=== PATIENT | male | born 1965 | race Caucasian/White ===

== ENCOUNTER 2017-09-07 09:46 | Day surgery (SDC) | payer BC ==
[2017-09-01 09:35] VITALS: BMI 29.8
[~2017-09-07 09:46] MED LIST: LACTATED RINGERS 1,000 ML IV SCH; LIDOCAINE 1% 20 ML VIAL (10MG/ML) FOR IV START INTRADERMA PRN
[2017-09-07 10:25] VITALS: TEMP 97.6
[2017-09-07] MEDS ORDERED: MIDAZOLAM 2 MG/2 ML VIAL IV ONE (10:30)
[2017-09-07] MEDS ORDERED: LIDOCAINE 1% INJ 10MG/ML (20 ML MDV) ONE (11:22)
[2017-09-07] MEDS ORDERED: PROPOFOL 10 MG/ML 20 ML VIAL IV ONE (11:22)
--- NOTE | 2017-09-07 11:59 | P.PCN ---
Date of Procedure: 09/07/17 Procedure(s) Performed: procedure: Colonoscopy and biopsy. Preoperative diagnosis: Hemoccult-positive stools. Postoperative diagnosis: 1. Diminutive polyp in the distal sigmoid biopsied but no large polyps or cancer. 2. Low-grade internal hemorrhoids without bleeding at the time of the exam. 3. Colon, otherwise, within normal limits, biopsies obtained from the right colon and blind biopsies obtained from the terminal ileum.. Preparation: GoLYTELY prep. Sedation: Was provided by anesthesia. Brief clinical history: The patient is a 52-year-old male who is referred for this evaluation because of positive occult blood in his stools. He apparently had chronic issues with diarrhea that is ascribed to irritable bowel syndrome but has no overt bleeding or other new complaints. No family history of colon cancer or inflammatory bowel disease. This would be his first colonoscopy. Procedure: With the patient on his left lateral decubitus position and after informed consent and adequate sedation, the perianal area was inspected and it did not show any fissures or fistulas. There were no masses felt on digital rectal examination. The Olympus CFQ 160L video colonoscope was then inserted in the rectum in the usual fashion and advanced to the cecum. I was not able to intubate the ileocecal valve but I was able to obtain blind biopsy from the terminal ileum. The colon appeared normal with no large polyps or cancer. The mucosa appeared healthy. There was a diminutive polyp in the distal sigmoid which I biopsied, I also obtained biopsies from the right colon. There was no obvious diverticular disease or other pathology. I retroflexed the endoscope in the rectum before the endoscope was withdrawn. Low-grade internal hemorrhoids were noted but there was no evidence of bleeding. The patient tolerated the procedure well. Plan: The patient was reassured. Will await pathology results. In the absence of upper GI complaints or anemia, I did not recommend upper GI workup at this time for further workup of his Hemoccult positive stools and this can be left as a contingency. For colon cancer screening in the future, I am recommending repeat colonoscopy in 5 years.
[2017-09-07 12:12] VITALS: RESP 16
[2017-09-07 12:22] VITALS: BP 137/73; PULSE 86
== END 2017-09-07 13:01 | disposition home or self-care (01) ==
LOC: ORWHC2ENDO 09:46
DX: K63.5 Polyp of colon (principal); K64.8 Other hemorrhoids; R19.5 Other fecal abnormalities; E78.5 Hyperlipidemia, unspecified; K21.9 Gastro-esophageal reflux disease without esophagitis; Z72.0 Tobacco use
CPT/HCPCS: 88305; 45380; J2250; J2001; J2704

== ENCOUNTER 2017-12-18 06:04 | Emergency (ER) | payer BC ==
[2017-12-18] MEDS ORDERED: SODIUM CHLORIDE 0.9% 1,000 ML IV STA ×2 (06:07)
[2017-12-18] MEDS ORDERED: MORPHINE SULFATE 4 MG/ML SYRINGE IV STA (06:07)
[2017-12-18] MEDS ORDERED: ONDANSETRON 4 MG/2 ML VIAL IVP STA (06:07)
[2017-12-18] MEDS ORDERED: RX INFO: IV CONTRAST WAS GIVEN 1 EACH MISC MISCELLANE PRN ×2 (06:29→06:30)
--- NOTE | 2017-12-18 06:30 | ED ---
General Adult HPI - General Source: patient, RN notes reviewed, old records reviewed Mode of arrival: ambulatory Limitations: no limitations <Wicho Lal - Last Filed: 12/18/17 06:29> <Cameron Kelly - Last Filed: 12/18/17 08:43> - General Chief complaint: Abdominal Pain Stated complaint: upper abd pain Time Seen by Provider: 12/18/17 06:07 - History of Present Illness Initial comments: This is a 52-year-old male the ER for evaluation of abdominal pain. Severe epigastric anterior abdominal pain. Periumbilical abdominal pain. Patient states pain started yesterday. Was milder yesterday and worse today. Worse with cough. Denies significant history of similar pain. Patient has a history of GI bleed with colonoscopy which was normal. No recent travel history or sick contacts no chest pain or shortness of breath. Patient does admit to being a smoker. (Wicho Lal) - Related Data Home Medications Medication Instructions Recorded Confirmed Diclofenac Sodium/Misoprostol 1 each PO DAILY PRN 09/01/17 09/07/17 [Arthrotec 75 mg-200 Mcg Tab] HYDROcodone/APAP 5-325MG [[place] 1 each PO BID PRN 09/01/17 09/07/17 5-325] Rosuvastatin Calcium [Crestor] 5 mg PO HS 09/01/17 09/07/17 Allergies Allergy/AdvReac Type Severity Reaction Status Date / Time No Known Allergies Allergy Verified 12/18/17 06:10 Review of Systems ROS Other: All systems not noted in ROS Statement are negative. <Wicho Lal - Last Filed: 12/18/17 06:29> ROS Other: All systems not noted in ROS Statement are negative. <Cameron Kelly - Last Filed: 12/18/17 08:43> ROS Statement: Those systems with pertinent positive or pertinent negative responses have been documented in the HPI. Past Medical History Past Medical History: Hyperlipidemia Additional Past Medical History / Comment(s): POSITIVE HEMOCCULT TEST History of Any Multi-Drug Resistant Organisms: None Reported Past Surgical History: Orthopedic Surgery Additional Past Surgical History / Comment(s): LT WRIST SX. VASECTOMY Past Anesthesia/Blood Transfusion Reactions: No Reported Reaction Past Psychological History: No Psychological Hx Reported Smoking Status: Current every day smoker Past Alcohol Use History: Daily Past Drug Use History: None Reported - Past Family History Mother Family Medical History: No Reported History <Wicho Lal - Last Filed: 12/18/17 06:29> General Exam Limitations: no limitations General appearance: alert, in no apparent distress Head exam: Present: atraumatic, normocephalic, normal inspection Eye exam: Present: normal appearance, PERRL, EOMI. Absent: scleral icterus, conjunctival injection, periorbital swelling ENT exam: Present: normal exam, mucous membranes moist Neck exam: Present: normal inspection. Absent: tenderness, meningismus, lymphadenopathy Respiratory exam: Present: normal lung sounds bilaterally. Absent: respiratory distress, wheezes, rales, rhonchi, stridor Cardiovascular Exam: Present: regular rate, normal rhythm, normal heart sounds. Absent: systolic murmur, diastolic murmur, rubs, gallop, clicks GI/Abdominal exam: Present: soft, distended, tenderness (Epigastric, periumbilical), normal bowel sounds. Absent: guarding, rebound, rigid Extremities exam: Present: normal inspection, full ROM, normal capillary refill. Absent: tenderness, pedal edema, joint swelling, calf tenderness Back exam: Present: normal inspection Neurological exam: Present: alert, oriented X3, CN II-XII intact Psychiatric exam: Present: normal affect, normal mood Skin exam: Present: warm, dry, intact, normal color. Absent: rash <Wicho Lal - Last Filed: 12/18/17 06:29> Course <Wicho Lal - Last Filed: 12/18/17 06:29> <Cameron Kelly - Last Filed: 12/18/17 08:43> Vital Signs 12/18/17 12/18/17 06:07 08:01 Temperature 98.3 F Pulse Rate 93 84 Respiratory 20 16 Rate Blood Pressure 172/90 166/71 O2 Sat by Pulse 97 98 Oximetry - Reevaluation(s) Reevaluation #1: 12/18/17 08:39 On reevaluation, patient is feeling better. (Cameron Kelly) Medical Decision Making - Radiology Data Radiology results: report reviewed (CT abdomen and pelvis), image reviewed <Wicho Lal Last Filed: 12/18/17 06:29> - Lab Data Result diagrams: 12/18/17 06:20 12/18/17 06:20 <Cameron Kelly - Last Filed: 12/18/17 08:43> - Medical Decision Making 52-year-old male with anterior abdominal pain worse with cough, worse while sitting up. On exam patient does have anterior abdominal hernia, this is soft. Pain reproduced when patient sits up. Laboratory studies obtained, normal hemoglobin, white blood cell count mildly elevated 11.9, normal electrolytes. CT shows esophagitis, patient does admit to current symptoms. Gallbladder is prominent with no stones, no signs of cholecystitis. Patient still has some pain on reevaluation, but is improved. He is offered observation for continued pain management and general surgery consultation, he prefers to be discharged home and will follow up as an outpatient. He will return with any worsening or changing symptoms. (Cameron Kelly) - Lab Data Lab Results 12/18/17 12/18/17 12/18/17 Range/Units 06:20 06:20 06:20 WBC 11.9 H (3.8-10.6) k/uL RBC 4.72 (4.30-5.90) m/uL Hgb 15.3 (13.0-17.5) gm/dL Hct 44.6 (39.0-53.0) % MCV 94.5 (80.0-100.0) fL MCH 32.3 (25.0-35.0) pg MCHC 34.2 (31.0-37.0) g/dL RDW 13.4 (11.5-15.5) % Plt Count 444 (150-450) k/uL Neutrophils % 58 % Lymphocytes % 29 % Monocytes % 8 % Eosinophils % 2 % Basophils % 0 % Neutrophils # 6.9 (1.3-7.7) k/uL Lymphocytes # 3.4 (1.0-4.8) k/uL Monocytes # 1.0 (0-1.0) k/uL Eosinophils # 0.3 (0-0.7) k/uL Basophils # 0.1 (0-0.2) k/uL Sodium 140 (137-145) mmol/L Potassium 4.5 (3.5-5.1) mmol/L Chloride 106 (98-107) mmol/L Carbon Dioxide 24 (22-30) mmol/L Anion Gap 10 mmol/L BUN 21 H (9-20) mg/dL Creatinine 0.80 (0.66-1.25) mg/dL Est GFR (CKD-EPI)AfAm >90 (>60 ml/min/1.73 sqM) Est GFR (CKD-EPI)NonAf >90 (>60 ml/min/1.73 sqM) Glucose 103 H (74-99) mg/dL Plasma Lactic Acid Jose De Jesus 0.9 (0.7-2.0) mmol/L Calcium 9.9 (8.4-10.2) mg/dL Total Bilirubin 0.3 (0.2-1.3) mg/dL AST 37 (17-59) U/L ALT 87 H (21-72) U/L Alkaline Phosphatase 73 (38-126) U/L Total Protein 7.4 (6.3-8.2) g/dL Albumin 4.4 (3.5-5.0) g/dL Amylase 63 (30-110) U/L Lipase 138 (23-300) U/L Disposition <Wicho Lal - Last Filed: 12/18/17 06:29> Time of Disposition: 08:42 <Cameron Kelly - Last Filed: 12/18/17 08:43> Clinical Impression: Esophagitis, Ventral hernia Disposition: HOME SELF-CARE Condition: Good Instructions: Esophagitis (ED), Ventral Hernia (ED) Referrals: Ce Wilson MD [Primary Care Provider] - 1-2 days Richard Fisher DO [Doctor of Osteopathic Medicine] - 1-2 days
[2017-12-18 06:41] LABS: Basophils # (A) 0.1 k/uL (0-0.2); Basophils % (A) 0 %; Eosinophils # (A) 0.3 k/uL (0-0.7); Eosinophils % (A) 2 %; HCT 44.6 % (39.0-53.0); HGB 15.3 gm/dL (13.0-17.5); Lymphocytes # (A) 3.4 k/uL (1.0-4.8); Lymphocytes % (A) 29 %; MCH 32.3 pg (25.0-35.0); MCHC 34.2 g/dL (31.0-37.0); MCV 94.5 fL (80.0-100.0); Mean Platelet Volume 6.5; Monocytes % (A) 8 %; Neutrophils # (A) 6.9 k/uL (1.3-7.7); Neutrophils % (A) 58 %; Platelet Count 444 k/uL (150-450); RBC 4.72 m/uL (4.30-5.90); RDW 13.4 % (11.5-15.5); WBC 11.9 k/uL (3.8-10.6)
[2017-12-18 06:53] LABS: ALT 87 U/L (21-72); AST 37 U/L (17-59); Albumin 4.4 g/dL (3.5-5.0); Alkaline Phosphatase 73 U/L (38-126); Amylase 63 U/L (30-110); Anion Gap 10 mmol/L; Blood Urea Nitrogen 21 mg/dL (9-20); Calcium 9.9 mg/dL (8.4-10.2); Carbon Dioxide 24 mmol/L (22-30); Chloride 106 mmol/L (98-107); Glucose 103 mg/dL (74-99); Lipase 138 U/L (23-300); Potassium 4.5 mmol/L (3.5-5.1); Sodium 140 mmol/L (137-145); Total Bilirubin 0.3 mg/dL (0.2-1.3); Total Protein 7.4 g/dL (6.3-8.2)
[2017-12-18 08:02] VITALS: RESP 16
--- NOTE | 2017-12-18 08:11 | CT ---
EXAMINATION TYPE: CT angio chest DATE OF EXAM: 12/18/2017 COMPARISON: NONE HISTORY: Upper abdominal pain CT DLP: 1946.40 mGycm. Automated Exposure Control for Dose Reduction was Utilized. CONTRAST: CTA scan of the thorax is performed with IV Contrast, patient injected with 100 ml mL of Omnipaque 35 0, pulmonary embolism protocol. 3-D MIP Images are created on CT scanner and reviewed. FINDINGS: LUNGS: The lungs are grossly clear, there is no concerning parenchymal mass or nodule identified. Barrett bsegmental dependent atelectasis is seen bilaterally. There is no pleural effusion or pneumothorax se en. The tracheobronchial tree is patent. MEDIASTINUM: There is satisfactory enhancement of the pulmonary artery and its branches, there is no CT evidence for pulmonary embolism. Multiple prominent but nonenlarged mediastinal lymph nodes are s een. There are no greater than 1 cm hilar or mediastinal lymph nodes. No cardiomegaly or pericardia l effusion is seen. Incidental note is made of a bovine configuration of the aortic arch. OTHER: Gallbladder is noted to be elongated measuring at least 9.3 cm. Punctate calcification within the pancreatic parenchyma may be sequela of chronic pancreatitis. Ill-defined right upper pole possib le right renal cyst is noted. Small splenule is seen adjacent to the spleen. Mild distal circumferent ial thickening of the esophagus could relate to esophagitis. Multilevel moderate degenerative changes of the thoracic spine are noted. IMPRESSION: 1. No evidence of pulmonary embolus. 2. Elongation of the gallbladder that should be correlated with serum laboratory values to determine the need for right upper quadrant ultrasound or HIDA scan. 3. Mild circumferential distal esophageal thickening that could relate to esophagitis.
--- NOTE | 2017-12-18 08:29 | CT ---
EXAMINATION TYPE: CT abdomen pelvis w con DATE OF EXAM: 12/18/2017 COMPARISON: NONE HISTORY: Upper abdominal pain CT DLP: 1946.40 mGycm Automated exposure control for dose reduction was used. CONTRAST: CT scan of the abdomen pelvis is performed with IV Contrast, patient injected with 100 ml mL of Omnip aque 350. FINDINGS- LUNG BASES- No significant abnormality is appreciated. LIVER/GB-gallbladder prominent in size with no obvious gallstones.. PANCREAS- No gross abnormality is seen. SPLEEN- No gross abnormality is seen. ADRENALS- No gross abnormality is seen. KIDNEYS/BLADDER-no hydronephrosis. Multiple hypodensities within the kidneys bilaterally some of whic h are too small to characterize and could be correlated with MRI.. BOWEL- no bowel dilatation. There is thickening of the distal wall the esophagus with a small hiatal hernia. Correlate for mucosal abnormality or esophagitis.. LYMPH NODES- No greater than 1cm abdominal or pelvic lymph nodes are appreciated. OSSEOUS STRUCTURES-bilateral spondylolysis of L5 multilevel hypertrophic and degenerative changes.. OTHER- atherosclerotic change of the aorta with no evidence of aneurysm. IMPRESSION- 1. Gallbladder is prominent size with no evidence of gallstones correlate clinically. 2. Correlate for esophagitis with thickening of the distal wall the esophagus. Consider direct visual ization to exclude other etiologies. 3. Indeterminate renal lesions due to small size correlate with MRI.
[2017-12-18] MEDS ORDERED: MORPHINE SULFATE 4 MG/ML SYRINGE IVP STA (08:30)
[2017-12-18] MEDS ORDERED: PANTOPRAZOLE 40 MG/10 ML VIAL IVP STA (08:33)
[2017-12-18 08:40] LABS: Appearance,Urine Clear (Clear); Bilirubin,Urine Negative (Negative); Blood,Urine Negative (Negative); Color,Urine Light Yellow; Glucose,Urine (UA) Negative (Negative); Ketones,Urine Negative (Negative); Leukocyte Esterase,Urine Negative (Negative); Protein,Urine Negative (Negative); Specific Gravity,Urine 1.033 (1.001-1.035); Urobilinogen,Urine <2.0 mg/dL (<2.0)
[2017-12-18 09:44] VITALS: BP 150/72; PULSE 74; TEMP 97.8
[2017-12-19] MEDS ORDERED: PANTOPRAZOLE 40 MG/10 ML VIAL IVP SCH (09:00)
== END 2017-12-18 09:43 | disposition home or self-care (01) ==
LOC: EC 06:04
DX: K43.9 Ventral hernia without obstruction or gangrene (principal); K20.9 Esophagitis, unspecified; E78.5 Hyperlipidemia, unspecified; F17.200 Nicotine dependence, unspecified, uncomplicated; Z79.899 Other long term (current) drug therapy
CPT/HCPCS: 36415; 80053; 82150; 83605; 83690; 85025; 81003; 71275; 74177; 99284; 96374; 96375 ×2; 96376; 96361; J2270; Q9967; J2405; C9113

== ENCOUNTER 2018-12-26 10:55 | Observation (INO) | payer BC ==
[2018-12-26 11:00] VITALS: RESP 18
--- NOTE | 2018-12-26 11:25 | ED ---
General Adult HPI - General Chief complaint: Chest Pain Stated complaint: Chest pain,SOB Time Seen by Provider: 12/26/18 11:09 Source: patient, RN notes reviewed, old records reviewed Mode of arrival: ambulatory Limitations: no limitations - History of Present Illness Initial comments: 53-year-old male presenting for evaluation of left-sided chest pain. Pain began yesterday evening greater than 12 hours prior to arrival. Describes pain as dull pain which is sharp at times. Is associated with some dyspnea. Patient has had nausea with no vomiting. No abdominal pain. No diaphoresis. No known history of CAD. Patient is a current smoker. No history diabetes. No pain in his arms or neck. He does report some pain radiating to his back. - Related Data Home Medications Medication Instructions Recorded Confirmed Diclofenac Sodium/Misoprostol 1 tab PO DAILY PRN 09/01/17 12/26/18 [Arthrotec 75 mg-200 Mcg Tab] HYDROcodone/APAP 5-325MG [[place] 1 tab PO BID PRN 09/01/17 12/26/18 5-325] Rosuvastatin Calcium [Crestor] 5 mg PO HS 09/01/17 12/26/18 Omeprazole [PriLOSEC] 20 mg PO DAILY 12/26/18 12/26/18 Allergies Allergy/AdvReac Type Severity Reaction Status Date / Time No Known Allergies Allergy Verified 12/26/18 11:18 Review of Systems ROS Statement: Those systems with pertinent positive or pertinent negative responses have been documented in the HPI. ROS Other: All systems not noted in ROS Statement are negative. Past Medical History Past Medical History: Hyperlipidemia Additional Past Medical History / Comment(s): POSITIVE HEMOCCULT TEST History of Any Multi-Drug Resistant Organisms: None Reported Past Surgical History: Orthopedic Surgery Additional Past Surgical History / Comment(s): LT WRIST SX. VASECTOMY Past Anesthesia/Blood Transfusion Reactions: No Reported Reaction Past Psychological History: No Psychological Hx Reported Smoking Status: Current every day smoker Past Alcohol Use History: Daily Past Drug Use History: None Reported - Past Family History Mother Family Medical History: No Reported History General Exam Limitations: no limitations General appearance: alert, in no apparent distress Head exam: Present: atraumatic, normocephalic Eye exam: Present: normal appearance, PERRL ENT exam: Present: normal exam Neck exam: Present: normal inspection. Absent: tenderness, meningismus Respiratory exam: Present: normal lung sounds bilaterally. Absent: respiratory distress, wheezes Cardiovascular Exam: Present: regular rate, normal rhythm GI/Abdominal exam: Present: soft. Absent: distended, tenderness Extremities exam: Present: normal inspection, normal capillary refill. Absent: pedal edema, calf tenderness Neurological exam: Present: alert, oriented X3 Psychiatric exam: Present: normal affect, normal mood Skin exam: Present: warm, dry, intact. Absent: cyanosis, diaphoretic Course Vital Signs 12/26/18 12/26/18 10:58 12:38 Temperature 97.5 F L Pulse Rate 85 67 Respiratory 18 18 Rate Blood Pressure 152/86 117/80 O2 Sat by Pulse 98 98 Oximetry EKG Findings - EKG Comments: EKG Findings:: EKG: Normal sinus rhythm, left anterior fascicular block, rate of 83, ID interval 154, QRS duration 86, QTC 437, no ST segment elevation Medical Decision Making - Medical Decision Making 53-year-old male presenting for evaluation of chest pain. EKG negative for definitive signs of ischemia, no ST segment elevation. Chest x-ray negative for acute cardiopulmonary disease. Patient has normal CBC, normal CMP, initial troponin is negative, d-dimer negative. Patient will be placed in observation for echo, telemetry, serial Cardec enzymes, and cardiology consultation. Case discussed with Dr. Mg, who will accept admission - Lab Data Result diagrams: 12/26/18 11:15 12/26/18 11:15 Lab Results 12/26/18 12/26/18 12/26/18 Range/Units 11:15 11:15 11:15 WBC 9.7 (3.8-10.6) k/uL RBC 5.03 (4.30-5.90) m/uL Hgb 15.9 (13.0-17.5) gm/dL Hct 48.4 (39.0-53.0) % MCV 96.1 (80.0-100.0) fL MCH 31.6 (25.0-35.0) pg MCHC 32.9 (31.0-37.0) g/dL RDW 13.3 (11.5-15.5) % Plt Count 370 (150-450) k/uL Neutrophils % 61 % Lymphocytes % 25 % Monocytes % 7 % Eosinophils % 3 % Basophils % 0 % Neutrophils # 5.9 (1.3-7.7) k/uL Lymphocytes # 2.5 (1.0-4.8) k/uL Monocytes # 0.7 (0-1.0) k/uL Eosinophils # 0.3 (0-0.7) k/uL Basophils # 0.0 (0-0.2) k/uL PT (9.0-12.0) sec INR (<1.2) APTT (22.0-30.0) sec D-Dimer (<0.60) mg/L FEU Sodium 138 (137-145) mmol/L Potassium 4.2 (3.5-5.1) mmol/L Chloride 106 (98-107) mmol/L Carbon Dioxide 23 (22-30) mmol/L Anion Gap 9 mmol/L BUN 20 (9-20) mg/dL Creatinine 0.69 (0.66-1.25) mg/dL Est GFR (CKD-EPI)AfAm >90 (>60 ml/min/1.73 sqM) Est GFR (CKD-EPI)NonAf >90 (>60 ml/min/1.73 sqM) Glucose 98 (74-99) mg/dL Calcium 10.0 (8.4-10.2) mg/dL Magnesium 2.1 (1.6-2.3) mg/dL Total Bilirubin 1.0 (0.2-1.3) mg/dL AST 30 (17-59) U/L ALT 63 (21-72) U/L Alkaline Phosphatase 75 (38-126) U/L Troponin I (0.000-0.034) ng/mL NT-Pro-B Natriuret Pep 223 pg/mL Total Protein 7.7 (6.3-8.2) g/dL Albumin 4.7 (3.5-5.0) g/dL Lipase 68 (23-300) U/L 12/26/18 12/26/18 Range/Units 11:15 11:15 WBC (3.8-10.6) k/uL RBC (4.30-5.90) m/uL Hgb (13.0-17.5) gm/dL Hct (39.0-53.0) % MCV (80.0-100.0) fL MCH (25.0-35.0) pg MCHC (31.0-37.0) g/dL RDW (11.5-15.5) % Plt Count (150-450) k/uL Neutrophils % % Lymphocytes % % Monocytes % % Eosinophils % % Basophils % % Neutrophils # (1.3-7.7) k/uL Lymphocytes # (1.0-4.8) k/uL Monocytes # (0-1.0) k/uL Eosinophils # (0-0.7) k/uL Basophils # (0-0.2) k/uL PT 9.9 (9.0-12.0) sec INR 0.9 (<1.2) APTT 24.8 (22.0-30.0) sec D-Dimer 0.27 (<0.60) mg/L FEU Sodium (137-145) mmol/L Potassium (3.5-5.1) mmol/L Chloride (98-107) mmol/L Carbon Dioxide (22-30) mmol/L Anion Gap mmol/L BUN (9-20) mg/dL Creatinine (0.66-1.25) mg/dL Est GFR (CKD-EPI)AfAm (>60 ml/min/1.73 sqM) Est GFR (CKD-EPI)NonAf (>60 ml/min/1.73 sqM) Glucose (74-99) mg/dL Calcium (8.4-10.2) mg/dL Magnesium (1.6-2.3) mg/dL Total Bilirubin (0.2-1.3) mg/dL AST (17-59) U/L ALT (21-72) U/L Alkaline Phosphatase (38-126) U/L Troponin I <0.012 (0.000-0.034) ng/mL NT-Pro-B Natriuret Pep pg/mL Total Protein (6.3-8.2) g/dL Albumin (3.5-5.0) g/dL Lipase (23-300) U/L Disposition Clinical Impression: Chest pain Disposition: ADMITTED IP TO THIS [facility] Condition: Stable Is patient prescribed a controlled substance at d/c from ED?: No Referrals: Ce Wilson MD [Primary Care Provider] - 1-2 days Decision to Admit Reason: Admit from EC Decision Date: 12/26/18 Decision Time: 12:41
[2018-12-26 11:28] LABS: Basophils % (A) 0 %; Eosinophils # (A) 0.3 k/uL (0-0.7); Eosinophils % (A) 3 %; HCT 48.4 % (39.0-53.0); HGB 15.9 gm/dL (13.0-17.5); Lymphocytes # (A) 2.5 k/uL (1.0-4.8); Lymphocytes % (A) 25 %; MCH 31.6 pg (25.0-35.0); MCHC 32.9 g/dL (31.0-37.0); MCV 96.1 fL (80.0-100.0); Mean Platelet Volume 6.5; Monocytes # (A) 0.7 k/uL (0-1.0); Monocytes % (A) 7 %; Neutrophils # (A) 5.9 k/uL (1.3-7.7); Neutrophils % (A) 61 %; Platelet Count 370 k/uL (150-450); RBC 5.03 m/uL (4.30-5.90); RDW 13.3 % (11.5-15.5); WBC 9.7 k/uL (3.8-10.6)
[2018-12-26 11:39] LABS: ALT 63 U/L (21-72); AST 30 U/L (17-59); Albumin 4.7 g/dL (3.5-5.0); Alkaline Phosphatase 75 U/L (38-126); Anion Gap 9 mmol/L; Blood Urea Nitrogen 20 mg/dL (9-20); Carbon Dioxide 23 mmol/L (22-30); Chloride 106 mmol/L (98-107); Glucose 98 mg/dL (74-99); Lipase 68 U/L (23-300); Magnesium 2.1 mg/dL (1.6-2.3); Potassium 4.2 mmol/L (3.5-5.1); Sodium 138 mmol/L (137-145); Total Protein 7.7 g/dL (6.3-8.2)
--- NOTE | 2018-12-26 11:46 | XR ---
EXAMINATION TYPE: XR chest 2V DATE OF EXAM: 12/26/2018 COMPARISON: Chest CT 12/18/2017 HISTORY: Chest pain TECHNIQUE: Frontal and lateral views of the chest are obtained. FINDINGS: There are cardiac leads. There is no focal air space opacity, pleural effusion, or pneumoth orax seen. The cardiac silhouette size is within normal limits. The osseous structures are intact. IMPRESSION: No acute cardiopulmonary process.
[2018-12-26 11:51] LABS: D-Dimer 0.27 mg/L FEU (<0.60); INR 0.9 (<1.2); Partial Thromboplastin Time 24.8 sec (22.0-30.0); Prothrombin Time 9.9 sec (9.0-12.0)
[2018-12-26] MEDS ORDERED: ASPIRIN 325 MG TAB PO STA (12:12)
[2018-12-26] MEDS ORDERED: SODIUM CHLORIDE 0.9% 500 ML 500 ML IV ONE (12:12)
[2018-12-26] MEDS ORDERED: MECLIZINE 12.5 MG TAB PO STA (12:30)
[2018-12-26] MEDS ORDERED: ACETAMINOPHEN TAB 325 MG TAB PO PRN (12:37)
[2018-12-26] MEDS ORDERED: NALOXONE 0.4 MG/ML 1 ML VIAL IV PRN (12:37)
[2018-12-26] MEDS ORDERED: MORPHINE SULFATE 4 MG/ML SYRINGE IV PRN (12:37)
[2018-12-26] MEDS ORDERED: NITROGLYCERIN SL TABS 0.4 MG TAB SUBLINGUAL PRN (12:38)
[2018-12-26] MEDS: NICOTINE 14MG/24HR PATCH TRANSDERM SCH (16:15)
[2018-12-26] MEDS: HEPARIN SODIUM,PORCINE 5,000 UNIT/ML 1 ML VIAL SQ SCH ×2 (16:15→23:20)
[2018-12-26] MEDS: PANTOPRAZOLE 40 MG TABLET PO SCH (16:16)
[2018-12-26] MEDS: HYDROcodone/APAP 5-325MG 1 EACH TAB PO PRN (20:42)
[2018-12-26] MEDS ORDERED: ATORVASTATIN 10 MG TAB PO SCH (21:00)
--- NOTE | 2018-12-26 23:55 | P.HPIM ---
History of Present Illness H&P Date: 12/26/18 Chief Complaint: Chest pain Patient is a 53-year-old male with a known history of hyperlipidemia, nicotine addiction, alcohol use with 4 beers about 3 times per week came to ER with complaints of chest pain associated with shortness of breath. Chest pain mainly left retrosternal. Patient states that he developed chest pain last night after doing strenuous activity at his workplace. Patient again had chest pain this morning associated with shortness of breath, dizziness and nausea. Pain doesn't radiate to the back . no radiation to the arm or jaw's.. Last about half hour. No diaphoresis. Patient is also complaining of headache and back pain as well. Patient does not have any history of coronary disease. Patient does smoke 1 pack per day. Patient does take daily diclofenac/misoprostol-Orthotec for his back pain. EKG showed normal sinus rhythm Chest x-ray showed no acute cardiopulmonary process D-dimer is not elevated Troponin 1 negative BNP 223 Review of Systems Constitutional: Patient denies any fever or chills . No generalized weakness or weight loss. Abdomen: Patient denied nausea vomiting and diarrhea and abdominal pain. Cardiovascular: Chest pain associated with shortness of breath and radiation to the back. No leg swelling no palpitations. Respiratory: patient denied any cough is from production. No shortness of breath Neurologic: Patient denied any numbness or tingling headache. Musculoskeletal: Patient denies any complaints of joint swelling or deformity. Back pain. Skin: Negative Psychiatric: Negative Endocrine: No heat or cold intolerance. No recent weight gain. Genitourinary: No dysuria or hematuria. All other 14 point ROS negative except the above Past Medical History Past Medical History: Hyperlipidemia Additional Past Medical History / Comment(s): POSITIVE HEMOCCULT TEST History of Any Multi-Drug Resistant Organisms: None Reported Past Surgical History: Orthopedic Surgery Additional Past Surgical History / Comment(s): LT WRIST SX. VASECTOMY Past Anesthesia/Blood Transfusion Reactions: No Reported Reaction Past Psychological History: No Psychological Hx Reported Smoking Status: Current every day smoker Past Alcohol Use History: Occasional Additional Past Alcohol Use History / Comment(s): SMOKES 1 PPD SINCE AGE 13, drinks 4 beers about 3 times per week. Past Drug Use History: None Reported - Past Family History Mother Family Medical History: No Reported History Father Family Medical History: Hypertension Additional Family Medical History / Comment(s): irregular heart beat. Brother(s) Family Medical History: Diabetes Mellitus Additional Family Medical History / Comment(s): Type 1 DM. Medications and Allergies Home Medications Medication Instructions Recorded Confirmed Type Diclofenac Sodium/Misoprostol 1 tab PO DAILY PRN 09/01/17 12/26/18 History [Arthrotec 75 mg-200 Mcg Tab] HYDROcodone/APAP 5-325MG [[place] 1 tab PO BID PRN 09/01/17 12/26/18 History 5-325] Rosuvastatin Calcium [Crestor] 5 mg PO HS 09/01/17 12/26/18 History Omeprazole [PriLOSEC] 20 mg PO DAILY 12/26/18 12/26/18 History Allergies Allergy/AdvReac Type Severity Reaction Status Date / Time No Known Allergies Allergy Verified 12/26/18 11:18 Physical Exam Vitals: Vital Signs Temp Pulse Pulse Resp BP BP Pulse Ox 12/26/18 14:43 60 18 12/26/18 14:32 97.9 F 60 18 141/73 98 12/26/18 13:46 78 18 117/78 98 12/26/18 12:38 67 18 117/80 98 12/26/18 10:58 97.5 F L 85 18 152/86 98 Intake and Output 12/26/18 12/26/18 12/26/18 06:59 14:59 22:59 Intake Total 480 Balance 480 Intake: Oral 480 Other: Voiding Method Toilet # Voids 2 Weight 95.254 kg PHYSICAL EXAMINATION: Patient is lying in the bed comfortably, no acute distress, awake alert and oriented.. HEENT: Normocephalic. Neck is supple. Pupils reactive. Nostrils clear. Oral cavity is moist. Ears reveal no drainage. Neck reveals no JVD, carotid bruits, or thyromegaly. CHEST EXAMINATION: Trachea is central. Symmetrical expansion. Lung thorpe clear to auscultation and percussion. CARDIAC: Normal S1, S2 with no gallops. No murmurs ABDOMEN: Soft. Bowel sounds normal. No organomegaly. No abdominal bruits. Extremities: reveal no edema. No clubbing or cyanosis Neurologically awake, alert, oriented x3 with well-coordinated movements. No focal deficits noted Skin: No rash or skin lesions. Psychiatric: Coperative. Nonsuicidal Musculoskeletal: No joint swelling or deformity. Normal range of motion. Results CBC & Chem 7: 12/26/18 11:15 12/26/18 11:15 Thrombosis Risk Factor Assmnt - DVT/VTE Prophylaxis DVT/VTE Prophylaxis: Pharmacologic Prophylaxis ordered - Choose All That Apply Any of the Below Risk Factors Present?: Yes Each Factor Represents 1 point: Age 41-60 years Thrombosis Risk Factor Assessment Total Risk Factor Score: 1 Thrombosis Risk Factor Assessment Level: Low Risk Assessment and Plan Assessment: Atypical chest pain. Rule out ACS. Nicotine addiction Alcohol use 3 times per week Chronic back pain and on pain medications including diclofenac and [place] GERD Hyperlipidemia DVT prophylaxis with heparin subcu Plan: Patient will be continued on telemetry monitoring. Initial EKG and troponins negative. D-dimer is not elevated. Patient's symptoms could also be GI related. We will rule out acute coronary syndrome. Cardiology will be consulted further recommendations based on the clinical course. Smoking cessation and alcohol use has been counseled extensively. Continue PPI. Time with Patient: Greater than 30
[2018-12-27] MEDS ORDERED: MELATONIN 5 MG TABLET PO SCH (00:15)
[2018-12-27] MEDS ORDERED: ASPIRIN 325 MG TAB PO STA (07:28)
[2018-12-27] MEDS ORDERED: ALPRAZolam 0.5 MG TAB PO PRN (07:28)
[2018-12-27] MEDS ORDERED: NITROGLYCERIN SL TABS 0.4 MG TAB SUBLINGUAL PRN (07:28)
[2018-12-27] MEDS ORDERED: ALPRAZolam 0.25 MG TAB PO PRN (07:28)
[2018-12-27] MEDS ORDERED: ATORVASTATIN 80 MG TAB PO STA (07:28)
[2018-12-27] MEDS ORDERED: SODIUM CHLORIDE 0.9% 1,000 ML in EMPTY BAG 1 BAG IV ONE (07:28)
[2018-12-27] MEDS: HEPARIN SODIUM,PORCINE 5,000 UNIT/ML 1 ML VIAL SQ SCH (07:41)
[2018-12-27] MEDS: PANTOPRAZOLE 40 MG TABLET PO SCH (07:41)
[2018-12-27] MEDS: HYDROcodone/APAP 5-325MG 1 EACH TAB PO PRN (07:41)
[2018-12-27] MEDS: NICOTINE 14MG/24HR PATCH TRANSDERM SCH (07:41)
--- NOTE | 2018-12-27 07:58 | CONS ---
CONSULTATION Mr. Pablo is a 53-year-old male with known history of chronic tobacco use, history of hyperlipidemia who presented with chest discomfort. The discomfort started at home after doing some physical work and reoccurred yesterday. It was worse when he exerts himself and better with resting. It is radiating between his upper shoulder blade. He had some dyspnea with it. He denies any dizziness or palpitation. No syncope. No PND, orthopnea, or peripheral edema. He has no prior documented history of coronary artery disease or recent cardiac workup. He is pain free at this time. His coronary risk factors are positive for history of chronic tobacco use and a history of hyperlipidemia. MEDICATIONS: His medications include Crestor 5 mg daily, Prilosec 20 mg daily, [place] on p.r.n. basis and Arthrotec. REVIEW OF SYSTEMS: RESPIRATORY SYSTEM: He has no documented history of asthma, emphysema, but he has chronic tobacco use. GI SYSTEM: No recent GI bleeding. No peptic ulcer disease. SYSTEM: No dysuria or hematuria. NERVOUS SYSTEM: No stroke or seizure. PHYSICAL EXAMINATION: A 53-year-old male, alert, oriented, in no apparent distress. Blood pressure 128/70 with the heart rate in the 60s. HEAD: Normocephalic. EYES: Sclerae anicteric. NECK: Good carotid upstroke. No bruit. No jugular venous distention. LUNGS: Clear to auscultation. HEART: Regular rate and rhythm. S1, S2. No S3. No S4. No murmur or rub. ABDOMEN: Soft, nontender. Positive bowel sounds. No organomegaly. EXTREMITIES: No edema. Intact distal pulses. LAB DATA: Lab data revealed troponin less than 0.012 for 3 samples. BUN and creatinine 20 and 0.69. Hemoglobin 15.9. EKG revealed a sinus mechanism, left axis deviation, normal intervals. Chest x-ray shows no acute infiltrate. IMPRESSION: 1. Chest discomfort of unclear etiology has some exertion in pattern in a patient with history of hyperlipidemia and chronic tobacco use. 2. Chronic tobacco use. The patient smokes a pack and a half a day. 3. Hyperlipidemia. RECOMMENDATION: I have recommended proceeding with coronary angiography to assess his status and guide his treatment. The rationale behind the procedure as well as the risks and complication were discussed with the patient who is in full understanding and agreement. Thank you for this consult. We will follow with you. MMODL / IJN: [id number] /
[2018-12-27] MEDS ORDERED: ASPIRIN 325 MG TAB PO SCH (09:00)
[2018-12-27] MEDS ORDERED: fentaNYL (PF) 50 MCG/ML 2 ML AMP IV ONE (09:02)
[2018-12-27] MEDS ORDERED: IV FLUID CONTINUATION 1,000 ML IV ONE (09:03)
[2018-12-27] MEDS ORDERED: LIDOCAINE 1% INJ 10MG/ML (20 ML MDV) SQ ONE (09:06)
[2018-12-27] MEDS: MIDAZOLAM 2 MG/2 ML VIAL IV ONE ×2 (09:06→09:09)
[2018-12-27] MEDS ORDERED: VERAPAMIL SYRINGE (5 MG/10 ML) INTRAARTER ONE (09:07)
[2018-12-27] MEDS ORDERED: IOPAMIDOL-370 150ML BTL INJ ONE (09:18)
[2018-12-27] MEDS ORDERED: RX INFO: IV CONTRAST WAS GIVEN 1 EACH MISC MISCELLANE PRN (09:27)
[2018-12-27] MEDS ORDERED: SODIUM CHLORIDE 0.9% 1,000 ML IV SCH (09:30)
[2018-12-27 09:46] VITALS: TEMP 97.8
--- NOTE | 2018-12-27 10:04 | CC ---
CARDIAC CATHETERIZATION REPORT Mr. Pablo is a 53-year-old male with known history of chronic tobacco use, history of hyperlipidemia, who presented with exertional chest discomfort radiating to the back, going on for the last 2 days. In view of that, recommendation made regarding cardiac catheterization. The procedures, risks, and complication were discussed with the patient who is in full understanding and agreement. PROCEDURE: Patient was brought to the labour market economist in a fasting semi-sedated state after receiving fentanyl and Benadryl and achieving moderate conscious sedated state. Using Xylocaine anesthesia and Seldinger technique, a 6-Mohawk sheath was introduced in the right radial artery. Selective right and left coronary angiography was performed using 5- Mohawk, 3.5 bend right and left Otf catheter. Multiple views of the coronary artery including hemiaxial views obtained. Following that, a 5-Mohawk tight pigtail catheter was introduced in the left ventricle and a 30 degree SCHNEIDER view of the left ventricle was obtained. Following that, catheter and sheath were removed. Hemostasis was obtained with deployment of TR band. There was no immediate complication. Patient is returned to his room in stable condition. Of note, the patient received 5000 units of intravenous heparin as well as intra-arterial verapamil. FINDINGS: LEFT MAIN: This is a large-sized vessel, bifurcating into left circumflex, left anterior descending artery, left main coronary artery has no evidence of high-grade stenosis. LEFT ANTERIOR DESCENDING ARTERY: This is a large-sized vessel, reaching toward the apex with a wraparound apex segment, giving rise to 2 diagonal branches of moderate caliber at the takeoff of the first septal button cutting machine operator. There is a 20% plaque. The rest of the vessel has no high-grade stenosis. LEFT CIRCUMFLEX: This is a nondominant vessel giving rise to 3 obtuse marginal branches, the first one is very proximal. The left circumflex as well as branches have no evidence of obstructive coronary artery disease. RIGHT CORONARY ARTERY: This is a dominant vessel, moderate in caliber, bifurcating distally into PDA and posterolateral segment and branches. The right coronary artery as well as branches have no evidence of obstructive coronary artery disease. LEFT VENTRICULOGRAM: Left ventriculogram is performed in 30 degree SCHNEIDER view and revealed normal left ventricular size and systolic function. Ejection fraction is 60%. HEMODYNAMICS: There was no gradient across the aortic valve. The left ventricular end- diastolic pressure was 10-12 mmHg. CONCLUSION: 1. Mild intimal disease involving the proximal LAD. 2. Normal left ventricular size and systolic function. RECOMMENDATION: In view of finding anatomy, I recommend continue medical therapy with aggressive risk modifications being initiated. Those findings and recommendation were discussed with the patient and his family who are in full understanding and agreement. Duration of the procedure is 15 minutes. SUSAN / RANI: [id number] /
--- NOTE | 2018-12-27 10:43 | ECHOF ---
Referral Reason:cp MEASUREMENTS -------- HEIGHT: 182.9 cm WEIGHT: 95.3 kg BP: 128/75 RVIDd: 3.2 cm (< 3.3) IVSd: 1.5 cm (0.6 - 1.1) LVIDd: 3.5 cm (3.9 - 5.3) LVPWd: 1.6 cm (0.6 - 1.1) IVSs: 1.7 cm LVIDs: 2.8 cm LVPWs: 2.0 cm LA Diam: 3.6 cm (2.7 - 3.8) LAESV Index (A-L): 18.57 ml/m Ao Diam: 3.3 cm (2.0 - 3.7) AV Cusp: 2.6 cm (1.5 - 2.6) MV EXCURSION: 19.523 mm (> 18.000) MV EF SLOPE: 91 mm/s (70 - 150) EPSS: 0.5 cm MV E Giovani: 0.73 m/s MV DecT: 342 ms MV A Giovani: 0.55 m/s MV E/A Ratio: 1.32 FINDINGS -------- Sinus rhythm. This was a technically good study. The left ventricular size is normal. There is moderate concentric left ventricular hypertrophy. O verall left ventricular systolic function is normal with, an EF between 55 - 60 %. The diastolic fi lling pattern is normal for the age of the patient 9.78. The right ventricle is normal in size. Normal LA size by volume 22+/-6 ml/m2. The right atrial size is normal. The aortic valve is trileaflet, and appears structurally normal. No aortic stenosis or regurgitation. The mitral valve is normal. Mild mitral regurgitation is present. The tricuspid valve appears structurally normal. Mild tricuspid regurgitation present. Trace/mild (physiologic) pulmonic regurgitation. The aortic root size is normal. Normal inferior vena cava with normal inspiratory collapse consistent with estimated right atrial pre ssure of 5 mmHg. The inferior vena cava is mildly dilated. There is no pericardial effusion. CONCLUSIONS -------- 1. Sinus rhythm. 2. This was a technically good study. 3. The left ventricular size is normal. 4. There is moderate concentric left ventricular hypertrophy. 5. Overall left ventricular systolic function is normal with, an EF between 55 - 60 %. 6. Normal LA size by volume 22+/-6 ml/m2. 7. The aortic valve is trileaflet, and appears structurally normal. No aortic stenosis or regurgitati on. 8. Mild mitral regurgitation is present. 9. Mild tricuspid regurgitation present. 10. Trace/mild (physiologic) pulmonic regurgitation. 11. The aortic root size is normal. 12. Normal inferior vena cava with normal inspiratory collapse consistent with estimated right atrial pressure of 5 mmHg. 13. The inferior vena cava is mildly dilated. 14. There is no pericardial effusion. ENROBING MACHINE CORDER: Leyla Dickerson RDCS
[2018-12-27 12:17] VITALS: BP 137/85; PULSE 61
[2018-12-28] MEDS ORDERED: ASPIRIN 81 MG PO SCH (09:00)
== END 2018-12-27 13:11 | disposition home or self-care (01) ==
LOC: EC 10:55 → 1SOBS 12:37
PROVIDERS: ADMIT Internal Medicine; ATTEND Internal Medicine
DX: R07.89 Other chest pain (principal); G89.29 Other chronic pain; M54.9 Dorsalgia, unspecified; R06.02 Shortness of breath; R06.00 Dyspnea, unspecified; R11.0 Nausea; R42 Dizziness and giddiness; R51 Headache; K21.9 Gastro-esophageal reflux disease without esophagitis; E78.5 Hyperlipidemia, unspecified; F17.210 Nicotine dependence, cigarettes, uncomplicated; Z82.49 Family history of ischemic heart disease and other diseases of the circulatory system; Z79.899 Other long term (current) drug therapy; Z83.3 Family history of diabetes mellitus
CPT/HCPCS: 96372 ×2; 96360; 99285; 36415; 93005; 93306; 93458; 85379; 83880; 80053; 83690; 83735; 84484; 85025; 85610; 85730; 71046; G0378 ×2; C1894; C1769; S4990 ×2; J2250; J1644 ×3; J2001; J3010; Q9967

== ENCOUNTER → 2019-07-27 | Outpatient (CLI) | payer BC | END | disposition home or self-care (01) | LOC: NEUROMAIN 08:50 | PROVIDERS: ATTEND Otolaryngology | DX: R42 Dizziness and giddiness (principal) | CPT/HCPCS: 92537; 92540 ==

== ENCOUNTER 2020-07-03 07:59 | Day surgery (SDC) | payer BC ==
[2020-06-28 15:20] VITALS: BMI 19.9
[~2020-07-03 07:59] MED LIST changes: -LIDOCAINE 1% 20 ML VIAL (10MG/ML) FOR IV START INTRADERMA PRN
[2020-07-03 08:25] VITALS: RESP 16; TEMP 97.1
[2020-07-03] MEDS ORDERED: LIDOCAINE 1% (10MG/ML) FOR IV START INTRADERMA ONE (08:36)
[2020-07-03] MEDS ORDERED: GLUCAGON 1 MG/ML VIAL ONE (08:40)
[2020-07-03] MEDS ORDERED: PROPOFOL 10 MG/ML 20 ML VIAL IV ONE (08:40)
--- NOTE | 2020-07-03 09:15 | P.PCN ---
Date of Procedure: 07/03/20 Description of Procedure: BRIEF HISTORY: Patient is a 54-year-old female presenting for outpatient colonoscopy for history of colon polyps. Patient reports history of polyps in the past. Last colonoscopy 3 years ago. No change in bowel habits or family history of colon cancer. PROCEDURE PERFORMED: Colonoscopy with polypectomy. PREOPERATIVE DIAGNOSIS: History of colon polyps, last colonoscopy 3 years ago. ESTIMATED BLOOD LOSS: Minimal. IV sedation per Anesthesia. PROCEDURE: After informed consent was obtained, the patient, was brought into the endoscopy unit. IV sedation was administered by Anesthesia under continuous monitoring. Digital rectal examination was normal. Initially the Olympus CF-190 flexible video colonoscope was then inserted in the rectum, gradually advanced into the cecum without any difficulty. Careful examination was performed as the scope was gradually being withdrawn. Ileocecal valve and the appendiceal orifice were visualized and appeared normal. Prep was excellent. Mucosa of the cecum, ascending colon, transverse colon, descending colon, sigmoid colon, and rectum appeared normal. 2 flat polyps measuring 5 and 6 mm in size removed from the transverse colon with cold snare polypectomy. 4 mm ascending colon polyp removed with cold snare polypectomy. Pedunculated 5 mm sigmoid polyp removed with cold snare polypectomy. Retroflexion was performed in the rectum and no lesions were seen, low-grade internal hemorrhoids. The patient tolerated the procedure well. IMPRESSION: 4 polyps removed with cold snare polypectomy to from the transverse colon, one from the ascending colon and one from the sigmoid colon. Internal hemorrhoids. RECOMMENDATIONS: Findings of this examination were discussed with the patient and his family. Okay to resume diet. Okay to resume medications. Await pathology from polypectomies. Would recommend repeat colonoscopy in 3 years for high risk colon polyps.
[2020-07-03 09:36] VITALS: BP 112/70; PULSE 79
== END 2020-07-03 10:10 | disposition home or self-care (01) ==
LOC: ORWHC2ENDO 07:59
PROVIDERS: ATTEND Internal Medicine
DX: Z12.11 Encounter for screening for malignant neoplasm of colon (principal); D12.3 Benign neoplasm of transverse colon; D12.2 Benign neoplasm of ascending colon; K63.5 Polyp of colon; K64.8 Other hemorrhoids; K21.9 Gastro-esophageal reflux disease without esophagitis; Z86.010 Personal history of colon polyps; F17.210 Nicotine dependence, cigarettes, uncomplicated; Z79.82 Long term (current) use of aspirin; Z79.899 Other long term (current) drug therapy; Z98.890 Other specified postprocedural states; E78.5 Hyperlipidemia, unspecified
CPT/HCPCS: 88305; 45385; J1610; J2704

== ENCOUNTER 2022-09-29 09:51 | Observation (INO) | payer BC ==
[2022-09-29] MEDS ORDERED: ASPIRIN 81 MG PO STA (10:32)
[2022-09-29] MEDS ORDERED: NITROGLYCERIN OINT 1 INCH/GM PACKET TOPICAL STA (10:32)
[2022-09-29 11:08] LABS: Basophils % (A) 0 %; Eosinophils # (A) 0.1 k/uL (0-0.7); Eosinophils % (A) 1 %; HCT 44.2 % (39.0-53.0); HGB 15.8 gm/dL (13.0-17.5); Lymphocytes # (A) 2.5 k/uL (1.0-4.8); Lymphocytes % (A) 25 %; MCH 32.7 pg (25.0-35.0); MCHC 35.8 g/dL (31.0-37.0); MCV 91.5 fL (80.0-100.0); Mean Platelet Volume 9.6; Monocytes # (A) 0.7 k/uL (0-1.0); Monocytes % (A) 7 %; Neutrophils # (A) 6.6 k/uL (1.3-7.7); Neutrophils % (A) 66 %; Platelet Count 169 k/uL (150-450); RBC 4.83 m/uL (4.30-5.90)
--- NOTE | 2022-09-29 11:29 | ED ---
General Adult HPI - General Chief complaint: Chest Pain Stated complaint: chest pain Time Seen by Provider: 09/29/22 10:11 Source: patient, RN notes reviewed, old records reviewed Mode of arrival: ambulatory Limitations: no limitations - History of Present Illness Initial comments: This is a 57-year-old male who presents emergency department complaining of chest pain. Patient states it started about 5 AM. Patient states she's also had shortness of breath and a little lightheaded and had some nausea. Patient states the pain radiates to his back and jaw. Patient states the pain is still there now but it's a little bit better than was earlier. Patient states he has had a catheterization years ago and he told me at 75% blockage. Patient contin ues to smoke does not follow up with a regular basis and does not know if he has high cholesterol high blood pressure. Patient does deny having any family history of heart disease. Patient denies any shortness of breath while lying here but this morning when he had the pain more significantly he was mildly short of breath. Patient denies headache. Patient denies numbness weakness per patient denies abdominal pain patient denies any vomiting or diarrhea. Patient denies any recent fever chills or cough per patient denies any swelling to the legs worsened normal. Patient denies any calf tenderness. - Related Data Home Medications Medication Instructions Recorded Confirmed Balance Of Nature 1 dose PO DAILY 09/29/22 09/29/22 Cholecalciferol [Vitamin D3 (125 125 mcg PO DAILY 09/29/22 09/29/22 Mcg = 5000 Iu)] Cyanocobalamin (Vitamin B-12) 1,000 mcg PO DAILY 09/29/22 09/29/22 [Vitamin B-12] Ibuprofen [Motrin Ib] 400 mg PO Q6H PRN 09/29/22 09/29/22 Multivitamins, Thera [Multivitamin 1 tab PO DAILY 09/29/22 09/29/22 (formulary)] Omeprazole [PriLOSEC] 20 mg PO DAILY 09/29/22 09/29/22 Zinc Gluconate [Zinc] 50 mg PO DAILY 09/29/22 09/29/22 Allergies Allergy/AdvReac Type Severity Reaction Status Date / Time No Known Allergies Allergy Verified 09/29/22 12:42 Review of Systems ROS Statement: Those systems with pertinent positive or pertinent negative responses have been documented in the HPI. ROS Other: All systems not noted in ROS Statement are negative. Past Medical History Past Medical History: GERD/Reflux, Hyperlipidemia Additional Past Medical History / Comment(s): hx of blood in stool, hx of colon polyps History of Any Multi-Drug Resistant Organisms: None Reported Past Surgical History: Orthopedic Surgery Additional Past Surgical History / Comment(s): colonoscopy, LT WRIST SX, VASECTOMY, rt shoulder rotator cuff Past Anesthesia/Blood Transfusion Reactions: No Reported Reaction Past Psychological History: No Psychological Hx Reported Smoking Status: Current every day smoker - Past Family History Mother Family Medical History: No Reported History Father Family Medical History: Hypertension Additional Family Medical History / Comment(s): irregular heart beat. Brother(s) Family Medical History: Diabetes Mellitus Additional Family Medical History / Comment(s): Type 1 DM. General Exam - General Exam Comments Initial Comments: GENERAL: Patient is well-developed and well-nourished. Patient is nontoxic and well- hydrated and is in mild distress. ENT: Neck is soft and supple. No significant lymphadenopathy is noted. Oropharynx is clear. Moist mucous membranes. Neck has full range of motion without eliciting any pain. EYES: The sclera were anicteric and conjunctiva were pink and moist. Extraocular movements were intact and pupils were equal round and reactive to light. Eyelids were unremarkable. PULMONARY: Unlabored respirations. Good breath sounds bilaterally. No audible rales rhonchi or wheezing was noted. CARDIOVASCULAR: There is a regular rate and rhythm without any murmurs gallops or rubs. ABDOMEN: Soft and nontender with normal bowel sounds. SKIN: Skin is clear with no lesions or rashes and otherwise unremarkable. NEUROLOGIC: Patient is alert and oriented x3. Cranial nerves II through XII are grossly intact. Motor and sensory are also intact. Normal speech, volume and content. Symmetrical smile. MUSCULOSKELETAL: Normal extremities with adequate strength and full range of motion. LYMPHATICS: No significant lymphadenopathy is noted PSYCHIATRIC: Normal psychiatric evaluation. Limitations: no limitations Course Vital Signs 09/29/22 09/29/22 09/29/22 10:08 11:02 12:06 Temperature 98.2 F Pulse Rate 97 78 Pulse Rate [ 83 Sql Manager ] Respiratory 16 18 Rate Blood Pressure 137/87 131/82 O2 Sat by Pulse 98 97 Oximetry 09/29/22 13:53 Temperature Pulse Rate 68 Pulse Rate [ Sql Manager ] Respiratory 18 Rate Blood Pressure 119/86 O2 Sat by Pulse 97 Oximetry Medical Decision Making - Medical Decision Making EKG was interpreted by me. EKG shows a sinus rhythm with occasional PAC at a rate of 86 bpm NC interval is on a 66 dresses under 2 QT interval 360 QTC is 404. Patient's EKG shows no ST segment elevation or depression. CT of the brain was interpreted by me shows no acute abnormality. Chest x-ray was interviewed by me shows no acute abnormalities. I spoke with sounds physician's they agreed with the patient admitted the patient wrote admitting orders and I consult cardiology. - Lab Data Result diagrams: 09/29/22 10:46 09/29/22 11:13 Lab Results 09/29/22 09/29/22 09/29/22 Range/Units 10:46 10:46 11:13 WBC 10.0 (3.8-10.6) k/uL RBC 4.83 (4.30-5.90) m/uL Hgb 15.8 (13.0-17.5) gm/dL Hct 44.2 (39.0-53.0) % MCV 91.5 (80.0-100.0) fL MCH 32.7 (25.0-35.0) pg MCHC 35.8 (31.0-37.0) g/dL RDW 13.0 (11.5-15.5) % Plt Count 169 (150-450) k/uL MPV 9.6 Neutrophils % 66 % Lymphocytes % 25 % Monocytes % 7 % Eosinophils % 1 % Basophils % 0 % Neutrophils # 6.6 (1.3-7.7) k/uL Lymphocytes # 2.5 (1.0-4.8) k/uL Monocytes # 0.7 (0-1.0) k/uL Eosinophils # 0.1 (0-0.7) k/uL Basophils # 0.0 (0-0.2) k/uL PT 10.3 (9.0-12.0) sec INR 1.0 (<1.2) APTT 25.6 (22.0-30.0) sec D-Dimer 0.28 (<0.60) mg/L FEU Sodium (137-145) mmol/L Potassium (3.5-5.1) mmol/L Chloride (98-107) mmol/L Carbon Dioxide (22-30) mmol/L Anion Gap mmol/L BUN (9-20) mg/dL Creatinine (0.66-1.25) mg/dL Est GFR (CKD-EPI)AfAm (>60 ml/min/1.73 sqM) Est GFR (CKD-EPI)NonAf (>60 ml/min/1.73 sqM) Glucose (74-99) mg/dL POC Glucose (mg/dL) (70-110) mg/dL POC Glu Photographic Hand Developer ID Calcium (8.4-10.2) mg/dL Magnesium (1.6-2.3) mg/dL Total Bilirubin (0.2-1.3) mg/dL AST (17-59) U/L ALT (4-49) U/L Alkaline Phosphatase (38-126) U/L Troponin I (0.000-0.034) ng/mL NT-Pro-B Natriuret Pep 170 pg/mL Total Protein (6.3-8.2) g/dL Albumin (3.5-5.0) g/dL 09/29/22 09/29/22 09/29/22 Range/Units 11:13 11:13 11:59 WBC (3.8-10.6) k/uL RBC (4.30-5.90) m/uL Hgb (13.0-17.5) gm/dL Hct (39.0-53.0) % MCV (80.0-100.0) fL MCH (25.0-35.0) pg MCHC (31.0-37.0) g/dL RDW (11.5-15.5) % Plt Count (150-450) k/uL MPV Neutrophils % % Lymphocytes % % Monocytes % % Eosinophils % % Basophils % % Neutrophils # (1.3-7.7) k/uL Lymphocytes # (1.0-4.8) k/uL Monocytes # (0-1.0) k/uL Eosinophils # (0-0.7) k/uL Basophils # (0-0.2) k/uL PT (9.0-12.0) sec INR (<1.2) APTT (22.0-30.0) sec D-Dimer (<0.60) mg/L FEU Sodium 137 (137-145) mmol/L Potassium 4.4 (3.5-5.1) mmol/L Chloride 106 (98-107) mmol/L Carbon Dioxide 23 (22-30) mmol/L Anion Gap 8 mmol/L BUN 15 (9-20) mg/dL Creatinine 0.69 (0.66-1.25) mg/dL Est GFR (CKD-EPI)AfAm >90 (>60 ml/min/1.73 sqM) Est GFR (CKD-EPI)NonAf >90 (>60 ml/min/1.73 sqM) Glucose 99 (74-99) mg/dL POC Glucose (mg/dL) 107 (70-110) mg/dL POC Glu Photographic Hand Developer ID Amirah Hebert Calcium 9.9 (8.4-10.2) mg/dL Magnesium 1.8 (1.6-2.3) mg/dL Total Bilirubin 0.8 (0.2-1.3) mg/dL AST 35 (17-59) U/L ALT 46 (4-49) U/L Alkaline Phosphatase 79 (38-126) U/L Troponin I <0.012 (0.000-0.034) ng/mL NT-Pro-B Natriuret Pep pg/mL Total Protein 7.7 (6.3-8.2) g/dL Albumin 4.6 (3.5-5.0) g/dL Disposition Clinical Impression: Chest pain Disposition: ADMITTED IP TO THIS HOSP Referrals: Ce Wilson MD [Primary Care Provider] - 1-2 days Time of Disposition: 14:06
[2022-09-29 11:35] LABS: ALT 46 U/L (4-49); AST 35 U/L (17-59); African American GFR (CKD) >90 (>60 ml/min/1.73 sqM); Albumin 4.6 g/dL (3.5-5.0); Alkaline Phosphatase 79 U/L (38-126); Anion Gap 8 mmol/L; Blood Urea Nitrogen 15 mg/dL (9-20); Calcium 9.9 mg/dL (8.4-10.2); Carbon Dioxide 23 mmol/L (22-30); Chloride 106 mmol/L (98-107); Glucose 99 mg/dL (74-99); Magnesium 1.8 mg/dL (1.6-2.3); Non-African American GFR(CKD) >90 (>60 ml/min/1.73 sqM); Potassium 4.4 mmol/L (3.5-5.1); Sodium 137 mmol/L (137-145); Total Bilirubin 0.8 mg/dL (0.2-1.3); Total Protein 7.7 g/dL (6.3-8.2)
[2022-09-29 12:02] LABS: Glucose,Whole Blood 107 mg/dL (70-110)
[2022-09-29] MEDS ORDERED: ACETAMINOPHEN TAB 325 MG TAB PO STA (12:04)
--- NOTE | 2022-09-29 12:05 | XR ---
EXAMINATION TYPE: XR chest 2V DATE OF EXAM: 09/29/2022 COMPARISON: Prior chest x-ray December 26, 2018 HISTORY: Chest pain. TECHNIQUE: Frontal and lateral views of the chest are obtained. FINDINGS: Linear scarring and/or atelectasis lateral left lung base redemonstrated. There is no susp icious new focal air space opacity, pleural effusion, or pneumothorax seen. The cardiac silhouette s ize is stable and enlarged. The osseous structures remain intact. IMPRESSION: Linear scarring and/or atelectasis lateral left lung base redemonstrated. No new acute p rocess.
[2022-09-29 12:16] LABS: Partial Thromboplastin Time 25.6 sec (22.0-30.0); Prothrombin Time 10.3 sec (9.0-12.0)
--- NOTE | 2022-09-29 13:44 | CT ---
EXAMINATION TYPE: CT brain wo con DATE OF EXAM: 09/29/2022 COMPARISON: None INDICATION: Acute headache and dizziness. DLP: 1233.4 mGycm, Automated exposure control for dose reduction was used. CONTRAST: None CT of the brain is performed utilizing 3 mm thick sections through the posterior fossa and 3 mm thick sections through the remaining calvarium. Study is performed within 24 hours of arrival to the hosp [facility]. No abnormal hyperdensity is present to suggest an acute intracranial hemorrhage. No mass lesion is evident. Arachnoid cyst in the posterior fossa is likely present. No acute infarcts are evident. Minimal periventricular white matter hypodensities present, likely on the basis of chronic white matter ischemic changes. Ventricles and sulci are appropriate for the patient age. Paranasal sinuses and mastoid air cells within the [id number] are clear. IMPRESSIONS: 1. There may be some minimal chronic periventricular white matter ischemic type changes. 2. Arachnoid cyst posterior fossa. 3. No acute intracranial process radiographically apparent. Follow-up MRI can be performed as clinica lly indicated.
[2022-09-29] MEDS ORDERED: NITROGLYCERIN SL TABS 0.4 MG TAB SUBLINGUAL PRN (14:07)
[2022-09-29] MEDS ORDERED: NALOXONE 0.4 MG/ML 1 ML VIAL IV PRN (16:23)
[2022-09-29] MEDS ORDERED: KETOROLAC 15 MG/ML 1 ML VIAL IVP PRN (16:23)
--- NOTE | 2022-09-29 16:43 | P.HPIM ---
History of Present Illness H&P Date: 09/29/22 Patient is a 53-year-old male with past medical history of chronic tobacco abuse, dyslipidemia, CAD, GERD presents the ED for chest pain. Patient reports chest tightness that started at 5 AM this morning as he was getting ready for work. At the same time, he noticed thoracic scapular pain. Pain was associated with nausea, shortness of breath, lightheadedness and headache. Headache is described as throbbing. These symptoms were concerning which prompted the patient to come to the ED. Patient reports history of smoking 1-2 packs of cigarettes daily for many years. He reports lifting 30-50 pounds on a regular basis at work. He had a recent cardiac cath done in December 2018 which showed EF of 60% and 20% plaque of the LAD. He was previously on aspirin and Crestor which he stopped after it was not refilled. He denies any lower extremity edema, fever or chills, cough, palpitations, changes in urination or bowel habits. No changes in appetite or weight. He denies any numbness/weakness/tingling of the extremities. In the ED, his vital signs are stable. CBC was unremarkable. D-dimer was negative. INR was 1. CMP was negative. Troponin was less than 0.0122 with EKG showing sinus rhythm, T-wave inversions. CT head showed chronic periventricular white matter ischemic changes. Patient is admitted for chest pain, rule out acute coronary syndrome with cardiology consultation. Review of systems is performed and is negative except above. General: non toxic, no distress, appears at stated age Derm: warm, dry Head: atraumatic, normocephalic, symmetric Eyes: EOMI, no lid lag, anicteric sclera Mouth: no lip lesion, mucus membranes moist Cardiovascular: S1S2 reg, no murmur, tenderness to palpation over the left costochondral region Lungs: CTA bilateral, no rhonchi, no rales , no accessory muscle use Abdominal: soft, nontender to palpation, no guarding, no appreciable or ganomegaly Ext: no gross muscle atrophy, no edema, no contractures, nontender to palpation of the thoracic spine Neuro: no focal neuro deficits Psych: Alert, oriented, appropriate affect #Chest pain #Lightheadness, nausea, headache, scapular pain Patient is tenderness to palpation over the left costochondral region. However, he states his chest pain is different from the one he experienced this morning. Cardiac cath done in December 2018 which showed EF of 60% and 20% plaque of the LAD. D-Dimer negative, low concerns for PE or dissection. Trend Troponin/EKG to rule out ACS. Telemetry monitoring. Obtain Echocardiogram. Start aspirin 81 mg PO QD. Obtain lipid panel. Cardiology consultation. #Tobacco abuse Patient offered a nicotine patch. He is encoruaged to quit. #Dyslipidemia Obtain Lipid panel to assess for ASCVD risk. #GERD Restart Prilosec. DVT prophylaxis: Heparin Discussed with: Patient, ED physician Anticipated discharge: 1-[address]: Home A total of 30 minutes was spent on the care of this complex patient more than 50% of the time was spent in counseling and care coordination. Patient names his decision-maker if he can't make decisions for himself. Patient would like to be full code. Past Medical History Past Medical History: GERD/Reflux, Hyperlipidemia Additional Past Medical History / Comment(s): hx of blood in stool, hx of colon polyps History of Any Multi-Drug Resistant Organisms: None Reported Past Surgical History: Orthopedic Surgery Additional Past Surgical History / Comment(s): colonoscopy, LT WRIST SX, VASECTOMY, rt shoulder rotator cuff Past Anesthesia/Blood Transfusion Reactions: No Reported Reaction Past Psychological History: No Psychological Hx Reported Smoking Status: Current every day smoker Past Alcohol Use History: Occasional Additional Past Alcohol Use History / Comment(s): SMOKES 1 PPD SINCE AGE 13, Past Drug Use History: None Reported - Past Family History Mother Family Medical History: No Reported History Father Family Medical History: Hypertension Additional Family Medical History / Comment(s): irregular heart beat. Brother(s) Family Medical History: Diabetes Mellitus Additional Family Medical History / Comment(s): Type 1 DM. Medications and Allergies Home Medications Medication Instructions Recorded Confirmed Type Balance Of Nature 1 dose PO DAILY 09/29/22 09/29/22 History Cholecalciferol [Vitamin D3 (125 125 mcg PO DAILY 09/29/22 09/29/22 History Mcg = 5000 Iu)] Cyanocobalamin (Vitamin B-12) 1,000 mcg PO DAILY 09/29/22 09/29/22 History [Vitamin B-12] Ibuprofen [Motrin Ib] 400 mg PO Q6H PRN 09/29/22 09/29/22 History Multivitamins, Thera [Multivitamin 1 tab PO DAILY 09/29/22 09/29/22 History (formulary)] Omeprazole [PriLOSEC] 20 mg PO DAILY 09/29/22 09/29/22 History Zinc Gluconate [Zinc] 50 mg PO DAILY 09/29/22 09/29/22 History Allergies Allergy/AdvReac Type Severity Reaction Status Date / Time No Known Allergies Allergy Verified 09/29/22 12:42 Physical Exam Vitals: Vital Signs Temp Pulse Pulse Pulse Resp BP BP 09/29/22 15:30 98.0 F 82 16 118/72 09/29/22 14:00 97.9 F 82 16 124/74 09/29/22 13:53 68 18 119/86 09/29/22 12:06 78 18 131/82 09/29/22 11:02 83 09/29/22 10:08 98.2 F 97 16 137/87 Pulse Ox 09/29/22 15:30 98 09/29/22 14:00 96 09/29/22 13:53 97 09/29/22 12:06 97 09/29/22 11:02 09/29/22 10:08 98 Intake and Output 09/29/22 09/29/22 09/29/22 06:59 14:59 22:59 Other: Weight 113.852 kg 113.852 kg Results CBC & Chem 7: 09/29/22 10:46 09/29/22 11:13
[2022-09-29] MEDS: NITROGLYCERIN OINT 1 INCH/GM PACKET TOPICAL SCH ×2 (17:48→21:08)
[2022-09-29] MEDS: HYDROcodone/APAP 5-325MG 1 EACH TAB PO PRN (18:19)
[2022-09-29] MEDS: HEPARIN SODIUM,PORCINE/PF 5,000 UNIT/0.5 ML SYRINGE SQ SCH (21:07)
[2022-09-30 04:14] VITALS: RESP 18
[2022-09-30] MEDS: HYDROcodone/APAP 5-325MG 1 EACH TAB PO PRN ×2 (06:21→12:21)
[2022-09-30] MEDS ORDERED: PANTOPRAZOLE 40 MG TABLET PO SCH (07:30)
[2022-09-30 08:18] VITALS: BP 117/74; PULSE 75; TEMP 97.5
[2022-09-30] MEDS ORDERED: ASPIRIN 325 MG TAB PO SCH (09:00)
[2022-09-30] MEDS ORDERED: ASPIRIN 81 MG PO SCH (09:00)
[2022-09-30 09:10] LABS: Chol/HDL Ratio 8.42 Ratio; LDL Cholesterol,Calculated 105.6 mg/dL (0.0-131.0)
[2022-09-30] MEDS ORDERED: REGADENOSON 0.4 MG/5 ML SYRINGE IV PRN (10:00)
[2022-09-30] MEDS ORDERED: CAFFEINE CITRATE 60 MG/3 ML VIAL IV PRN (10:00)
[2022-09-30] MEDS ORDERED: AMINOPHYLLINE 500 MG/20 ML VIAL IV PRN (10:00)
--- NOTE | 2022-09-30 10:28 | P.CRDCN ---
History of Present Illness Consult date: 09/30/22 Consult reason: chest pain History of present illness: HISTORY OF PRESENT ILLNESS This is a 57-year-old male with past medical history of hyperlipidemia, he does not follow with [employer]. Patient developed chest tightness while he was getting dressed for work. He ended up driving himself to work and then back home and subsequently drove to the hospital. The pain was in the mid chest radiating to the back. He also experienced shortness of breath and nausea. He denies having sweats. He is complaining of a headache at this time. No chest pain. He is normally quite active at work but not at home. He does have history of smoking. He denies family medical history of coronary artery disease. Patient is not on any home cardiac medications. EKG sinus rhythm with Q waves in the inferior leads CBC, CMP within normal limits. D-dimer 0.28. Troponin negative 3. Pro BNP 170. Triglycerides 318, cholesterol 192, LDL 105, HDL 22 Chest x-ray reveals linear scarring and/or atelectasis. No acute process. CAT scan of the brain revealed chronic changes. Echocardiogram 12/2018 revealed EF of 55-60% with moderate concentric left ve ntricular hypertrophy, mild mitral regurgitation, mild tricuspid regurgitation Cardiac catheterization 12/[address] Holt revealed mild disease of the proximal LAD. Normal left ventricle size and systolic function REVIEW OF SYSTEMS At the time of my evaluation: Constitutional: No fever, no chills. No weakness, fatigue or lethargy. EENT: Reports headache. No dizziness. Lungs: No shortness of breath, cough, no sputum production. No wheezing. Cardiovascular: No chest pain, no lower extremity edema. No palpitations. No paroxysmal nocturnal dyspnea. No orthopnea. No lightheadedness or dizziness. No syncopal episodes. Abdominal: No abdominal pain. No nausea, vomiting. No diarrhea. No constipation. No bloody or tarry stools.. No loss of appetite. Genitourinary: No dysuria.. No urinary retention. Musculoskeletal: No myalgias. No muscle weakness, no gait dysfunction, no f requent falls. No back pain. No neck pain. Integumentary: No wounds, no lesions. No rash or pruritus. No unusual bruising. Neurologic: No aphasia. No facial droop. No change in mentation. No head injury. No headache. No paralysis. No paresthesia. Psychiatric: No depression. No anxiety. Endocrine: No abnormal blood sugars. PHYSICAL EXAMINATION Gen: This is a 57-year-old male. He is resting bed and appears to be comfortable. VS: Reviewed HEENT: Head is atraumatic, normocephalic. Pupils equal, round. Sclerae is anicteric. NECK: Supple. No JVD. No lymphadenopathy. No thyromegaly. LUNGS: Clear to auscultation. No wheezes or rhonchi. No intercostal retractions. HEART: Regular rate and rhythm. No murmur. ABDOMEN: Soft. Bowel sounds are present. No masses. No tenderness. EXTREMITIES: No pedal edema. No calf tenderness. NEUROLOGICAL: Patient is awake, alert and oriented x3. Cranial nerves 2 through 12 are grossly intact. ASSESSMENT Chest pain with normal troponins, acute coronary syndrome ruled out Hyperlipidemia Tobacco use and dependence PLAN Obtain Lexiscan stress test If stress test is within normal limits, patient is cleared from cardiology for discharge home and may follow-up in the office in one to 2 weeks. Thank you kindly for this consultation. Nurse practitioner note has been reviewed, I agree with documented findings and plan of care. Patient was seen and examined. Past Medical History Past Medical History: GERD/Reflux, Hyperlipidemia Additional Past Medical History / Comment(s): hx of blood in stool, hx of colon polyps History of Any Multi-Drug Resistant Organisms: None Reported Past Surgical History: Orthopedic Surgery Additional Past Surgical History / Comment(s): colonoscopy, LT WRIST SX, VASECTOMY, rt shoulder rotator cuff Past Anesthesia/Blood Transfusion Reactions: No Reported Reaction Past Psychological History: No Psychological Hx Reported Smoking Status: Current every day smoker Past Alcohol Use History: Occasional Additional Past Alcohol Use History / Comment(s): SMOKES 1 PPD SINCE AGE 13, Past Drug Use History: None Reported - Past Family History Mother Family Medical History: No Reported History Father Family Medical History: Hypertension Additional Family Medical History / Comment(s): irregular heart beat. Brother(s) Family Medical History: Diabetes Mellitus Additional Family Medical History / Comment(s): Type 1 DM. Medications and Allergies Home Medications Medication Instructions Recorded Confirmed Type Balance Of Nature 1 dose PO DAILY 09/29/22 09/29/22 History Cholecalciferol [Vitamin D3 (125 125 mcg PO DAILY 09/29/22 09/29/22 History Mcg = 5000 Iu)] Cyanocobalamin (Vitamin B-12) 1,000 mcg PO DAILY 09/29/22 09/29/22 History [Vitamin B-12] Ibuprofen [Motrin Ib] 400 mg PO Q6H PRN 09/29/22 09/29/22 History Multivitamins, Thera [Multivitamin 1 tab PO DAILY 09/29/22 09/29/22 History (formulary)] Omeprazole [PriLOSEC] 20 mg PO DAILY 09/29/22 09/29/22 History Zinc Gluconate [Zinc] 50 mg PO DAILY 09/29/22 09/29/22 History Allergies Allergy/AdvReac Type Severity Reaction Status Date / Time No Known Allergies Allergy Verified 09/29/22 12:42 Physical Exam Vitals: Vital Signs Temp Pulse Pulse Pulse Resp BP BP 09/30/22 07:30 97.5 F L 75 18 117/74 09/30/22 02:59 98.2 F 88 18 112/64 09/29/22 19:55 98.0 F 87 17 98/65 09/29/22 19:45 09/29/22 15:30 98.0 F 82 16 118/72 09/29/22 14:00 97.9 F 82 16 124/74 09/29/22 13:53 68 18 119/86 09/29/22 12:06 78 18 131/82 09/29/22 11:02 83 Pulse Ox 09/30/22 07:30 99 09/30/22 02:59 96 09/29/22 19:55 95 09/29/22 19:45 94 L 09/29/22 15:30 98 09/29/22 14:00 96 09/29/22 13:53 97 09/29/22 12:06 97 09/29/22 11:02 Intake and Output 09/29/22 09/30/22 09/30/22 22:59 06:59 14:59 Intake Total 118 Balance 118 Intake: Oral 118 Other: # Voids 2 1 Weight 113.852 kg Results 09/29/22 10:46 09/29/22 11:13 Cardiac Enzymes 09/29/22 09/29/22 09/29/22 Range/Units 11:13 11:13 15:19 AST 35 (17-59) U/L Troponin I <0.012 <0.012 (0.000-0.034) ng/mL 09/29/22 Range/Units 18:19 AST (17-59) U/L Troponin I <0.012 (0.000-0.034) ng/mL Coagulation 09/29/22 Range/Units 11:13 PT 10.3 (9.0-12.0) sec APTT 25.6 (22.0-30.0) sec Lipids 09/30/22 Range/Units 06:14 Triglycerides 318.00 H (0.00-149.00) mg/dL Cholesterol 192.00 (0.00-200.00) mg/dL HDL Cholesterol 22.80 L (40.00-60.00) mg/dL Cholesterol/HDL Ratio 8.42 Ratio CBC 09/29/22 Range/Units 10:46 WBC 10.0 (3.8-10.6) k/uL RBC 4.83 (4.30-5.90) m/uL Hgb 15.8 (13.0-17.5) gm/dL Hct 44.2 (39.0-53.0) % Plt Count 169 (150-450) k/uL Comprehensive Metabolic Panel 09/29/22 Range/Units 11:13 Sodium 137 (137-145) mmol/L Potassium 4.4 (3.5-5.1) mmol/L Chloride 106 (98-107) mmol/L Carbon Dioxide 23 (22-30) mmol/L BUN 15 (9-20) mg/dL Creatinine 0.69 (0.66-1.25) mg/dL Glucose 99 (74-99) mg/dL Calcium 9.9 (8.4-10.2) mg/dL AST 35 (17-59) U/L ALT 46 (4-49) U/L Alkaline Phosphatase 79 (38-126) U/L Total Protein 7.7 (6.3-8.2) g/dL Albumin 4.6 (3.5-5.0) g/dL Current Medications Generic Name Dose Route Start Last Admin Trade Name Freq PRN Reason Stop Dose Admin Hydrocodone Bitart/Acetaminophen 1 each 09/29/22 16:23 09/30/22 06:21 Hydrocodone/Apap 5-325mg 1 Each Tab PO 1 each Q4HR PRN Administration Moderate Pain (Scale 4 to 6) Aminophylline 100 mg 09/30/22 10:00 Aminophylline 500 Mg/20 Ml Vial IV 09/30/22 14:00 ONCE PRN Patient Response Aspirin 81 mg 09/30/22 09:00 Aspirin 81 Mg PO DAILY [facility] Caffeine Citrate 60 mg 09/30/22 10:00 Caffeine Citrate 60 Mg/3 Ml Vial IV 09/30/22 14:00 ONCE PRN Patient Response Heparin Sodium (Porcine) 5,000 unit 09/29/22 21:00 09/29/22 21:07 Heparin Sodium,Porcine/Pf 5,000 Unit/0.5 Ml Syringe SQ 5,000 unit Q12HR CHAD Administration Ketorolac Tromethamine 15 mg 09/29/22 16:23 Ketorolac 15 Mg/Ml 1 Ml Vial IVP 10/02/22 16:24 Q6HR PRN Moderate Pain (Scale 4 to 6) Naloxone HCl 0.2 mg 09/29/22 16:23 Naloxone 0.4 Mg/Ml 1 Ml Vial IV Q2M PRN Opioid Reversal Nitroglycerin 0.4 mg 09/29/22 14:07 Nitroglycerin Sl Tabs 0.4 Mg Tab SUBLINGUAL Q5M PRN Chest Pain Nitroglycerin 1 inch 09/29/22 18:00 09/29/22 21:08 Nitroglycerin Oint 1 Inch/Gm Packet TOPICAL Not Given Q6HR [facility] Pantoprazole Sodium 40 mg 09/30/22 07:30 09/30/22 06:18 Pantoprazole 40 Mg Tablet PO 40 mg [id number] [facility] Administration Regadenoson 0.4 mg 09/30/22 10:00 Regadenoson 0.4 Mg/5 Ml Syringe IV 09/30/22 14:00 ONCE PRN Per Protocol Intake and Output 09/29/22 09/30/22 09/30/22 22:59 06:59 14:59 Intake Total 118 Balance 118 Intake: Oral 118 Other: # Voids 2 1 Weight 113.852 kg 09/29/22 10:46 09/29/22 11:13
[2022-09-30] MEDS ORDERED: ATORVASTATIN 40 MG TAB PO SCH (10:45)
[2022-09-30] MEDS: NITROGLYCERIN OINT 1 INCH/GM PACKET TOPICAL SCH (12:22)
[2022-09-30] MEDS: HEPARIN SODIUM,PORCINE/PF 5,000 UNIT/0.5 ML SYRINGE SQ SCH (12:22)
--- NOTE | 2022-09-30 12:29 | CA ---
Lexiscan Nuclear Stress Test Report Name: Navdeep Pablo Exam Date: 09/30/2022 11:25 Exam Location: [facility] Ht (in): Wt (lb): BSA: Ordering Phys: Puja Parsons Referring Phys: Andi, Technologist: Lang Bullock Age: 57 Gender: M : 1965 Procedure CPT: Indications: Reflex order-Stress test ICD-10 Codes: Patient History: chest pain Medications: Meds past 24 hrs: Pretest Chest Pain: STRESS TEST Lexiscan Protocol Exercise Duration (min:sec): 02:[address] Depressions (mm): Angina Score: Polanco Score: Resting HR (bpm): 71 Peak HR (bpm): 100 Resting BP (mmHg): 141 / 81 Peak BP (mmHg): 122 / 74 MPHR: 162 Target HR: 138 % MPHR: 62 METS: 1.0 Total Dose: Peak Dose: Atropine: Double Product: 04515 BP Response: Stress Termination: Infusion complete Stress Symptoms: pressure in head Stress Summary: ECG ANALYSIS Resting ECG: Stress ECG: CONCLUSIONS None diagnostic electrocardiogram stress testing Please follow-up on the Cardiolite portion Dr. Nabil Medina MD (Electronically Signed) Final Date: 30 September 2022 12:28
--- NOTE | 2022-09-30 12:41 | NM ---
EXAMINATION TYPE: NM stress lexiscan cardiolite DATE OF EXAM: 09/30/2022 COMPARISON: NONE HISTORY: Chest pain TECHNIQUE: After the intravenous administration of 9.9 mCi Tc 99m Sestamibi - Cardiolite resting SPE CT images acquired 50 minutes post injection. The patient received 0.4mg Lexiscan, 24.4 mCi Tc 99m Sestamibi - Stress images obtained [address] injection FINDINGS: Review of stress and rest SPECT images demonstrates no distinct perfusion abnormality. Gated analysi s shows normal wall motion with an estimated left ventricular ejection fraction of 61 %. TID is calcu lated at 1.11 which is at the upper limits of normal. IMPRESSION: No scintigraphic evidence for reversible ischemia.
--- NOTE | 2022-09-30 13:31 | P.DS ---
Providers Date of admission: 09/29/22 14:07 Expected date of discharge: 09/30/22 Attending physician: Yudelka Escamilla MD Consults: 09/29/22 14:07 Consult Physician Urgent Consulting Provider: [facility] Consult Reason/Comments: Chest pain Do you want consulting provider notified?: Yes Primary care physician: [facility] Course: Patient is a 53-year-old male with past medical history of chronic tobacco abuse, dyslipidemia, CAD, GERD presents the ED for chest pain. Patient reports chest tightness that started at 5 AM this morning as he was getting ready for work. At the same time, he noticed thoracic scapular pain. Pain was associated with nausea, shortness of breath, lightheadedness and headache. Headache is described as throbbing. These symptoms were concerning which prompted the patient to come to the ED. Patient reports history of smoking 1-2 packs of cigarettes daily for many years. He reports lifting 30-50 pounds on a regular basis at work. He had a recent cardiac cath done in December 2018 which showed EF of 60% and 20% plaque of the LAD. He was previously on aspirin and Crestor which he stopped after it was not refilled. He denies any lower extremity edema, fever or chills, cough, palpitations, changes in urination or bowel habits. No changes in appetite or weight. He denies any numbness/weakness/tingling of the extremities. In the ED, his vital signs are stable. CBC was unremarkable. D- dimer was negative. INR was 1. CMP was negative. Troponin was less than 0.0122 with EKG showing sinus rhythm, T-wave inversions. CT head showed chronic periventricular white matter ischemic changes. Patient is admitted for chest pain, rule out acute coronary syndrome with cardiology consultation. Troponins were trended and ACS was ruled out. Cardiology was consulted and recommended a stress test. Stress test was negative. Lipid panel showed triglyceride of 318, total cholesterol 192, LDL 105 and HDL of 22.8. Patient was cleared for discharge from cardiology standpoint. Patient was seen and examined after his stress test. He reports complete resolution of his chest pain. He reports a headache associated with caffeine withdrawal. Pertinent studies include chest x-ray, stress test General: non toxic, no distress, appears at stated age Derm: warm, dry Head: atraumatic, normocephalic, symmetric Eyes: EOMI, no lid lag, anicteric sclera Mouth: no lip lesion, mucus membranes moist Cardiovascular: S1S2 reg, no murmur, tenderness to palpation over the left costochondral region Lungs: CTA bilateral, no rhonchi, no rales , no accessory muscle use Ext: no gross muscle atrophy, no edema, no contractures Neuro: no focal neuro deficits Psych: Alert, oriented, appropriate affect Discharge diagnosis: #Chest pain #Lightheadness, nausea, headache, scapular pain #Tobacco abuse #Dyslipidemia #GERD Patient will be discharged home with the following instructions: Diet: Cardiac Follow up with PCP within 1-2 days of discharge. Take all medications as advised. Come back to the ED for worsening chest pain, shortness of breath, palpitations or lightheadedness. Patient Condition at Discharge: Stable Plan - Discharge Summary New Discharge Prescriptions: New Atorvastatin [Lipitor] 40 mg PO DAILY #30 tab Aspirin 81 mg PO DAILY #30 tab traMADol HCl [Ultram] 50 mg PO Q4HR PRN 3 Days #18 tab PRN Reason: Pain Continue Zinc Gluconate [Zinc] 50 mg PO DAILY Omeprazole [PriLOSEC] 20 mg PO DAILY Multivitamins, Thera [Multivitamin (formulary)] 1 tab PO DAILY Cholecalciferol [Vitamin D3 (125 Mcg = 5000 Iu)] 125 mcg PO DAILY Balance Of Nature 1 dose PO DAILY Ibuprofen [Motrin Ib] 400 mg PO Q6H PRN PRN Reason: Pain Or Fever > 100.5 Cyanocobalamin (Vitamin B-12) [Vitamin B-12] 1,000 mcg PO DAILY Discharge Medication List Balance Of Nature 1 dose PO DAILY 09/29/22 [History] Cholecalciferol [Vitamin D3 (125 Mcg = 5000 Iu)] 125 mcg PO DAILY 09/29/22 [History] Cyanocobalamin (Vitamin B-12) [Vitamin B-12] 1,000 mcg PO DAILY 09/29/22 [History] Ibuprofen [Motrin Ib] 400 mg PO Q6H PRN 09/29/22 [History] Multivitamins, Thera [Multivitamin (formulary)] 1 tab PO DAILY 09/29/22 [History] Omeprazole [PriLOSEC] 20 mg PO DAILY 09/29/22 [History] Zinc Gluconate [Zinc] 50 mg PO DAILY 09/29/22 [History] Aspirin 81 mg PO DAILY #30 tab 09/30/22 [Rx] Atorvastatin [Lipitor] 40 mg PO DAILY #30 tab 09/30/22 [Rx] traMADol HCl [Ultram] 50 mg PO Q4HR PRN 3 Days #18 tab 09/30/22 [Rx] Follow up Appointment(s)/Referral(s): Ce Wilson MD [Primary Care Provider] - 1-2 days Activity/Diet/Wound Care/Special Instructions: Diet: Cardiac Follow up with PCP within 1-2 days of discharge. Take all medications as advised. Come back to the ED for worsening chest pain, shortness of breath, palpitations or lightheadedness. Discharge Disposition: HOME SELF-CARE
== END 2022-09-30 13:06 | disposition home or self-care (01) ==
LOC: EC 09:51 → 6NMEDSUR 14:07
PROVIDERS: ADMIT Family Medicine; ATTEND Family Medicine
DX: R07.89 Other chest pain (principal); R42 Dizziness and giddiness; R11.0 Nausea; R06.02 Shortness of breath; F15.93 Other stimulant use, unspecified with withdrawal; R51.9 Headache, unspecified; M25.519 Pain in unspecified shoulder; I08.1 Rheumatic disorders of both mitral and tricuspid valves; Z91.14 Patient's other noncompliance with medication regimen; I25.10 Atherosclerotic heart disease of native coronary artery without angina pectoris; K21.9 Gastro-esophageal reflux disease without esophagitis; E78.5 Hyperlipidemia, unspecified; F17.210 Nicotine dependence, cigarettes, uncomplicated; Z79.899 Other long term (current) drug therapy; Z86.010 Personal history of colon polyps; Z87.19 Personal history of other diseases of the digestive system; Z98.52 Vasectomy status; Z98.890 Other specified postprocedural states; Z83.3 Family history of diabetes mellitus; Z82.49 Family history of ischemic heart disease and other diseases of the circulatory system; Z71.6 Tobacco abuse counseling
CPT/HCPCS: 96372 ×2; 99285; 36415; 94760; 93005; 93017; 85379; 83880; 80061; 80053; 83735; 84484; 85025; 85610; 85730; 71046; 70450; 78452; G0378 ×2; A9500; J2785; J1644 ×2

== ENCOUNTER → 2023-01-30 | Outpatient (CLI) | payer BC ==
--- NOTE | 2023-01-30 18:48 | CT ---
EXAMINATION TYPE: CT chest wo con DATE OF EXAM: 01/30/2023 COMPARISON: CT angiogram chest 12/18/2017 HISTORY: Widened mediastinum CT DLP: 487.[address] of the chest was performed with lung and mediastinal window settings submitted. The la ck of contrast limits evaluation of the vascular, mediastinal and parenchymal structures including th e upper abdomen. LUNGS: The lungs are clear and free of infiltrate. No atelectasis. No pulmonary nodule or mass is de tected. No pleural effusion. No CT evidence of interstitial lung disease. MEDIASTINUM/RUTH: Thoracic aorta is of normal caliber with limited evaluation given lack of contrast . The heart is not enlarged. No evidence for mediastinal mass. No lymph nodes greater than 1cm. UPPER ABDOMEN: No significant abnormality is seen. OTHER: No significant other abnormality. IMPRESSION: 1. No discrete abnormality of the mediastinum or lungs.
== END | disposition home or self-care (01) ==
LOC: RADCTMAIN 18:10
PROVIDERS: ATTEND Family Medicine
DX: J98.59 Other diseases of mediastinum, not elsewhere classified (principal)
CPT/HCPCS: 71250

== ENCOUNTER → 2023-10-08 | Outpatient (CLI) | payer OTHER ==
--- NOTE | 2023-10-08 14:55 | XR ---
EXAMINATION TYPE: XR wrist complete LT, XR hand complete LT DATE OF EXAM: 10/08/2023 2:46 PM CLINICAL INDICATION:Male, 58 years old with history of S43.401A; COMPARISON: None TECHNIQUE: XR wrist complete LT, XR hand complete LT; examined in the Frontal, navicular, lateral, a nd oblique. FINDINGS/IMPRESSION: Abnormal appearance of the first row of the carpals of the wrist. Findings likely chronic given the m etacarpals appearance with displaced posteriorly. Correlate for history of prior injury. Correlate fo r pain. No obvious displaced acute fracture visualized.
--- NOTE | 2023-10-08 14:55 | XR ---
EXAMINATION TYPE: XR knee complete 3 views RT, XR tibia fibula 2 views RT DATE OF EXAM: 10/08/2023 COMPARISON: NONE HISTORY: 58-year-old male S43.401A, trip and fall, pain FINDINGS: Right knee: Degenerative spurring at the medial compartment. Some joint space narrowing is also present here. Mor e moderate degenerative change patellofemoral compartment with trace knee joint effusion but with pro minent anterior soft tissue swelling. Tibia/fibula: Mild generalized soft tissue swelling especially along the distal half. No acute fracture, subluxatio n, dislocation. IMPRESSION: 1. Right knee: Prominent anterior soft tissue swelling likely reflects contusion. Trace joint effusio n likely reactive to the patient's injury. Degenerative change patellofemoral compartment and medial compartments. No acute osseous abnormality seen. If pain persists or concern for internal derangement , MRI can be performed. 2. Tibia/fibula: Some generalized subcutaneous soft tissue swelling of the distal half of the leg.
--- NOTE | 2023-10-08 14:56 | XR ---
EXAMINATION TYPE: XR shoulder complete RT DATE OF EXAM: 10/08/2023 2:46 PM CLINICAL INDICATION:Male, 58 years old with history of S43.401A; COMPARISON: None TECHNIQUE: XR shoulder complete RT; shoulder was examined in AP, internally rotated and scapular Y p rojections. FINDINGS: No evidence of acute osseous pathology, joint dislocation, or soft tissue swelling. The remaining po rtions of the visualized chest are unremarkable. IMPRESSION: No acute osseous pathology.
== END | disposition home or self-care (01) ==
LOC: RADXRMAIN 14:07
PROVIDERS: ATTEND Emergency Medicine
DX: S43.401A Unspecified sprain of right shoulder joint, initial encounter (principal); S63.502A Unspecified sprain of left wrist, initial encounter; S60.221A Contusion of right hand, initial encounter; S80.01XA Contusion of right knee, initial encounter; S80.11XA Contusion of right lower leg, initial encounter

== ENCOUNTER → 2023-10-17 | Outpatient (CLI) | payer OTHER ==
--- NOTE | 2023-10-17 13:42 | XR ---
EXAMINATION TYPE: XR shoulder complete 3 views RT DATE OF EXAM: 10/17/2023 Comparison: 10/08/2023 Clinical History: 58-year-old male rotator cuff surgery 3-4 years ago, slip and fall, pain, [id number] Findings: Mild/moderate degenerative change AC joint. Some bony irregularity of the greater tuberosity is noted . No acute fracture, subluxation, or dislocation. Impression: Bony changes at the greater tuberosity suggesting chronic rotator cuff tendinopathy. Mild to moderate AC joint OA. No acute osseous abnormality seen. If symptoms persist or concern for rotator cuff re-t ear, MRI can be performed.
== END | disposition home or self-care (01) ==
LOC: RADXRMAIN 12:58
PROVIDERS: ATTEND Emergency Medicine
DX: S43.401D Unspecified sprain of right shoulder joint, subsequent encounter (principal); M19.011 Primary osteoarthritis, right shoulder

== ENCOUNTER → 2023-11-02 | Outpatient (CLI) | payer BC ==
[2023-11-03 02:37] LABS: ALT 36 U/L (10-49); AST 26 U/L (14-35); Albumin 4.9 g/dL (3.8-4.9); Albumin/Globulin Ratio 1.75 Ratio (1.60-3.17); Alkaline Phosphatase 93 U/L (41-126); Blood Urea Nitrogen 17.7 mg/dL (9.0-27.0); Calcium 10.7 mg/dL (8.7-10.3); Carbon Dioxide 23.6 mmol/L (21.6-31.8); Chloride 100 mmol/L (96-109); Chol/HDL Ratio 4.85 Ratio; Globulin 2.8 g/dL (1.6-3.3); Glucose 88 mg/dL (70-110); LDL Cholesterol,Calculated 78.6 mg/dL (0.0-131.0); Potassium 4.1 mmol/L (3.5-5.5); Sodium 137 mmol/L (135-145); Total Bilirubin 0.6 mg/dL (0.3-1.2); Total Protein 7.7 g/dL (6.2-8.2)
[2023-11-03 02:48] LABS: Basophils # (A) 0.06 X 10*3/uL (0.00-0.10); Basophils % (A) 0.4 %; Eosinophils % (A) 1.5 %; HGB 15.9 g/dL (13.0-17.0); Lymphocytes % (A) 25.4 %; MCH 31.5 pg (27.0-32.0); MCHC 33.8 g/dL (32.0-37.0); MCV 93.1 FL (80.0-97.0); Mean Platelet Volume 9.1 FL (9.5-12.2); Monocytes # (A) 1.31 X 10*3/uL (0.20-1.00); Monocytes % (A) 9.8 %; NRBC Per 100 WBC 0 X 10*3/uL (0.00-0.01); Neutrophils # (A) 8.37 X 10*3/uL (1.80-7.70); Neutrophils % (A) 62.6 %; Platelet Count 493 X 10*3/uL (140-440); RBC 5.05 X 10*6/uL (4.40-5.60); RDW 13.8 % (11.5-14.5); WBC 13.38 X 10*3/uL (4.50-10.00)
== END | disposition home or self-care (01) ==
LOC: LABWHC1 15:52
PROVIDERS: ATTEND Family Medicine
DX: K21.9 Gastro-esophageal reflux disease without esophagitis (principal); E78.5 Hyperlipidemia, unspecified
CPT/HCPCS: 36415; 80053; 80061; 85025

== ENCOUNTER → 2023-11-09 | Outpatient (CLI) | payer BC ==
[2023-11-10 03:29] LABS: Basophils # (A) 0.05 X 10*3/uL (0.00-0.10); Basophils % (A) 0.4 %; Eosinophils # (A) 0.25 X 10*3/uL (0.04-0.35); Eosinophils % (A) 1.8 %; HCT 41.4 % (39.6-50.0); HGB 13.9 g/dL (13.0-17.0); Lymphocytes # (A) 3.37 X 10*3/uL (0.90-5.00); Lymphocytes % (A) 23.7 %; MCH 31.8 pg (27.0-32.0); MCHC 33.6 g/dL (32.0-37.0); MCV 94.7 FL (80.0-97.0); Mean Platelet Volume 9.7 FL (9.5-12.2); Monocytes # (A) 1.34 X 10*3/uL (0.20-1.00); Monocytes % (A) 9.4 %; NRBC Per 100 WBC 0 X 10*3/uL (0.00-0.01); Neutrophils # (A) 9.13 X 10*3/uL (1.80-7.70); Neutrophils % (A) 64.3 %; Platelet Count 439 X 10*3/uL (140-440); RBC 4.37 X 10*6/uL (4.40-5.60); RDW 14.1 % (11.5-14.5)
== END | disposition home or self-care (01) ==
LOC: LABWHC1 15:17
PROVIDERS: ATTEND Family Medicine
DX: E83.52 Hypercalcemia (principal); R79.89 Other specified abnormal findings of blood chemistry
CPT/HCPCS: 36415; 82310; 85025

== ENCOUNTER → 2023-11-16 | Outpatient (CLI) | payer BC ==
[2023-11-17 02:34] LABS: Basophils # (A) 0.06 X 10*3/uL (0.00-0.10); Basophils % (A) 0.4 %; Eosinophils # (A) 0.22 X 10*3/uL (0.04-0.35); Eosinophils % (A) 1.6 %; HCT 41.3 % (39.6-50.0); HGB 13.8 g/dL (13.0-17.0); Lymphocytes # (A) 3.24 X 10*3/uL (0.90-5.00); Lymphocytes % (A) 23.2 %; MCH 31.4 pg (27.0-32.0); MCHC 33.4 g/dL (32.0-37.0); MCV 93.9 FL (80.0-97.0); Mean Platelet Volume 9.6 FL (9.5-12.2); Monocytes % (A) 8.6 %; NRBC Per 100 WBC 0 X 10*3/uL (0.00-0.01); Neutrophils # (A) 9.21 X 10*3/uL (1.80-7.70); Neutrophils % (A) 65.8 %; Platelet Count 431 X 10*3/uL (140-440); RDW 14.1 % (11.5-14.5); WBC 13.99 X 10*3/uL (4.50-10.00)
== END | disposition home or self-care (01) ==
LOC: LABWHC1 15:20
PROVIDERS: ATTEND Family Medicine
DX: D72.829 Elevated white blood cell count, unspecified (principal)
CPT/HCPCS: 36415; 85025

== ENCOUNTER → 2024-02-26 | Outpatient (CLI) | payer BC ==
[2024-02-26 10:21] LABS: Basophils # (A) 0.04 X 10*3/uL (0.00-0.10); Basophils % (A) 0.4 %; Eosinophils # (A) 0.21 X 10*3/uL (0.04-0.35); Eosinophils % (A) 2.2 %; HCT 45.4 % (39.6-50.0); HGB 15.3 g/dL (13.0-17.0); Lymphocytes # (A) 2.36 X 10*3/uL (0.90-5.00); Lymphocytes % (A) 24.3 %; MCH 31.9 pg (27.0-32.0); MCHC 33.7 g/dL (32.0-37.0); MCV 94.8 FL (80.0-97.0); Mean Platelet Volume 8.5 FL (9.5-12.2); Monocytes # (A) 1.24 X 10*3/uL (0.20-1.00); Monocytes % (A) 12.8 %; NRBC Per 100 WBC 0 X 10*3/uL (0.00-0.01); Neutrophils # (A) 5.81 X 10*3/uL (1.80-7.70); Neutrophils % (A) 59.9 %; Platelet Count 483 X 10*3/uL (140-440); RBC 4.79 X 10*6/uL (4.40-5.60); RDW 13.9 % (11.5-14.5)
[2024-02-26 10:58] LABS: ALT 29 U/L (10-49); AST 20 U/L (14-35); Albumin 4.8 g/dL (3.8-4.9); Albumin/Globulin Ratio 1.85 Ratio (1.60-3.17); Alkaline Phosphatase 88 U/L (41-126); Amylase 52 U/L (23-121); BUN/Creat Ratio 19.22 Ratio (12.00-20.00); Blood Urea Nitrogen 17.3 mg/dL (9.0-27.0); Calcium 10.1 mg/dL (8.7-10.3); Chloride 104 mmol/L (96-109); Chol/HDL Ratio 5.32 Ratio; Globulin 2.6 g/dL (1.6-3.3); Glucose 127 mg/dL (70-110); LDL Cholesterol,Calculated 79.2 mg/dL (0.0-131.0); Lipase 22 U/L (14-60); Potassium 4.9 mmol/L (3.5-5.5); Prostate Specific Antigen 0.86 ng/mL (0.000-3.500); Sodium 141 mmol/L (135-145); Total Bilirubin 0.3 mg/dL (0.3-1.2); Total Protein 7.4 g/dL (6.2-8.2)
== END | disposition home or self-care (01) ==
LOC: LABWHC1 07:29
PROVIDERS: ATTEND Family Medicine
DX: Z00.00 Encounter for general adult medical examination without abnormal findings (principal); R10.11 Right upper quadrant pain
CPT/HCPCS: 36415; 80053; 80061; 82150; 82306; 83690; 84153; 85025

== ENCOUNTER → 2024-02-26 | Outpatient (CLI) | payer BC ==
--- NOTE | 2024-02-27 03:35 | US ---
EXAMINATION TYPE: US abdomen complete DATE OF EXAM: 02/26/2024 COMPARISON: NONE CLINICAL INDICATION: Male, 58 years old with history of R10.11 RIGHT UPPER QUADRANT PAIN; no pain per patient but order states RUQ pain TECHNIQUE: Multiple sonographic images of the abdomen are obtained. FINDINGS: EXAM MEASUREMENTS: Liver Length: 19.1 cm Gallbladder Wall: 0.2 cm CBD: 0.6 cm Spleen: 10.0 cm Right Kidney: 11.7 x 5.5 x 5.4 cm Left Kidney: 11.0 x 4.3 x 5.2 cm DIRECTOR OF PROGRAMMING NOTES: large habitus limits exam Pancreas: portions seen appear wnl Liver: enlarged Gallbladder: wnl Evidence for sonographic Herndon's sign: no CBD: wnl Spleen: wnl Right Kidney: wnl Left Kidney: wnl Upper IVC: wnl Abd Aorta: wnl The liver is homogenous and enlarged without focal lesion identified. The intrahepatic portion of th e IVC and proximal abdominal aorta are within normal limits. There is no evidence of cholelithiasis. Common bile duct is unremarkable. The visualized portions of the pancreas are homogenous. The spl een is unremarkable. Kidneys are symmetric and free of hydronephrosis. No renal lesions are seen. IMPRESSION: 1. No ultrasound evidence for an acute process. 2. Hepatomegaly.
== END | disposition home or self-care (01) ==
LOC: RADUSWWP 06:59
PROVIDERS: ATTEND Family Medicine
DX: R16.0 Hepatomegaly, not elsewhere classified (principal)
CPT/HCPCS: 76700

== ENCOUNTER 2024-05-18 12:32 | Emergency (ER) | payer BC ==
[2024-05-18] MEDS ORDERED: ACETAMINOPHEN TAB 325 MG TAB ONE (16:32)
[2024-05-18] MEDS ORDERED: MORPHINE SULFATE 2 MG/ML SYRINGE ONE ×2 (17:22→19:24)
--- NOTE | 2024-06-16 17:43 | XR ---
Site ID synapse default Patient Navdeep Pablo R ID [id number] Age/Gender: 58Y, M Order # N/A Procedure CXR 2V Date 05/18/2024 3:22:57 PM EXAMINATION TYPE: Chest X-ray 2 Views DATE OF EXAM: 06/04/2024 6:57 PM COMPARISON: Chest radiographs from 09/29/2022, CT chest 01/30/2023 TECHNIQUE: Chest X-ray 2 Views Frontal and lateral views of the chest. Delayed interpretation due to institution cyber attack. CLINICAL INDICATION: Male, 58 year old with history of chest pain and headache; FINDINGS: Lungs/Pleura: There is no evidence of pleural effusion, focal consolidation, or pneumothorax. Pulmonary vascularity: Unremarkable. Heart/mediastinum: Cardiomediastinal silhouette is unremarkable. Musculoskeletal: No acute osseous pathology. Moderate multilevel degenerative disc disease. IMPRESSION: No acute cardiopulmonary disease/process.
--- NOTE | 2024-06-17 13:40 | CT ---
EXAM: CT head without contrast. CT cervical spine without contrast. DATE OF EXAM: 05/18/24 INDICATION: Patient age:CARLA ZAVALA : 1965 Reason for study: Dizziness and headache COMPARISON: None, please note PACS downtime occurred during the radiologist interpretation of these i mages with limited priors/reports. TECHNIQUE: Multiple axial CT images of the brain were obtained without IV contrast. Axial CT images from the skull base to the inferior aspect of T2 we obtained without intravenous cont rast. Coronal and sagittal reformatted images were also reviewed. One or more CT dose reduction strategies were utilized during this examination. Total DLP administered was 1251 mGycm . FINDINGS: CT BRAIN: Extra-axial spaces: No abnormal extra-axial fluid collections. Megacisterna magna Ventricular system: Within normal limits Cerebral parenchyma: No acute intraparenchymal hemorrhage or mass effect. The sanches-white junction is well differentiated. Cerebellum: Unremarkable. Mass effect: No evidence of midline shift. Intracranial vasculature: Atherosclerotic calcifications of the intracranial vessels. Soft tissues: Normal. Calvarium/osseous structures: No depressed skull fracture. Paranasal sinuses and mastoid air cells: Clear. Visualized orbits: Orbital contents are intact. CT CERVICAL SPINE: Fracture: None. Osseous structures: Multilevel degenerative disc disease changes with endplate spurring and disc oste ophyte complex's. Vertebral alignment: Within normal limits. Spinal canal/Neural Foramina: No evidence of significant spinal canal narrowing. No evidence of signi ficant neural foramina narrowing. Neck soft tissues: Prevertebral soft tissues are within normal limits. Other: The airway is patent. The lung apices are clear. IMPRESSION: 1. No acute intracranial process. 2. No evidence of cervical spine fracture. 3. Mild multilevel degenerative disc disease.
--- NOTE | 2024-06-17 13:40 | CT ---
CT angiogram head and neck. DATE OF EXAM: 05/18/24 INDICATION: Patient age:CARLA ZAVALA : 1965 Reason for study: Dizziness and headache COMPARISON: None, please note PACS downtime occurred during the radiologist interpretation of these i mages with limited priors/reports. TECHNIQUE: Axially acquired helical CT angiogram of the head was obtained with contrast utilizing 65 cc of Isovu e-370 administered intravenously. Axial images are supplemented with 3D reconstructions which were po st-processed at an independent workstation. Axially acquired helical CT Angiogram of the Neck was obtained with and without contrast utilizing 65 mL of Isovue-370 administered intravenously. Axial images are supplemented with coronal and sagittal MIP reconstructions. 3D reconstructions were also performed and were post-processed at an [employer] workstation. Estimated carotid stenosis was calculated using the NASCET criteria. One or more CT dose reduction strategies were utilized during this examination. DLP 617 mGycm. FINDINGS: No evidence of acute intracranial hemorrhage, mass effect, or midline shift. The ventricles, sulci, a nd cisterns are unremarkable. Vertebral arteries: The vertebral arteries are patent. The left vertebral artery is dominant. The rachel earance of the right vertebral artery. Basilar artery: The basilar artery is intact. The basilar artery bifurcation is normal. Internal Carotid arteries: The cervical, petrous, cavernous and supraclinoid segments are normal. LACIE: Patent with no evidence of aneurysm. ACOM: Present without evidence of aneurysm. MCA: Patent with no evidence of aneurysm. AUTO DISMANTLER: Patent with no evidence of aneurysm. PCOM: Hypoplastic bilaterally. RIGHT CAROTID SYSTEM: The common carotid artery is patent. Carotid bifurcation demonstrates no hemody namically significant stenosis. Internal carotid artery is patent. LEFT CAROTID SYSTEM: The common carotid artery is patent. Carotid bifurcation demonstrates no hemody namically significant stenosis. Internal carotid artery is patent. The origins of the great vessels and vertebral arteries appear unremarkable. The left vertebral arter y, and there is diminutive appearance of the right vertebral artery extending from its origin into th e skull. IMPRESSIONS: 1. No evidence for dissection or aneurysm of the vertebral or carotid arteries. 2. No significant stenosis involving the carotid bifurcations. 3. No evidence of high-grade stenosis or intracranial aneurysm. 4. Diminutive right vertebral artery extends from its origin into the confluence with the left verte bral artery.
== END 2024-05-18 21:20 | disposition home or self-care (01) ==
LOC: EC 12:32
DX: R51.9 Headache, unspecified (principal); R42 Dizziness and giddiness; R07.9 Chest pain, unspecified; Z53.29 Procedure and treatment not carried out because of patient's decision for other reasons
CPT/HCPCS: 93005; 80053; 83735; 84484; 85025; 85610; 85730; 71046; 72125; 70496; 70450; 70498; 99284; 96374; J2270; Q9967

== ENCOUNTER 2024-08-23 15:03 | Observation (INO) | payer BC ==
[2024-08-23 15:46] LABS: Basophils # (A) 0.1 k/uL (0-0.2); Basophils % (A) 1 %; Eosinophils # (A) 0.3 k/uL (0-0.7); Eosinophils % (A) 2 %; HGB 15.5 gm/dL (13.0-17.5); Lymphocytes # (A) 3.2 k/uL (1.0-4.8); Lymphocytes % (A) 27 %; MCH 32.3 pg (25.0-35.0); MCHC 33.7 g/dL (31.0-37.0); Mean Platelet Volume 6.6; Monocytes # (A) 0.9 k/uL (0-1.0); Monocytes % (A) 8 %; Neutrophils # (A) 6.9 k/uL (1.3-7.7); Neutrophils % (A) 60 %; Platelet Count 432 k/uL (150-450); RBC 4.79 m/uL (4.30-5.90); RDW 13.1 % (11.5-15.5); WBC 11.5 k/uL (3.8-10.6)
--- NOTE | 2024-08-23 15:54 | ED ---
Abdominal Pain HPI - General Chief Complaint: Abdominal Pain Stated Complaint: abd pain Time Seen by Provider: 08/23/24 15:49 Source: patient, RN notes reviewed, old records reviewed Mode of arrival: ambulatory Limitations: no limitations - History of Present Illness Initial Comments: This is a 59-year-old male to the ER for evaluation for significant abdominal pain history of abdominal hernia undiagnosed, patient states that he has no abdominal surgeries but has pain for a few days to the point of now being intractable he cannot sleep he cannot eat he cannot drink and has not been able to eat or drink for a few days now. MD Complaint: abdominal pain -: days(s) Location: diffuse, periumbilical, epigastric, suprapubic Radiation: epigastric, L flank Migration to: periumbilical Severity: severe Severity scale (1-10): 10 Quality: cramping, aching, fullness Consistency: constant Improves With: nothing Worsens With: nothing Associated Symptoms: nausea Treatments Prior to Arrival: other (0) - Related Data Home Medications Medication Instructions Recorded Confirmed Cyanocobalamin (Vitamin B-12) 1,000 mcg PO DAILY 09/29/22 08/23/24 [Vitamin B-12] Multivitamins, Thera [Multivitamin 1 tab PO DAILY 09/29/22 08/23/24 (formulary)] Nicotine 21Mg/24Hr Patch [Habitrol] 1 patch TRANSDERM DAILY 08/23/24 08/23/24 Omeprazole Magnesium [PriLOSEC OTC] 20 mg PO DAILY 08/23/24 08/23/24 Ondansetron Odt [Zofran Odt] 4 mg PO Q8HR PRN 08/23/24 08/23/24 Sertraline [Zoloft] 100 mg PO DAILY 08/23/24 08/23/24 metFORMIN HCL ER [Glucophage XR] 500 mg PO DAILY 08/23/24 08/23/24 Allergies Allergy/AdvReac Type Severity Reaction Status Date / Time No Known Allergies Allergy Verified 08/23/24 18:33 Review of Systems ROS Statement: Those systems with pertinent positive or pertinent negative responses have been documented in the HPI. ROS Other: All systems not noted in ROS Statement are negative. Past Medical History Past Medical History: GERD/Reflux, Hyperlipidemia Additional Past Medical History / Comment(s): hx of blood in stool, hx of colon polyps History of Any Multi-Drug Resistant Organisms: None Reported Past Surgical History: Orthopedic Surgery Additional Past Surgical History / Comment(s): colonoscopy, LT WRIST SX, VASECT DEBBIE, rt shoulder rotator cuff Past Anesthesia/Blood Transfusion Reactions: No Reported Reaction Past Psychological History: No Psychological Hx Reported Smoking Status: Current every day smoker Past Alcohol Use History: Occasional Past Drug Use History: None Reported - Past Family History Mother Family Medical History: No Reported History Father Family Medical History: Hypertension Additional Family Medical History / Comment(s): irregular heart beat. Brother(s) Family Medical History: Diabetes Mellitus Additional Family Medical History / Comment(s): Type 1 DM. General Exam Limitations: no limitations General appearance: alert, in no apparent distress Head exam: Present: atraumatic, normocephalic, normal inspection Eye exam: Present: normal appearance, PERRL, EOMI. Absent: scleral icterus, conjunctival injection, periorbital swelling ENT exam: Present: normal exam, mucous membranes moist Neck exam: Present: normal inspection. Absent: tenderness, meningismus, lymphadenopathy Respiratory exam: Present: normal lung sounds bilaterally. Absent: respiratory distress, wheezes, rales, rhonchi, stridor Cardiovascular Exam: Present: regular rate, normal rhythm, normal heart sounds. Absent: systolic murmur, diastolic murmur, rubs, gallop, clicks GI/Abdominal exam: Present: soft, normal bowel sounds. Absent: distended, tenderness, guarding, rebound, rigid Extremities exam: Present: normal inspection, full ROM, normal capillary refill. Absent: tenderness, pedal edema, joint swelling, calf tenderness Back exam: Present: normal inspection Neurological exam: Present: alert, oriented X3, CN II-XII intact Psychiatric exam: Present: normal affect, normal mood Skin exam: Present: warm, dry, intact, normal color. Absent: rash Course Vital Signs 08/23/24 15:04 Temperature 97.7 F Pulse Rate 79 Respiratory 16 Rate Blood Pressure 155/83 O2 Sat by Pulse 98 Oximetry - Reevaluation(s) Reevaluation #1: 08/23/24 19:06 Medical records reviewed Reevaluation #2: 08/23/24 19:06 Patient having difficult to control pain symptoms here in the ER Reevaluation #3: 08/23/24 19:06 Patient informed of results, questions answered, patient unhappy with undiagnosed abdominal pain Patient's states patient cannot go on with his significant pain there is been having for the last few days Patient informed we will observe for symptom management Reevaluation #4: Was pt. sent in by a medical professional or institution ([facility], [employer], urgent care, hospital, or fpc...) When possible be specific @ -no Did you speak to anyone other than the patient for history (EMS, parent, family, police, friend...)? What history was obtained from this source @ -no Did you review nursing and triage notes (agree or disagree)? Why? @ -agree Are old charts reviewed (outside hosp., previous admission, EMS record, old EKG, old radiological studies, urgent care reports/EKG's, fpc records)? Report findings @ -yes Differential Diagnosis (chest pain, altered mental status, abdominal pain women, abdominal pain men, vaginal bleeding, weakness, fever, dyspnea, syncope, headache, dizziness, GI bleed, back pain, seizure, CVA, palpatations, mental health, musculoskeletal)? @ -prior EKG interpreted by me (3pts min.). @ -no X-rays interpreted by me (1pt min.). @ -yes negative for acute disease CT interpreted by me (1pt min.). @ -yes negative for acute disease U/S interpreted by me (1pt. min.). @ -yes negative for acute disease What testing was considered but not performed or refused? (CT, X-rays, U/S, labs)? Why? @ -none What meds were considered but not given or refused? Why? @ -none Did you discuss the management of the patient with other professionals (professionals i.e. [facility], [employer], lab, RT, psych nurse, social service worker, orthopedics teacher, teacher, airfield engineer officer, case filler)? Give summary @ -no Was smoking cessation discussed for >3mins.? @ -no Was critical care preformed (if so, how long)? @ -no Were there social determinants of health that impacted care today? How? (Homelessness, low income, unemployed, alcoholism, drug addiction, transportation, low edu. Level, literacy, decrease access to med. care, penitentiary, rehab)? @ -none Was there de-escalation of care discussed even if they declined (Discuss DNR or withdrawal of care, Hospice)? DNR status @ -no What co-morbidities impacted this encounter? (DM, HTN, Smoking, COPD, CAD, Cancer, CVA, ARF, Chemo, Hep., AIDS, mental health diagnosis, sleep apnea, morbid obesity)? @ -none Was patient admitted / discharged? Hospital course, mention meds given and route, prescriptions, significant lab abnormalities, going to OR and other pertinent info. @ - 59 male will admit for intractable abdominal pain here in the ER Admitted intractable abdominal pain Undiagnosed new problem with uncertain prognosis? @ -no Drug Therapy requiring intensive monitoring for toxicity (Heparin, Nitro, Insulin, Cardizem)? @ -no Were any procedures done? @ -no Diagnosis/symptom? @ - Acute, or Chronic, or Acute on Chronic? @ -Acute Uncomplicated (without systemic symptoms) or Complicated (systemic symptoms)? @ -Complicated Side effects of treatment? @ -no Exacerbation, Progression, or Severe Exacerbation? @ -exacerbation Poses a threat to life or bodily function? How? (Chest pain, [place], [place], pneumonia, PE, COPD, DKA, ARF, appy, cholecystitis, CVA, Diverticulitis, Homicidal, Suicidal, threat to staff... and all critical care pts) @ -yes Reevaluation #5: Differential Abdominal Pain Men: Appendicitis, cholecystitis, diverticulosis, ischemic bowel, pancreatitis, hepatitis, UTI, gastroenteritis, AAA, incarcerated hernia, bowel obstruction, constipation, inflammatory bowel, hepatitis, peptic ulcer disease, splenic infarction, perforated viscus, testicular torsion, this is not meant to be an all-inclusive list - Consultations Consultation #1: Spoke with [facility] who agrees to admit this patient Medical Decision Making - Medical Decision Making 59 male will admit for intractable abdominal pain here in the ER - Lab Data Result diagrams: 08/28/24 04:38 08/28/24 04:38 Lab Results 08/23/24 08/23/24 08/23/24 Range/Units 15:10 15:14 15:14 WBC 11.5 H (3.8-10.6) k/uL RBC 4.79 (4.30-5.90) m/uL Hgb 15.5 (13.0-17.5) gm/dL Hct 46.0 (39.0-53.0) % MCV 96.0 (80.0-100.0) fL MCH 32.3 (25.0-35.0) pg MCHC 33.7 (31.0-37.0) g/dL RDW 13.1 (11.5-15.5) % Plt Count 432 (150-450) k/uL MPV 6.6 Neutrophils % 60 % Lymphocytes % 27 % Monocytes % 8 % Eosinophils % 2 % Basophils % 1 % Neutrophils # 6.9 (1.3-7.7) k/uL Lymphocytes # 3.2 (1.0-4.8) k/uL Monocytes # 0.9 (0-1.0) k/uL Eosinophils # 0.3 (0-0.7) k/uL Basophils # 0.1 (0-0.2) k/uL PT 10.3 (10.0-12.5) sec INR 0.9 (<1.2) APTT 24.9 (22.0-30.0) sec Sodium (137-145) mmol/L Potassium (3.5-5.1) mmol/L Chloride (98-107) mmol/L Carbon Dioxide (22-30) mmol/L Anion Gap mmol/L BUN (9-20) mg/dL Creatinine (0.66-1.25) mg/dL Est GFR (CKD-EPI)AfAm (>60 ml/min/1.73 sqM) Est GFR (CKD-EPI)NonAf (>60 ml/min/1.73 sqM) Glucose (74-99) mg/dL Plasma Lactic Acid Jose De Jesus (0.7-2.0) mmol/L Calcium (8.4-10.2) mg/dL Total Bilirubin (0.2-1.3) mg/dL AST (17-59) U/L ALT (4-49) U/L Alkaline Phosphatase (38-126) U/L Total Protein (6.3-8.2) g/dL Albumin (3.5-5.0) g/dL Amylase (30-110) U/L Lipase (23-300) U/L Blood Type Blood Type Confirm A Positive Blood Type Recheck Bld Type Recheck Status Antibody Screen Spec Expiration Date 08/23/24 08/23/24 08/23/24 Range/Units 15:14 15:14 15:14 WBC (3.8-10.6) k/uL RBC (4.30-5.90) m/uL Hgb (13.0-17.5) gm/dL Hct (39.0-53.0) % MCV (80.0-100.0) fL MCH (25.0-35.0) pg MCHC (31.0-37.0) g/dL RDW (11.5-15.5) % Plt Count (150-450) k/uL MPV Neutrophils % % Lymphocytes % % Monocytes % % Eosinophils % % Basophils % % Neutrophils # (1.3-7.7) k/uL Lymphocytes # (1.0-4.8) k/uL Monocytes # (0-1.0) k/uL Eosinophils # (0-0.7) k/uL Basophils # (0-0.2) k/uL PT (10.0-12.5) sec INR (<1.2) APTT (22.0-30.0) sec Sodium 141 (137-145) mmol/L Potassium 4.2 (3.5-5.1) mmol/L Chloride 111 H (98-107) mmol/L Carbon Dioxide 22 (22-30) mmol/L Anion Gap 8 mmol/L BUN 22 H (9-20) mg/dL Creatinine 0.72 (0.66-1.25) mg/dL Est GFR (CKD-EPI)AfAm >90 (>60 ml/min/1.73 sqM) Est GFR (CKD-EPI)NonAf >90 (>60 ml/min/1.73 sqM) Glucose 69 L (74-99) mg/dL Plasma Lactic Acid Jose De Jesus 1.4 (0.7-2.0) mmol/L Calcium 10.2 (8.4-10.2) mg/dL Total Bilirubin 0.4 (0.2-1.3) mg/dL AST 23 (17-59) U/L ALT 29 (4-49) U/L Alkaline Phosphatase 61 (38-126) U/L Total Protein 7.6 (6.3-8.2) g/dL Albumin 4.7 (3.5-5.0) g/dL Amylase 59 (30-110) U/L Lipase 174 (23-300) U/L Blood Type A Positive Blood Type Confirm Blood Type Recheck No Previous Record Bld Type Recheck Status CABO Indicated Antibody Screen NEGATIVE Spec Expiration Date 08/26/20242309 - Radiology Data Radiology results: report reviewed (CT abdomen pelvis negative for acute disease x-ray KUB negative for acute disease ultrasound gallbladder negative for acute disease), image reviewed Disposition Clinical Impression: Abdominal pain, Intractable abdominal pain Disposition: ADMITTED IP TO THIS [facility] Condition: Good Is patient prescribed a controlled substance at d/c from ED?: No Time of Disposition: 17:30
[2024-08-23 15:56] LABS: INR 0.9 (<1.2); Partial Thromboplastin Time 24.9 sec (22.0-30.0); Prothrombin Time 10.3 sec (10.0-12.5)
[2024-08-23 16:01] LABS: ALT 29 U/L (4-49); AST 23 U/L (17-59); African American GFR (CKD) >90 (>60 ml/min/1.73 sqM); Albumin 4.7 g/dL (3.5-5.0); Alkaline Phosphatase 61 U/L (38-126); Amylase 59 U/L (30-110); Anion Gap 8 mmol/L; Blood Urea Nitrogen 22 mg/dL (9-20); Calcium 10.2 mg/dL (8.4-10.2); Carbon Dioxide 22 mmol/L (22-30); Chloride 111 mmol/L (98-107); Glucose 69 mg/dL (74-99); Lipase 174 U/L (23-300); Non-African American GFR(CKD) >90 (>60 ml/min/1.73 sqM); Potassium 4.2 mmol/L (3.5-5.1); Sodium 141 mmol/L (137-145); Total Bilirubin 0.4 mg/dL (0.2-1.3); Total Protein 7.6 g/dL (6.3-8.2)
--- NOTE | 2024-08-23 16:20 | XR ---
EXAMINATION TYPE: XR KUB DATE OF EXAM: 08/23/2024 4:12 PM COMPARISON: None available. CLINICAL INDICATION: Male, 59 years old with history of abdominal pain; [facility] TECHNIQUE: One radiographic view of the abdomen was obtained. FINDINGS: Nonobstructive bowel gas pattern. No definite evidence of free air. Mild diffuse colonic stool burden . Partially visualized lower lungs without evidence of acute pathology. No acute osseous abnormality. IMPRESSION: Nonobstructive bowel gas pattern without radiographic evidence for acute process. [facility], Workstation: [facility], 08/23/2024 4:18 PM
[2024-08-23] MEDS: ONDANSETRON 4 MG/2 ML VIAL IVP STA (16:59)
[2024-08-23] MEDS: MORPHINE SULFATE 4 MG/ML SYRINGE IVP STA (17:01)
[2024-08-23] MEDS: SODIUM CHLORIDE 0.9% 1,000 ML IV STA (17:03)
--- NOTE | 2024-08-23 17:26 | CT ---
EXAMINATION TYPE: CT abdomen pelvis w con DATE OF EXAM: 08/23/2024 4:57 PM COMPARISON: None CLINICAL INDICATION: Male, 59 years old with history of pian; abdominal pain TECHNIQUE: Axial CT abdomen pelvis w con;Sagittal and coronal reformats were created on a separate w orkstation. Contrast used:100 mL of Isovue 300 with IV Contrast, (none if empty) Oral contrast used: without Oral Contrast (none if empty) CT DLP: 1377.2 mGycm, Automated exposure control for dose reduction was used. FINDINGS: LOWER CHEST: Unremarkable ABDOMEN LIVER: Unremarkable GALLBLADDER AND BILE DUCTS: Unremarkable. PANCREAS: Unremarkable. SPLEEN: Unremarkable. ADRENAL GLANDS: Unremarkable. KIDNEYS AND URETERS: No evidence of hydronephrosis or renal calculus. The ureters are unremarkable. Multiple renal cysts bilaterally. PELVIS BLADDER: No evidence for wall thickening or mass given limitations of exam. REPRODUCTIVE: Unremarkable. ABDOMEN & PELVIS STOMACH AND BOWEL: No evidence of bowel obstruction. The appendix is normal. PERITONEUM/RETROPERITONEUM: No evidence of pneumoperitoneum or free fluid. VASCULATURE: Mild atherosclerotic calcifications are present throughout the abdominal aorta and its b ranches. No evidence of aortic aneurysm. MUSCULOSKELETAL: No acute osseous abnormalities. Moderate disc degeneration changes are present throu ghout the thoracolumbar spine. There may be LYMPH NODES: No gross evidence for lymphadenopathy. SOFT TISSUE/ABDOMINAL WALL: Fat-containing umbilical hernia. IMPRESSION: No evidence for acute abdominal process. No evidence for obstructive uropathy or renal calculus. Norm al-appearing appendix. [facility], , 08/23/2024 5:24 PM
[2024-08-23] MEDS ORDERED: NALOXONE 0.4 MG/ML 1 ML VIAL IV PRN (17:54)
[2024-08-23] MEDS: ONDANSETRON 4 MG ODT STARTER PACK 2 TAB BTL PO STA (17:55)
[2024-08-23] MEDS: traMADol 50 MG STARTER PACK 3 TAB BTL PO STA (17:56)
[2024-08-23] MEDS: IBUPROFEN 600 MG STARTER PACK 4 TAB BTL PO STA (17:56)
[2024-08-23] MEDS: PANTOPRAZOLE 40 MG/10 ML VIAL IVP SCH (19:01)
[2024-08-23] MEDS: HYDROmorphone 1 MG/ML 1 ML SYRINGE IVP STA (19:02)
[2024-08-23] MEDS: SODIUM CHLORIDE 0.9% 1,000 ML IV SCH (19:02)
--- NOTE | 2024-08-23 19:14 | US ---
EXAMINATION TYPE: US gallbladder DATE OF EXAM: 08/23/2024 COMPARISON: CT today CLINICAL INDICATION: Male, 59 years old with history of pain; Abd pain TECHNIQUE: Grayscale and color Doppler imaging of the right upper quadrant was performed. FINDINGS: EXAM MEASUREMENTS: Liver Length: 18.4 cm Gallbladder Wall: 0.2 cm CBD: 0.2 cm Right Kidney: 12.3 x 4.7 x 5.6 cm CLINICAL PHYSICIAN ASSISTANT NOTES:Limited visualization due to overlying gas Pancreas: Obscured by bowel gas Liver: Enlarged Gallbladder: wnl Evidence for sonographic Herndon's sign: No CBD: wnl Right Kidney: Multiple anechoic areas seen, largest measuring 1.3 x 1.2 x 1.2cm in the inferior pole . There is also a possible echogenic foci in the inferior pole measuring 0.6 x 0.5 x 0.6cm. IMPRESSION: 1. No evidence for acute process. 2. Nonobstructing right renal calculi. 3. Right simple appearing cyst renal cyst. [facility], Workstation: [id number], 08/23/2024 7:12 PM
[2024-08-23 22:23] LABS: Appearance,Urine Clear (Clear); Bilirubin,Urine Negative (Negative); Blood,Urine Negative (Negative); Color,Urine Colorless; Glucose,Urine (UA) Negative (Negative); Ketones,Urine Negative (Negative); Leukocyte Esterase,Urine Negative (Negative); Nitrite,Urine Negative (Negative); PH, Urine 5.5 (5.0-8.0); Protein,Urine Negative (Negative); Urobilinogen,Urine <2.0 mg/dL (<2.0)
[2024-08-24] MEDS: HYDROmorphone 1 MG/ML 1 ML SYRINGE IVP PRN ×2 (04:08→14:24)
[2024-08-24 08:35] LABS: Basophils # (A) 0.07 X 10*3/uL (0.00-0.10); Basophils % (A) 0.6 %; Eosinophils % (A) 1.8 %; HCT 43.5 % (39.6-50.0); HGB 14.7 g/dL (13.0-17.0); Lymphocytes # (A) 2.42 X 10*3/uL (0.90-5.00); Lymphocytes % (A) 21.4 %; MCH 32.4 pg (27.0-32.0); MCHC 33.8 g/dL (32.0-37.0); MCV 95.8 FL (80.0-97.0); Mean Platelet Volume 9.6 FL (9.5-12.2); Monocytes # (A) 1.07 X 10*3/uL (0.20-1.00); Monocytes % (A) 9.4 %; NRBC Per 100 WBC 0 X 10*3/uL (0.00-0.01); Neutrophils # (A) 7.53 X 10*3/uL (1.80-7.70); Neutrophils % (A) 66.4 %; Platelet Count 364 X 10*3/uL (140-440); RBC 4.54 X 10*6/uL (4.40-5.60); RDW 13.5 % (11.5-14.5); WBC 11.33 X 10*3/uL (4.50-10.00)
[2024-08-24 08:42] LABS: ALT 25 U/L (10-49); AST 20 U/L (14-35); Albumin 4.2 g/dL (3.8-4.9); Alkaline Phosphatase 69 U/L (41-126); BUN/Creat Ratio 21.71 Ratio (12.00-20.00); Blood Urea Nitrogen 15.2 mg/dL (9.0-27.0); Calcium 9.2 mg/dL (8.7-10.3); Carbon Dioxide 23.3 mmol/L (21.6-31.8); Chloride 108 mmol/L (96-109); Globulin 2.1 g/dL (1.6-3.3); Glucose 108 mg/dL (70-110); Magnesium 1.9 mg/dL (1.5-2.4); Phosphorus 2.6 mg/dL (2.4-5.1); Potassium 4.6 mmol/L (3.5-5.5); Sodium 141 mmol/L (135-145); Total Bilirubin 0.5 mg/dL (0.3-1.2); Total Protein 6.3 g/dL (6.2-8.2)
[2024-08-24] MEDS: SUCRALFATE 1 GM TAB PO SCH (09:15)
[2024-08-24] MEDS: AMPICILLIN-SULBACTAM 1.5 GM in SODIUM CHLORIDE 0.9% 50 ML IVPB SCH (09:15)
[2024-08-24] MEDS: NICOTINE 21MG/24HR PATCH TRANSDERM SCH (13:32)
[2024-08-24] MEDS ORDERED: DEXTROSE 50% SYRINGE 50 ML IVP PRN ×2 (13:45)
[2024-08-24] MEDS ORDERED: HYDROmorphone 0.5 MG/0.5 ML SYRINGE IVP PRN ×2 (13:46→13:47)
[2024-08-24] MEDS: MULTIVITAMINS, THERA 1 EACH TAB PO SCH (13:52)
[2024-08-24] MEDS: CYANOCOBALAMIN 500 MCG TAB PO SCH (13:52)
[2024-08-24] MEDS ORDERED: LEVOFLOXACIN 500 MG TAB PO SCH (14:00)
--- NOTE | 2024-08-24 14:09 | HP ---
HISTORY AND PHYSICAL CHIEF COMPLAINT: Abdominal pain and diarrhea. HISTORY OF PRESENT ILLNESS: This is a 59-year-old gentleman with a past medical history of COPD, diabetes mellitus, and GERD, was complaining of significant diarrhea for the last several days. The patient also had diffuse abdominal pain. The patient was unable to keep anything down and the patient came to [facility] and admitted for further evaluation and treatment. The initial labs showed elevated white count. Otherwise, the CT scan of the abdomen and pelvis, which I reviewed personally showed no evidence of any acute process. There is no history of any fever, rigors, or chills at this time. PAST MEDICAL HISTORY: History of COPD, diabetes mellitus. Rest of the history and rest of the chart is also reviewed. HOME MEDICATIONS: Metformin, doses and rest of medications noted. ALLERGIES: None. FAMILY HISTORY: Irregular heartbeat. SOCIAL HISTORY: Previous history of smoking. REVIEW OF SYSTEMS: Fourteen-point review is negative except as mentioned earlier. PHYSICAL EXAMINATION: VITAL SIGNS: Pulse 65, blood pressure 147/73, respirations 16. HEENT: Conjunctivae normal. NECK: No JVD. CARDIOVASCULAR: S1, S2. RESPIRATIONS: Breath sounds diminished at the bases. No rhonchi. No crackles. ABDOMEN: Soft, mild diffuse tenderness and distended. LEGS: No edema. NERVOUS SYSTEM: Nonfocal. LABORATORY DATA: WBC 7.33. ASSESSMENT: 1. Intractable diarrhea as well as abdominal pain, possibly acute infectious gastroenteritis. 2. Elevated WBC. 3. Chronic obstructive pulmonary disease. 4. Diabetes mellitus, type 2. 5. Hyperlipidemia. 6. Multiple complex medical issues. RECOMMENDATIONS AND DISCUSSION: This is a 59-year-old gentleman, who presented with multiple complex medical issues, we will monitor the patient closely. I would recommend empiric antibiotics and Infectious Disease, and Surgery evaluation. Guarded prognosis because of multiple complex medical issues. Further recommendations to follow. See orders for further details. We will check stool for C difficile versus parasites and stool culture also. MMODL / IJN: [id number] /
[2024-08-24] MEDS: SERTRALINE 100 MG TAB PO SCH (14:16)
[2024-08-24] MEDS: metroNIDAZOLE 500 MG TAB PO SCH (14:16)
[2024-08-24] MEDS: TAMSULOSIN 0.4 MG CAP.ER.24H PO STA (14:16)
--- NOTE | 2024-08-24 15:56 | P.GSCN ---
History of Present Illness Consult date: 08/24/24 History of present illness: CHIEF COMPLAINT: Abdominal pain HISTORY OF PRESENT ILLNESS: This is a 59-year-old male who presented to the hospital with complaints of abdominal pain x 7 days. He reports having episodes of nausea and vomiting and loose dark green stools. He denies any sick contacts. Denies any recent traveling. He had a CAT scan abdomen pelvis and ga llbladder ultrasound that were unremarkable. White count mildly elevated. Patient was started on antibiotics. Patient's oral intake has been decreased. PAST MEDICAL HISTORY: See below PAST SURGICAL HISTORY: See below MEDICATIONS: See below ALLERGIES: See below SOCIAL HISTORY: No illicit drug use. REVIEW OF SYSTEMS: CONSTITUTIONAL: Denies fever or chills. HEENT: Denies blurred vision, vision changes, or eye pain. Denies hemoptysis CARDIOVASCULAR: Denies chest pain or pressure. RESPIRATORY: No shortness of breath. GASTROINTESTINAL: See HPI for pertinent findings HEMATOLOGIC: Denies bleeding disorders. GENITOURINARY: Denies any blood in urine or increased urinary frequency. SKIN: Denies pruitis. Denies rash. PHYSICAL EXAM: VITAL SIGNS: Reviewed GENERAL: Well-developed in no acute distress. HEENT: No sclera icterus. Extraocular movements grossly intact. Moist buccal mucosa. Head is atraumatic, normocephalic. No nasal drainage. ABDOMEN: Soft. Mildly distended. Tenderness down the mid abdomen. No guarding or rebound noted NEUROLOGIC: Alert and oriented. Cranial nerves II through XII grossly intact. LABORATORY DATA: WBC 11.3 Hgb 14.7 platelets 364 IMAGING: Gallbladder ultrasound no evidence of acute process. Nonobstructing right renal calculi. Right simple appearing cyst CT scan abdomen pelvis reports no evidence for acute abdominal process ASSESSMENT: 1. Abdominal pain with nausea vomiting and diarrhea likely due to a gastroenteritis PLAN: -Patient placed empirically on antibiotics due to elevated white count -Protonix and Carafate added for symptomatic management -Patient complaining of urinary retention check postvoid residual -Continue clear liquid diet Physician Mental Health Assistant note has been reviewed by physician. Signing provider agrees with the documented findings, assessment, and plan of care. Attestation Patient seen and examined at bedside. Presented with chief complaint of abdominal pain for 7 days. He also has had some nausea vomiting and loose stools. CT of the abdomen and pelvis was performed with no acute abnormalities. Ultrasound of gallbladder was performed with no significant abnormalities noted. White count is mildly elevated. No obvious surgical process going on at this time. Possibility of gastroenteritis. Patient was started on IV antibiotics, PPI and Carafate. Continue clear liquid diet at this time. America Johnson DO Past Medical History Past Medical History: COPD, Diabetes Mellitus, GERD/Reflux, Hyperlipidemia, Sleep Apnea/CPAP/BIPAP Additional Past Medical History / Comment(s): hx of blood in stool, hx of colon polyps History of Any Multi-Drug Resistant Organisms: None Reported Past Surgical History: Heart Catheterization, Orthopedic Surgery Additional Past Surgical History / Comment(s): colonoscopy, LT WRIST SX, VASECTOMY, rt shoulder rotator cuff, bilateral carp tunnel sx. ganglion cysts removed bilateral Past Anesthesia/Blood Transfusion Reactions: No Reported Reaction Past Psychological History: Anxiety, Depression Smoking Status: Former smoker Past Alcohol Use History: Occasional Additional Past Alcohol Use History / Comment(s): SMOKES 1.5 PPD SINCE AGE 13, quit smoking 07/25/2024. Past Drug Use History: None Reported Additional Drug Use History / Comment(s): occasional thc gummies - Past Family History Mother Family Medical History: No Reported History Father Family Medical History: Hypertension Additional Family Medical History / Comment(s): irregular heart beat. Brother(s) Family Medical History: Diabetes Mellitus Additional Family Medical History / Comment(s): Type 1 DM. Medications and Allergies Home Medications Medication Instructions Recorded Confirmed Type Cyanocobalamin (Vitamin B-12) 1,000 mcg PO DAILY 09/29/22 08/23/24 History [Vitamin B-12] Multivitamins, Thera [Multivitamin 1 tab PO DAILY 09/29/22 08/23/24 History (formulary)] Nicotine 21Mg/24Hr Patch [Habitrol] 1 patch TRANSDERM DAILY 08/23/24 08/23/24 History Omeprazole Magnesium [PriLOSEC OTC] 20 mg PO DAILY 08/23/24 08/23/24 History Ondansetron Odt [Zofran Odt] 4 mg PO Q8HR PRN 08/23/24 08/23/24 History Sertraline [Zoloft] 100 mg PO DAILY 08/23/24 08/23/24 History metFORMIN HCL ER [Glucophage XR] 500 mg PO DAILY 08/23/24 08/23/24 History Allergies Allergy/AdvReac Type Severity Reaction Status Date / Time No Known Allergies Allergy Verified 08/23/24 18:33 Surgical - Exam Osteopathic Statement: *. No significant issues noted on an osteopathic stru ctural exam other than those noted in the History and Physical/Consult. Vital Signs Temp Pulse Resp BP Pulse Ox 97.7 F 79 16 155/83 98 08/23/24 15:04 08/23/24 15:04 08/23/24 15:04 08/23/24 15:04 08/23/24 15:04 Results - Labs 08/24/24 04:04 08/24/24 04:04 Abnormal Lab Results - Last 24 Hours (Table) 08/23/24 08/23/24 08/24/24 Range/Units 15:14 21:30 04:04 WBC 11.33 H (4.50-10.00) X 10*3/uL MCH 32.4 H (27.0-32.0) pg Monocytes # 1.07 H (0.20-1.00) X 10*3/uL Chloride 111 H (98-107) mmol/L BUN 22 H (9-20) mg/dL BUN/Creatinine Ratio (12.00-20.00) Ratio Glucose 69 L (74-99) mg/dL Ur Specific [place] 1.050 H (1.001-1.035) 08/24/24 Range/Units 04:04 WBC (4.50-10.00) X 10*3/uL MCH (27.0-32.0) pg Monocytes # (0.20-1.00) X 10*3/uL Chloride (98-107) mmol/L BUN (9-20) mg/dL BUN/Creatinine Ratio 21.71 H (12.00-20.00) Ratio Glucose (74-99) mg/dL Ur Specific [place] (1.001-1.035) Diabetes panel 08/23/24 08/24/24 Range/Units 15:14 04:04 Sodium 141 141 (137-145) mmol/L Potassium 4.2 4.6 (3.5-5.1) mmol/L Chloride 111 H 108 (98-107) mmol/L Carbon Dioxide 22 23.3 (22-30) mmol/L BUN 22 H 15.2 (9-20) mg/dL Creatinine 0.72 0.7 (0.66-1.25) mg/dL Glucose 69 L 108 (74-99) mg/dL Calcium 10.2 9.2 (8.4-10.2) mg/dL AST 23 20 (17-59) U/L ALT 29 25 (4-49) U/L Alkaline Phosphatase 61 69 (38-126) U/L Total Protein 7.6 6.3 (6.3-8.2) g/dL Albumin 4.7 4.2 (3.5-5.0) g/dL Calcium panel 08/23/24 08/24/24 Range/Units 15:14 04:04 Calcium 10.2 9.2 (8.4-10.2) mg/dL Phosphorus 2.6 (2.4-5.1) mg/dL Albumin 4.7 4.2 (3.5-5.0) g/dL Pituitary panel 08/23/24 08/24/24 Range/Units 15:14 04:04 Sodium 141 141 (137-145) mmol/L Potassium 4.2 4.6 (3.5-5.1) mmol/L Chloride 111 H 108 (98-107) mmol/L Carbon Dioxide 22 23.3 (22-30) mmol/L BUN 22 H 15.2 (9-20) mg/dL Creatinine 0.72 0.7 (0.66-1.25) mg/dL Glucose 69 L 108 (74-99) mg/dL Calcium 10.2 9.2 (8.4-10.2) mg/dL Adrenal panel 08/23/24 08/24/24 Range/Units 15:14 04:04 Sodium 141 141 (137-145) mmol/L Potassium 4.2 4.6 (3.5-5.1) mmol/L Chloride 111 H 108 (98-107) mmol/L Carbon Dioxide 22 23.3 (22-30) mmol/L BUN 22 H 15.2 (9-20) mg/dL Creatinine 0.72 0.7 (0.66-1.25) mg/dL Glucose 69 L 108 (74-99) mg/dL Calcium 10.2 9.2 (8.4-10.2) mg/dL Total Bilirubin 0.4 0.5 (0.2-1.3) mg/dL AST 23 20 (17-59) U/L ALT 29 25 (4-49) U/L Alkaline Phosphatase 61 69 (38-126) U/L Total Protein 7.6 6.3 (6.3-8.2) g/dL Albumin 4.7 4.2 (3.5-5.0) g/dL
[2024-08-24] MEDS: LEVOFLOXACIN 500MG-D5W PMX 500 MG in DEXTROSE/WATER 1 100ML.BAG IVPB SCH (17:03)
[2024-08-24 17:25] LABS: Glucose,Whole Blood 95 mg/dL (70-110)
[2024-08-24] MEDS: INSULIN ASPART (NovoLOG) 100 UNIT/ML VIAL SQ SCH (17:27)
[2024-08-24 20:10] LABS: Glucose,Whole Blood 108 mg/dL (70-110)
[2024-08-24] MEDS: HEPARIN SODIUM,PORCINE 5,000 UNIT/ML 1 ML VIAL SQ SCH (22:07)
[2024-08-24] MEDS: HYDROcodone/APAP 5-325MG 1 EACH TAB PO PRN (23:07)
[2024-08-25 05:49] LABS: Glucose,Whole Blood 106 mg/dL (70-110)
--- NOTE | 2024-08-25 08:38 | P.CONS ---
History of Present Illness - Reason for Consult Consult date: 08/24/24 Abdominal pain? Infection Requesting physician: Malathi Randall - Chief Complaint Abdominal pain vomiting and diarrhea x 7 days - History of Present Illness Patient is a 59-year-old male with a past medical history significant for diabetes mellitus reflux hyperlipidemia sleep apnea COPD presenting to the hospital for evaluation of abdominal pain nausea vomiting and diarrhea this patient symptom has been going on for about a week patient symptoms started with abdominal pain which is mostly in the center of the abdominal epigastric area describing it to be sharp moderate intensity no significant radiation with associated nausea vomiting and did have multiple episode of loose stools. Denies any blood or mucus in the stools and denies high-grade fever did not recall taking any antibiotics prior to his symptoms started and other family member having similar symptoms patient on presentation to the hospital was afebrile and no fever have been called subsequently patient was not tachycardic hypotensive or hypoxic and no need for supplemental oxygen patient did have a white count of 11.5 with a left shift creatinine 0.72 electrolytes are normal liver enzymes are normal urine has been negative patient did have a outpatient stool for Cryptosporidium and Giardia antigen which came back negative on 08/23/2024 patient did have a abdominal pelvis CT no evidence for acute abdominal process no evidence for obstructive uropathy or renal calculus normal-appearing appendix this CAT scan was done only with IV contrast gallbladder ultrasound reported negative as well patient has been on empiric Levaquin and Flagyl infectious disease was consulted today concerning for infection Review of Systems Positive point and negatives has been mentioned in the HPI, complete review of systems was performed and all other systems are negative Past Medical History Past Medical History: COPD, Diabetes Mellitus, GERD/Reflux, Hyperlipidemia, Sleep Apnea/CPAP/BIPAP Additional Past Medical History / Comment(s): hx of blood in stool, hx of colon polyps History of Any Multi-Drug Resistant Organisms: None Reported Past Surgical History: Heart Catheterization, Orthopedic Surgery Additional Past Surgical History / Comment(s): colonoscopy, LT WRIST SX, VASECTOMY, rt shoulder rotator cuff, bilateral carp tunnel sx. ganglion cysts removed bilateral Past Anesthesia/Blood Transfusion Reactions: No Reported Reaction Past Psychological History: Anxiety, Depression Smoking Status: Former smoker Past Alcohol Use History: Occasional Additional Past Alcohol Use History / Comment(s): SMOKES 1.5 PPD SINCE AGE 13, quit smoking 07/25/2024. Past Drug Use History: None Reported Additional Drug Use History / Comment(s): occasional thc gummies - Past Family History Mother Family Medical History: No Reported History Father Family Medical History: Hypertension Additional Family Medical History / Comment(s): irregular heart beat. Brother(s) Family Medical History: Diabetes Mellitus Additional Family Medical History / Comment(s): Type 1 DM. Medications and Allergies Home Medications Medication Instructions Recorded Confirmed Type Cyanocobalamin (Vitamin B-12) 1,000 mcg PO DAILY 09/29/22 08/23/24 History [Vitamin B-12] Multivitamins, Thera [Multivitamin 1 tab PO DAILY 09/29/22 08/23/24 History (formulary)] Nicotine 21Mg/24Hr Patch [Habitrol] 1 patch TRANSDERM DAILY 08/23/24 08/23/24 History Omeprazole Magnesium [PriLOSEC OTC] 20 mg PO DAILY 08/23/24 08/23/24 History Ondansetron Odt [Zofran Odt] 4 mg PO Q8HR PRN 08/23/24 08/23/24 History Sertraline [Zoloft] 100 mg PO DAILY 08/23/24 08/23/24 History metFORMIN HCL ER [Glucophage XR] 500 mg PO DAILY 08/23/24 08/23/24 History Allergies Allergy/AdvReac Type Severity Reaction Status Date / Time No Known Allergies Allergy Verified 08/23/24 18:33 Physical Exam Vitals: Vital Signs Temp Pulse Pulse Resp BP BP BP 08/24/24 07:10 98.0 F 65 16 147/73 08/24/24 01:55 97.8 F 73 17 115/77 08/23/24 20:26 97.3 F L 75 18 147/83 08/23/24 15:04 97.7 F 79 16 155/83 Pulse Ox 08/24/24 07:10 98 08/24/24 01:55 96 08/23/24 20:26 97 08/23/24 15:04 98 Intake and Output 08/23/24 08/24/24 08/24/24 22:59 06:59 14:59 Other: Voiding Method Toilet Urinal # Voids 1 1 Weight 100.698 kg GENERAL DESCRIPTION: Middle-aged male lying in bed, no distress. No tachypnea or accessory muscle of respiration use. HEENT: Shows Pallor , no scleral icterus. Oral mucous membrane is dry. No pharyngeal erythema or thrush NECK: Trachea central, no thyromegaly. LUNGS: Unlabored breathing. Clear to auscultation anteriorly. No wheeze or crackle. HEART: S1, S2, regular rate and rhythm. No loud murmur ABDOMEN: Soft, no tenderness , EXTREMITIES: No edema of feet. SKIN: No rash, no masses palpable. NEUROLOGICAL: The patient is awake, alert, oriented x3, mood and affect normal. Results CBC & Chem 7: 08/24/24 04:04 08/24/24 04:04 Labs: Abnormal Lab Results - Last 24 Hours (Table) 08/23/24 08/23/24 08/23/24 Range/Units 15:14 15:14 21:30 WBC 11.5 H (3.8-10.6) k/uL MCH (27.0-32.0) pg Monocytes # (0.20-1.00) X 10*3/uL Chloride 111 H (98-107) mmol/L BUN 22 H (9-20) mg/dL BUN/Creatinine Ratio (12.00-20.00) Ratio Glucose 69 L (74-99) mg/dL Ur Specific [place] 1.050 H (1.001-1.035) 08/24/24 08/24/24 Range/Units 04:04 04:04 WBC 11.33 H (3.8-10.6) k/uL MCH 32.4 H (27.0-32.0) pg Monocytes # 1.07 H (0.20-1.00) X 10*3/uL Chloride (98-107) mmol/L BUN (9-20) mg/dL BUN/Creatinine Ratio 21.71 H (12.00-20.00) Ratio Glucose (74-99) mg/dL Ur Specific [place] (1.001-1.035) Assessment and Plan (1) Acute infective gastroenteritis Current Visit: Yes Status: Acute Code(s): A09 - INFECTIOUS GASTROENTERITIS AND COLITIS, UNSPECIFIED SNOMED Code(s): 71836803 (2) Leukocytosis Current Visit: Yes Status: Acute Code(s): D72.829 - ELEVATED WHITE BLOOD CELL COUNT, UNSPECIFIED SNOMED Code(s): 348128480 Plan: 1patient presented to hospital with abdominal pain nausea vomiting and having diarrhea did have mild elevated white count CT did not show any evidence of colitis or obstruction concerning for possible gastroenteritis questionably viral versus bacterial etiology with a recent outpatient stool for Giardia and Cryptosporidium were negative. 2we will check a stool for C. difficile and stool culture to complete the workup. 3continue with empiric Levaquin and Flagyl while waiting for the workup to be completed. 4if the symptoms do not improve by tomorrow recommend obtaining a CT of abdominal pelvis with oral and IV contrast. Multiple question concern answered. We will follow on clinical condition and cultures to further adjust medication if needed Thank you for this consultation we will follow the patient along with you Dictation was produced using [employer] dictation software. please excuse any grammatical, word or spelling errors. Time with Patient: Greater than 30
[2024-08-25 08:43] LABS: Basophils # (A) 0.04 X 10*3/uL (0.00-0.10); Basophils % (A) 0.5 %; Eosinophils # (A) 0.22 X 10*3/uL (0.04-0.35); Eosinophils % (A) 2.6 %; HCT 37.5 % (39.6-50.0); HGB 12.8 g/dL (13.0-17.0); Lymphocytes # (A) 2.55 X 10*3/uL (0.90-5.00); Lymphocytes % (A) 30.1 %; MCH 31.9 pg (27.0-32.0); MCHC 34.1 g/dL (32.0-37.0); MCV 93.5 FL (80.0-97.0); Mean Platelet Volume 8.7 FL (9.5-12.2); Monocytes # (A) 0.93 X 10*3/uL (0.20-1.00); NRBC Per 100 WBC 0 X 10*3/uL (0.00-0.01); Neutrophils % (A) 55.6 %; Platelet Count 365 X 10*3/uL (140-440); RBC 4.01 X 10*6/uL (4.40-5.60); RDW 13.3 % (11.5-14.5); WBC 8.46 X 10*3/uL (4.50-10.00)
[2024-08-25 08:51] LABS: Blood Urea Nitrogen 9.6 mg/dL (9.0-27.0); Carbon Dioxide 25.8 mmol/L (21.6-31.8); Chloride 107 mmol/L (96-109); Glucose 101 mg/dL (70-110); Potassium 4.4 mmol/L (3.5-5.5); Sodium 143 mmol/L (135-145)
[2024-08-25 08:52] LABS: ALT 22 U/L (10-49); AST 16 U/L (14-35); Albumin 4.1 g/dL (3.8-4.9); Albumin/Globulin Ratio 1.95 Ratio (1.60-3.17); Alkaline Phosphatase 69 U/L (41-126); Calcium 9.2 mg/dL (8.7-10.3); Globulin 2.1 g/dL (1.6-3.3); Total Bilirubin 0.5 mg/dL (0.3-1.2); Total Protein 6.2 g/dL (6.2-8.2)
[2024-08-25] MEDS ORDERED: NON FORMULARY DRUG (Omeprazole Magnesium [Prilosec Otc] 20 MG Tablet) PO SCH (09:00)
[2024-08-25] MEDS: TAMSULOSIN 0.4 MG CAP.ER.24H PO SCH (09:21)
[2024-08-25] MEDS: IOPAMIDOL CONTRAST (ORAL USE) VIAL PO PRN (11:35)
[2024-08-25 11:56] LABS: Glucose,Whole Blood 95 mg/dL (70-110)
--- NOTE | 2024-08-25 13:24 | CT ---
EXAMINATION TYPE: CT abdomen pelvis w con CT DLP: 1539.9 mGycm, Automated exposure control for dose reduction was used. DATE OF EXAM: 08/25/2024 1:14 PM COMPARISON: CT abdomen pelvis 08/23/2024, 12/18/2017, gallbladder ultrasound 08/23/2024 CLINICAL INDICATION:Male, 59 years old with history of abdominal pain; pain in umbilical area/ diffic ulty urinating TECHNIQUE: Standard CT of the abdomen and pelvis following the administration of 100 cc of Isovue 3 00 IV contrast material and oral contrast. Coronal and sagittal reformats were performed. FINDINGS: LOWER CHEST: Unremarkable ABDOMEN LIVER: Unremarkable GALLBLADDER AND BILE DUCTS: Unremarkable. PANCREAS: Unremarkable. SPLEEN: Unremarkable. ADRENAL GLANDS: Unremarkable. KIDNEYS AND URETERS: No evidence of hydronephrosis or renal calculus. The kidneys enhance symmetrical ly. Multiple cortical subcentimeter hypodense foci favored to represent cysts. Contrast is demonstrat ed within both collecting systems on delayed phase. PELVIS BLADDER: Mildly distended. No wall thickening or surrounding inflammatory changes. REPRODUCTIVE: Unremarkable. ABDOMEN & PELVIS STOMACH AND BOWEL: Stomach and duodenum are unremarkable. Enteric contrast reaches the transverse col on. No focal bowel wall thickening or surrounding inflammatory changes. The appendix is within normal limits. No evidence of bowel obstruction. PERITONEUM: No evidence of pneumoperitoneum or free fluid. VASCULATURE: Mild atherosclerotic calcifications are present throughout the abdominal aorta and its b ranches. No evidence of aortic aneurysm. MUSCULOSKELETAL: No acute osseous abnormalities. Mild disc degeneration changes are present throughou t the thoracolumbar spine. LYMPH NODES: No evidence for lymphadenopathy. SOFT TISSUE/ABDOMINAL WALL: Unremarkable IMPRESSION: No acute abdominal/pelvic process. No evidence for obstructive uropathy. [facility], , 08/25/2024 1:22 PM
--- NOTE | 2024-08-25 15:23 | P.PN ---
Subjective Progress Note Date: 08/25/24 SURGICAL PROGRESS NOTE CHIEF COMPLAINT: Abdominal pain HISTORY OF PRESENT ILLNESS: Patient continues to report abdominal pain mid abdomen. He reports having decrease in the amount of diarrhea. Denies any nausea or vomiting. Afebrile. WBC is down from 11.3-8.4. Bladder scan completed showing 292 mL. Medicine service started Flomax. PHYSICAL EXAM: VITAL SIGNS: Reviewed. GENERAL: Well-developed in no acute distress. HEENT: No sclera icterus. Extraocular movements grossly intact. Moist buccal mucosa. Head is atraumatic, normocephalic. ABDOMEN: Soft. Nondistended. Tender with palpation once to the mid abdomen NEUROLOGIC: Alert and oriented. Cranial nerves II through XII grossly intact. ASSESSMENT: 1. Abdominal pain with nausea, vomiting and diarrhea likely due to a gastroenteritis PLAN: -Due to patient continuing to have abdominal pain CAT scan with oral and IV contrast ordered. Results report no acute abdominal pelvic process. No obstructive uropathy. -Continue antibiotics per ID service -Continue PPI and Carafate -Continue clear liquid diet for now Physician Certified Anesthesiologist Assistant note has been reviewed by physician. Signing provider agrees with the documented findings, assessment, and plan of care. Objective - Vital Signs Vital signs: Vital Signs Temp 97.6 F 08/25/24 14:01 Pulse 70 08/25/24 14:01 Resp 18 08/25/24 14:01 BP 144/87 08/25/24 14:01 Pulse Ox 97 08/25/24 14:01 FiO2 Intake & Output 08/24/24 08/25/24 08/25/24 18:59 06:59 18:59 Intake Total 236 Output Total 292 2700 725 Balance -292 -2700 -489 Intake: Oral 236 Output: Urine 2700 725 Straight 1000 Post Void Residual 292 Other: Voiding Method Toilet Toilet Urinal Urinal # Voids 2 1 1 - Labs CBC & Chem 7: 08/25/24 04:17 08/25/24 04:17 Labs: Abnormal Lab Results - Last 24 Hours (Table) 08/25/24 08/25/24 Range/Units 04:17 04:17 RBC 4.01 L (4.40-5.60) X 10*6/uL Hgb 12.8 L (13.0-17.0) g/dL Hct 37.5 L (39.6-50.0) % MPV 8.7 L (9.5-12.2) FL Hemoglobin A1c 6.2 H (<=6.0) % Assessment and Plan Assessment: 59 yo male w/ gastroenteritis -continue clear liquid diet and advance diet as tolerated -no surgical intervention Time with Patient: Less than 30
[2024-08-25 17:16] LABS: Glucose,Whole Blood 92 mg/dL (70-110)
[2024-08-25 20:11] LABS: Glucose,Whole Blood 106 mg/dL (70-110)
--- NOTE | 2024-08-26 05:23 | P.PN ---
Subjective Progress Note Date: 08/25/24 This is a 59-year-old male who was recently admitted with diffuse abdominal pain had been having ongoing diarrhea with abdominal pain since . General surgery and infectious disease following. Patient continues to report severe pain requiring IV Dilaudid with no significant relief and patient also reporting having some urinary retention. Patient scheduled to undergo CT abdomen with contrast per surgery today. Patient has not had a bowel movement since admission and infectious disease also following. C. difficile testing is ordered although doubt is positive as patient has not had a bowel movement in 2 days. Patient is afebrile continues to report difficulty with urination and has been started on Flomax. Patient reports he required straight catheterization overnight. Will increase Flomax to twice daily. Await CT abdomen. Encouraged increase activity as tolerated Review of systems: Constitutional: No reports of fatigue, fever, or chills Cardiovascular: No reports of chest pain or palpitations Respiratory: No reports of shortness of breath or cough GI: reports of nausea, no reports of vomiting, reports continued severe abdominal pain and no further diarrhea : No reports of dysuria reports having difficulty passing urine Neurovascular: reports of generalized weakness All medications have been reviewed PHYSICAL EXAMINATION: GENERAL: The patient is alert and oriented x4, Well developed, well nourished. Obese, elderly HEENT: Pupils are round and equally reacting to light. EOMI. no scleral icterus. No conjunctival pallor. Normocephalic, atraumatic. No pharyngeal erythema. No thyromegaly. CARDIOVASCULAR: S1 and S2 muffled PULMONARY: diminished breath sounds bilaterally with no wheezing or rhonchi noted. ABDOMEN: soft. tender on exam. obese. non-distended, normoactive bowel sounds. No palpable organomegaly. MUSCULOSKELETAL: No joint swelling or deformity. EXTREMITIES: No cyanosis, clubbing, or pedal edema. NEUROLOGICAL: Gross neurological examination did not reveal any focal deficits. Diffuse weakness SKIN: No rashes. Assessment: Intractable diarrhea as well as abdominal pain, possibly acute infectious gastroenteritis Leukocytosis possibly secondary to above Chronic obstructive pulmonary disease, not in exacerbation Diabetes mellitus, type II Hyperlipidemia Obesity with a BMI 30.1 GI prophylaxis DVT prophylaxis Full code Plan: Recommend to continue with current medications and management with general surgery and infectious disease following. Patient was started on empiric antibiotics and will continue for now Patient continues to report severe abdominal pain that persists and general surgery following ordering CT abdomen with contrast which is pending Patient reports required straight catheterization overnight and having difficulty passing urine. Flomax was started and will make twice daily Encouraged to increase activity as tolerated Continue clear liquids for now and advance as tolerated per surgery. No surgic al interventions planned at this time Possible discharge planning in the next 24 to 48 hours The impression and plan of care has been dictated by Malathi Randall, nurse practitioner as directed. Dr. Demetrius MD I have performed a history and examination and MDM of this patient, discussed the same with the dictator, and agree with the dictator's assessment and plan as written ,documented as a scribe. Based on total visit time, I have performed more than 50% of the visit. Any additional findings or plans will be noted. Objective - Vital Signs Vital signs: Vital Signs Temp 97.8 F 08/26/24 02:00 Pulse 64 08/26/24 02:00 Resp 17 08/26/24 02:00 BP 157/78 08/26/24 02:00 Pulse Ox 96 08/26/24 02:00 FiO2 Intake & Output 08/25/24 08/25/24 08/26/24 06:59 18:59 06:59 Intake Total 476 Output Total 2700 725 850 Balance -2700 -249 -850 Intake: Oral 476 Output: Urine 2700 725 850 Straight 1000 Other: Voiding Method Toilet Toilet Urinal Urinal Urinal # Voids 1 2 - Labs CBC & Chem 7: 08/25/24 04:17 08/25/24 04:17 Labs: Abnormal Lab Results - Last 24 Hours (Table) 08/25/24 08/25/24 Range/Units 04:17 04:17 RBC 4.01 L (4.40-5.60) X 10*6/uL Hgb 12.8 L (13.0-17.0) g/dL Hct 37.5 L (39.6-50.0) % MPV 8.7 L (9.5-12.2) FL Hemoglobin A1c 6.2 H (<=6.0) %
[2024-08-26 05:35] LABS: Glucose,Whole Blood 104 mg/dL (70-110)
[2024-08-26] MEDS: ONDANSETRON 4 MG/2 ML VIAL IVP PRN (06:40)
[2024-08-26] MEDS: TAMSULOSIN 0.4 MG CAP.ER.24H PO SCH (07:49)
[2024-08-26 10:42] LABS: Basophils # (A) 0.04 X 10*3/uL (0.00-0.10); Basophils % (A) 0.5 %; Eosinophils # (A) 0.19 X 10*3/uL (0.04-0.35); Eosinophils % (A) 2.6 %; HCT 40.7 % (39.6-50.0); HGB 13.8 g/dL (13.0-17.0); Lymphocytes # (A) 1.74 X 10*3/uL (0.90-5.00); Lymphocytes % (A) 23.8 %; MCH 31.4 pg (27.0-32.0); MCHC 33.9 g/dL (32.0-37.0); MCV 92.7 FL (80.0-97.0); Mean Platelet Volume 8.9 FL (9.5-12.2); Monocytes # (A) 0.78 X 10*3/uL (0.20-1.00); Monocytes % (A) 10.7 %; NRBC Per 100 WBC 0 X 10*3/uL (0.00-0.01); Neutrophils # (A) 4.54 X 10*3/uL (1.80-7.70); Neutrophils % (A) 62.3 %; Platelet Count 389 X 10*3/uL (140-440); RBC 4.39 X 10*6/uL (4.40-5.60); RDW 13.1 % (11.5-14.5)
[2024-08-26 10:58] LABS: BUN/Creat Ratio 10.12 Ratio (12.00-20.00); Blood Urea Nitrogen 8.1 mg/dL (9.0-27.0); Calcium 9.8 mg/dL (8.7-10.3); Carbon Dioxide 24.4 mmol/L (21.6-31.8); Chloride 105 mmol/L (96-109); Glucose 100 mg/dL (70-110); Potassium 4.5 mmol/L (3.5-5.5); Sodium 140 mmol/L (135-145)
[2024-08-26 12:19] LABS: Glucose,Whole Blood 126 mg/dL (70-110)
--- NOTE | 2024-08-26 12:34 | P.PN ---
Subjective Progress Note Date: 08/25/24 Principal diagnosis: Reason for follow-up is leukocytosis and abdominal pain Patient is a 59-year-old male with a past medical history significant for diabetes mellitus reflux hyperlipidemia sleep apnea COPD presenting to the hospital for evaluation of abdominal pain nausea vomiting and diarrhea, initially CT was done without oral contrast did not show any acute abnormality. On today's evaluation that is 08/25/2024, Patient is afebrile patient is currently on room air and denies having any shortness of breath, the patient denies any chest pain or cough, the patient denies any nausea vomiting still complaining of abdominal pain mostly epigastric area and diarrhea has improved. Patient white count normalized to 8.46 creatinine 0.8 Objective - Vital Signs Vital signs: Vital Signs Temp 97.7 F 08/25/24 07:38 Pulse 60 08/25/24 07:38 Resp 16 08/25/24 07:38 BP 144/76 08/25/24 07:38 Pulse Ox 98 08/25/24 07:38 FiO2 Intake & Output 08/24/24 08/25/24 08/25/24 18:59 06:59 18:59 Intake Total 118 Output Total 292 2700 Balance -292 -2700 118 Intake: Oral 118 Output: Urine 2700 Straight 1000 Post Void Residual 292 Other: Voiding Method Toilet Toilet Urinal Urinal # Voids 2 1 - Exam GENERAL DESCRIPTION: Middle-age male up in bed in no distress RESPIRATORY SYSTEM: Unlabored breathing , decreased breath sounds at bases HEART: S1 S2 regular rate and rhythm , ABDOMEN: Soft , mild epigastric tenderness EXTREMITIES: No edema feet - Labs CBC & Chem 7: 08/26/24 06:26 08/26/24 06:26 Labs: Abnormal Lab Results - Last 24 Hours (Table) 08/25/24 08/25/24 Range/Units 04:17 04:17 RBC 4.01 L (4.40-5.60) X 10*6/uL Hgb 12.8 L (13.0-17.0) g/dL Hct 37.5 L (39.6-50.0) % MPV 8.7 L (9.5-12.2) FL Hemoglobin A1c 6.2 H (<=6.0) % Assessment and Plan (1) Acute infective gastroenteritis Current Visit: Yes Status: Acute Code(s): A09 - INFECTIOUS GASTROENTERITIS AND COLITIS, UNSPECIFIED SNOMED Code(s): 09514294 (2) Leukocytosis Current Visit: Yes Status: Acute Code(s): D72.829 - ELEVATED WHITE BLOOD CELL COUNT, UNSPECIFIED SNOMED Code(s): 915553618 Plan: 1patient presented to hospital with abdominal pain nausea vomiting and having diarrhea did have mild elevated white count CT did not show any evidence of colitis or obstruction concerning for possible gastroenteritis questionably viral versus bacterial etiology with a recent outpatient stool for Giardia and Cryptosporidium were negative. 2 stool for C. difficile and stool culture requested not yet completed 3 CT of abdominal pelvis with oral and IV contrast has been ordered by surgery will follow-up on the results continue with the Lev at this point. Dictation was produced using [employer] dictation software. please excuse any grammatical, word or spelling errors. Time with Patient: Less than 30
--- NOTE | 2024-08-26 12:37 | P.PN ---
Subjective Progress Note Date: 08/26/24 Principal diagnosis: Reason for follow-up is leukocytosis and abdominal pain Patient is a 59-year-old male with a past medical history significant for diabetes mellitus reflux hyperlipidemia sleep apnea COPD presenting to the hospital for evaluation of abdominal pain nausea vomiting and diarrhea, initially CT was done without oral contrast did not show any acute abnormality. On today's evaluation that is 08/26/2024, patient has been afebrile, patient is breathing comfortably and is currently on room air, patient denies having any significant cough no chest pain, patient denies nausea vomiting did have resolution of the diarrhea still complaining of abdominal pain mostly in the epigastric area. Patient white count 7.30, creatinine 0.[address] a [address] abdominal pelvis completed yesterday with contrast did not show any acute abdominal process Objective - Vital Signs Vital signs: Vital Signs Temp 97.5 F L 08/26/24 07:40 Pulse 80 08/26/24 10:08 Resp 18 08/26/24 10:08 BP 159/81 08/26/24 07:40 Pulse Ox 93 L 08/26/24 07:40 FiO2 Intake & Output 08/25/24 08/26/24 08/26/24 18:59 06:59 18:59 Intake Total 476 Output Total 725 850 Balance -249 -850 Intake: Oral 476 Output: Urine 725 850 Other: Voiding Method Toilet Urinal Urinal Urinal # Voids 2 2 - Exam GENERAL DESCRIPTION: Middle-age male up in bed in no distress RESPIRATORY SYSTEM: Unlabored breathing , decreased breath sounds at bases HEART: S1 S2 regular rate and rhythm , ABDOMEN: Soft , mild epigastric tenderness EXTREMITIES: No edema feet - Labs CBC & Chem 7: 08/26/24 06:26 08/26/24 06:26 Labs: Abnormal Lab Results - Last 24 Hours (Table) 08/26/24 08/26/24 08/26/24 Range/Units 06:26 06:26 12:17 RBC 4.39 L (4.40-5.60) X 10*6/uL MPV 8.9 L (9.5-12.2) FL BUN 8.1 L (9.0-27.0) mg/dL BUN/Creatinine Ratio 10.12 L (12.00-20.00) Ratio POC Glucose (mg/dL) 126 H (70-110) mg/dL Assessment and Plan (1) Acute infective gastroenteritis Current Visit: Yes Status: Acute Code(s): A09 - INFECTIOUS GASTROENTERITIS AND COLITIS, UNSPECIFIED SNOMED Code(s): 20975709 (2) Leukocytosis Current Visit: Yes Status: Acute Code(s): D72.829 - ELEVATED WHITE BLOOD CELL COUNT, UNSPECIFIED SNOMED Code(s): 646229811 Plan: 1patient presented to hospital with abdominal pain nausea vomiting and having diarrhea did have mild elevated white count CT did not show any evidence of colitis or obstruction concerning for possible gastroenteritis questionably viral versus bacterial etiology with a recent outpatient stool for Giardia and Cryptosporidium were negative. 2 stool for C. difficile and stool culture requested not yet completed 3 CT of abdominal pelvis with oral and IV contrast did not show any acute abnormality with the pain most epigastric area questionably peptic ulcer disease may benefit from EGD surgery is following the patient 4continue with the Levaquin Flagyl in view of normalization of his white count with current antibiotic regime Dictation was produced using [employer] dictation software. please excuse any grammatical, word or spelling errors. Time with Patient: Less than 30
--- NOTE | 2024-08-26 15:02 | P.PN ---
Subjective Progress Note Date: 08/26/24 SURGICAL PROGRESS NOTE CHIEF COMPLAINT: Abdominal pain HISTORY OF PRESENT ILLNESS: Patient continues to complain of mid abdominal pain. He still reports bloating. His stool was more formed today. He reports increase in pain with eating the liquids. He also describes some episodes of dysphagia prior to admission. Last colonoscopy was a year ago in which she reports having polyps removed. Afebrile. WBC 7.[address] scan from yesterday reported no acute process. PHYSICAL EXAM: VITAL SIGNS: Reviewed. GENERAL: Well-developed in no acute distress. HEENT: No sclera icterus. Extraocular movements grossly intact. Moist buccal mucosa. Head is atraumatic, normocephalic. ABDOMEN: Soft. mildly distended. Tender with palpation once to the mid abdomen and epigastric area NEUROLOGIC: Alert and oriented. Cranial nerves II through XII grossly intact. ASSESSMENT: 1. Abdominal pain with nausea, vomiting and diarrhea likely due to a gastroenteritis PLAN: -Check acute hepatitis panel. Rule out acute hepatitis contribute to patient's nausea vomiting diarrhea -Further recommendations forthcoming per surgeon regarding possible EGD and colonoscopy -Continue a full liquid diet at this time -Continue antibiotics per ID service -Continue PPI and Carafate Physician Pneumatic Tool Operator note has been reviewed by physician. Signing provider agrees with the documented findings, assessment, and plan of care. Objective - Vital Signs Vital signs: Vital Signs Temp 97.5 F L 08/26/24 07:40 Pulse 80 08/26/24 10:08 Resp 18 08/26/24 10:08 BP 159/81 08/26/24 07:40 Pulse Ox 93 L 08/26/24 07:40 FiO2 Intake & Output 08/25/24 08/26/24 08/26/24 18:59 06:59 18:59 Intake Total 476 Output Total 725 850 Balance -249 -850 Intake: Oral 476 Output: Urine 725 850 Other: Voiding Method Toilet Urinal Urinal Urinal # Voids 2 2 - Labs CBC & Chem 7: 08/26/24 06:26 08/26/24 06:26
[2024-08-26 15:28] LABS: Hepatitis A Antibody IgM Nonreactive (Nonreactive); Hepatitis B Core IgM Nonreactive (Nonreactive); Hepatitis B Surface Antigen Nonreactive (Nonreactive); Hepatitis C IgG Antibody Nonreactive (Nonreactive)
[2024-08-26 17:16] LABS: Glucose,Whole Blood 88 mg/dL (70-110)
[2024-08-26] MEDS: PANTOPRAZOLE 40 MG/10 ML VIAL IVP SCH (20:11)
[2024-08-26 22:02] LABS: Glucose,Whole Blood 125 mg/dL (70-110)
--- NOTE | 2024-08-27 03:43 | P.PN ---
Progress Note - Text Progress Note Date: 08/27/24 CHIEF COMPLAINT: Abdominal pain HISTORY OF PRESENT ILLNESS: Patient continues to have some abdominal pain. No acute events overnight PHYSICAL EXAM: VITAL SIGNS: Reviewed. GENERAL: Well-developed in no acute distress. HEENT: No sclera icterus. Extraocular movements grossly intact. Moist buccal mucosa. Head is atraumatic, normocephalic. ABDOMEN: Soft. mildly distended. Tender with palpation once to the mid abdomen and epigastric area NEUROLOGIC: Alert and oriented. Cranial nerves II through XII grossly intact. ASSESSMENT: 1. Abdominal pain with nausea, vomiting and diarrhea likely due to a gastroenteritis PLAN: -Full Liquid Diet: Ok to Advance As Tolerated -Outpatient EGD and Colonoscopy -Continue antibiotics per ID service -Continue PPI and Carafate Cheng [place] DO [facility] [phone]
--- NOTE | 2024-08-27 04:54 | P.PN ---
Subjective Progress Note Date: 08/26/24 This is a 59-year-old male who was recently admitted with diffuse abdominal pain had been having ongoing diarrhea with abdominal pain since . General surgery and infectious disease following. Patient continues to report severe pain requiring IV Dilaudid with no significant relief and patient also reporting having some urinary retention. Patient scheduled to undergo CT abdomen with contrast per surgery today. Patient has not had a bowel movement since admission and infectious disease also following. C. difficile testing is ordered although doubt is positive as patient has not had a bowel movement in 2 days. Patient is afebrile continues to report difficulty with urination and has been started on Flomax. Patient reports he required straight catheterization overnight. Will increase Flomax to twice daily. Await CT abdomen. Encouraged increase activity as tolerated 08/27/2024 Patient is seen in follow-up today continues to report mid epigastric abdominal pain that persists in having continued abdominal pain with clears and full liquids. Patient is maintained on full liquids and general surgery following discussing possible EGD/colonoscopy. Patient remains on Dilaudid and encouraged the patient to avoid if possible continue with oral pain medications. Encouraged increase activity as tolerated with frequent walking multiple times daily. CT abdomen showing no acute process to explain patient's continued pain. Patient is afebrile denies chest pain or shortness of breath. Reports to feeling nauseated at times with no vomiting noted. Review of systems: Constitutional: No reports of fatigue, fever, or chills Cardiovascular: No reports of chest pain or palpitations Respiratory: No reports of shortness of breath or cough GI: reports of nausea, no reports of vomiting, reports continued severe abdominal pain and no further diarrhea : No reports of dysuria reports having difficulty passing urine Neurovascular: reports of generalized weakness All medications have been reviewed PHYSICAL EXAMINATION: GENERAL: The patient is alert and oriented x4, Well developed, well nourished. Obese, elderly HEENT: Pupils are round and equally reacting to light. EOMI. no scleral icterus. No conjunctival pallor. Normocephalic, atraumatic. No pharyngeal erythema. No thyromegaly. CARDIOVASCULAR: S1 and S2 muffled PULMONARY: diminished breath sounds bilaterally with no wheezing or rhonchi noted. ABDOMEN: soft. tender on exam in the mid epigastric above umbilical region. obese. non-distended, normoactive bowel sounds. No palpable organomegaly. MUSCULOSKELETAL: No joint swelling or deformity. EXTREMITIES: No cyanosis, clubbing, or pedal edema. NEUROLOGICAL: Gross neurological examination did not reveal any focal deficits. Diffuse weakness SKIN: No rashes. Assessment: Intractable diarrhea as well as abdominal pain, possibly acute infectious ga stroenteritis Leukocytosis possibly secondary to above Chronic obstructive pulmonary disease, not in exacerbation Diabetes mellitus, type II Hyperlipidemia Obesity with a BMI 30.1 GI prophylaxis DVT prophylaxis Full code Plan: Recommend to continue with current medications and management with general surgery and infectious disease following. Patient was started on empiric antibiotics and will continue for now Patient continues to report severe abdominal pain that persists and general surgery following and underwent CT abdomen yesterday which was unremarkable Patient reports required straight catheterization overnight and having difficulty passing urine. Flomax to continue. Patient denies further issues at this time Encouraged to increase activity as tolerated Continue full liquids for now and advance as tolerated per surgery. No surgical interventions planned at this time. Per patient surgery discussing possible endoscopy this admission given patient's continued pain. Overall prognosis is guarded The impression and plan of care has been dictated by Malathi Randall, nurse practitioner as directed. Dr. Demetrius MD I have performed a history and examination and MDM of this patient, discussed the same with the dictator, and agree with the dictator's assessment and plan as written ,documented as a scribe. Based on total visit time, I have performed more than 50% of the visit. Any additional findings or plans will be noted. Objective - Vital Signs Vital signs: Vital Signs Temp 98.0 F 08/26/24 14:00 Pulse 58 L 08/26/24 14:00 Resp 20 08/26/24 14:00 BP 140/78 08/26/24 14:00 Pulse Ox 97 08/26/24 14:00 FiO2 Intake & Output 08/25/24 08/26/24 08/26/24 18:59 06:59 18:59 Intake Total 476 720 Output Total 725 850 Balance -249 -850 720 Intake: Oral 476 720 Output: Urine 725 850 Other: Voiding Method Toilet Urinal Urinal Urinal # Voids 2 2 - Labs CBC & Chem 7: 08/26/24 06:26 08/26/24 06:26 Labs: Abnormal Lab Results - Last 24 Hours (Table) 08/26/24 08/26/24 08/26/24 Range/Units 06:26 06:26 12:17 RBC 4.39 L (4.40-5.60) X 10*6/uL MPV 8.9 L (9.5-12.2) FL BUN 8.1 L (9.0-27.0) mg/dL BUN/Creatinine Ratio 10.12 L (12.00-20.00) Ratio POC Glucose (mg/dL) 126 H (70-110) mg/dL
[2024-08-27 05:55] LABS: Glucose,Whole Blood 123 mg/dL (70-110)
[2024-08-27] MEDS: HYDROmorphone 0.5 MG/0.5 ML SYRINGE IVP PRN (08:49)
[2024-08-27 12:22] LABS: Glucose,Whole Blood 83 mg/dL (70-110)
[2024-08-27 17:24] LABS: Glucose,Whole Blood 81 mg/dL (70-110)
[2024-08-27 20:15] LABS: Glucose,Whole Blood 119 mg/dL (70-110)
--- NOTE | 2024-08-27 22:40 | P.PN ---
Subjective Progress Note Date: 08/27/24 Principal diagnosis: Reason for follow-up is leukocytosis and abdominal pain Patient is a 59-year-old male with a past medical history significant for diabetes mellitus reflux hyperlipidemia sleep apnea COPD presenting to the hospital for evaluation of abdominal pain nausea vomiting and diarrhea, initially CT was done without oral contrast did not show any acute abnormality. On today's evaluation that is 08/27/2024, Patient is afebrile this morning patient denies having any chest pain shortness of breath or cough, the patient is currently on room air, patient still complaining of epigastric abdominal pain but no nausea vomiting and diarrhea has slowed down. No new lab has been obtained today Objective - Vital Signs Vital signs: Vital Signs Temp 97.7 F 08/27/24 08:00 Pulse 58 L 08/27/24 08:00 Resp 18 08/27/24 08:00 BP 143/70 08/27/24 08:00 Pulse Ox 96 08/27/24 08:00 FiO2 Intake & Output 08/26/24 08/27/24 08/27/24 18:59 06:59 18:59 Intake Total 960 360 236 Balance 960 360 236 Intake: Oral 960 360 236 Other: Voiding Method Urinal Toilet Urinal # Voids 2 2 # Bowel Movements 1 - Exam GENERAL DESCRIPTION: Middle-age male up in bed in no distress RESPIRATORY SYSTEM: Unlabored breathing , decreased breath sounds at bases HEART: S1 S2 regular rate and rhythm , ABDOMEN: Soft , mild epigastric tenderness EXTREMITIES: No edema feet - Labs CBC & Chem 7: 08/26/24 06:26 08/26/24 06:26 Labs: Abnormal Lab Results - Last 24 Hours (Table) 08/26/24 08/26/24 08/27/24 Range/Units 12:17 22:00 05:54 POC Glucose (mg/dL) 126 H 125 H 123 H (70-110) mg/dL Assessment and Plan (1) Acute infective gastroenteritis Current Visit: Yes Status: Acute Code(s): A09 - INFECTIOUS GASTROENTERITIS AND COLITIS, UNSPECIFIED SNOMED Code(s): 48174755 (2) Leukocytosis Current Visit: Yes Status: Acute Code(s): D72.829 - ELEVATED WHITE BLOOD CELL COUNT, UNSPECIFIED SNOMED Code(s): 263597007 Plan: 1patient presented to hospital with abdominal pain nausea vomiting and having diarrhea did have mild elevated white count CT did not show any evidence of colitis or obstruction concerning for possible gastroenteritis questionably viral versus bacterial etiology with a recent outpatient stool for Giardia and Cryptosporidium were negative. 2 stool for C. difficile and stool culture requested not yet completed 3 CT of abdominal pelvis with oral and IV contrast did not show any acute abnormality with the pain most epigastric area questionably peptic ulcer disease may benefit from EGD surgery is following the patient and recommending outpatient endoscopy May continue with the Levaquin and Flagyl likely transition to p.o. on discharge for a short course Dictation was produced using [employer] dictation software. please excuse any grammatical, word or spelling errors. Time with Patient: Less than 30
--- NOTE | 2024-08-28 04:12 | PN ---
PROGRESS NOTE DATE OF SERVICE: 08/27/2024 SUBJECTIVE: This is a 59-year-old gentleman who was admitted with intractable diarrhea and possibly infectious gastroparesis. The patient continued to have abdominal pain. Surgery is planning endoscopes. No chest pain. No palpitation. OBJECTIVE: VITAL SIGNS: Pulse 59, blood pressure 170/70, respirations 17. CHEST: A few scattered rhonchi. ABDOMEN: Soft, mild diffuse tenderness, distended. NERVOUS SYSTEM: Nonfocal. LABORATORY DATA: Noted. ASSESSMENT: 1. Intractable diarrhea as well as abdominal pain, possibly acute infectious gastroenteritis. 2. Severe abdominal pain and abdominal distention. 3. Chronic obstructive pulmonary disease. 4. Diabetes mellitus, type 2. 5. Multiple complex medical issues. RECOMMENDATIONS AND DISCUSSION: Recommend to continue current management and continue symptomatic treatment. Repeat labs. Otherwise, I recommend symptomatic treatment and possible endoscopies by Surgery. Closely follow with Surgery. Prognosis guarded. Further recommendations to follow. The patient has empiric antibiotics. MMODL / IJN: [id number] /
[2024-08-28 06:23] LABS: Glucose,Whole Blood 110 mg/dL (70-110)
--- NOTE | 2024-08-28 08:17 | P.PN ---
Progress Note - Text Progress Note Date: 08/28/24 HISTORY OF PRESENT ILLNESS: Patient continues to have some abdominal pain. No acute events overnight PHYSICAL EXAM: VITAL SIGNS: Reviewed. GENERAL: Well-developed in no acute distress. HEENT: No sclera icterus. Extraocular movements grossly intact. Moist buccal mucosa. Head is atraumatic, normocephalic. ABDOMEN: Soft. mildly distended. Tender with palpation once to the mid abdomen and epigastric area NEUROLOGIC: Alert and oriented. Cranial nerves II through XII grossly intact. ASSESSMENT: 1. Abdominal pain with nausea, vomiting and diarrhea likely due to a gastroenteritis PLAN: -Regular Diet -Outpatient EGD and Colonoscopy -Continue antibiotics per ID service -Continue PPI and Carafate [facility] [phone]
[2024-08-28 09:55] LABS: Basophils # (A) 0.04 X 10*3/uL (0.00-0.10); Basophils % (A) 0.5 %; Eosinophils # (A) 0.27 X 10*3/uL (0.04-0.35); Eosinophils % (A) 3.3 %; HCT 39.7 % (39.6-50.0); HGB 13.8 g/dL (13.0-17.0); Lymphocytes # (A) 2.48 X 10*3/uL (0.90-5.00); Lymphocytes % (A) 30.4 %; MCHC 34.8 g/dL (32.0-37.0); Mean Platelet Volume 9.2 FL (9.5-12.2); Monocytes # (A) 0.97 X 10*3/uL (0.20-1.00); Monocytes % (A) 11.9 %; NRBC Per 100 WBC 0 X 10*3/uL (0.00-0.01); Neutrophils # (A) 4.38 X 10*3/uL (1.80-7.70); Neutrophils % (A) 53.7 %; Platelet Count 384 X 10*3/uL (140-440); RBC 4.18 X 10*6/uL (4.40-5.60); RDW 13.1 % (11.5-14.5); WBC 8.16 X 10*3/uL (4.50-10.00)
[2024-08-28 09:58] LABS: BUN/Creat Ratio 9.44 Ratio (12.00-20.00); Blood Urea Nitrogen 8.5 mg/dL (9.0-27.0); Calcium 9.5 mg/dL (8.7-10.3); Carbon Dioxide 25.7 mmol/L (21.6-31.8); Chloride 106 mmol/L (96-109); Glucose 110 mg/dL (70-110); Potassium 4.3 mmol/L (3.5-5.5); Sodium 139 mmol/L (135-145)
[2024-08-28 12:16] LABS: Glucose,Whole Blood 84 mg/dL (70-110)
[2024-08-28 17:22] LABS: Glucose,Whole Blood 96 mg/dL (70-110)
[2024-08-28] MEDS: PEG 3350 (236 GM/BTL) + LYTES 4,000 ML BOTTLE PO ONE (18:00)
[2024-08-28 19:52] LABS: Glucose,Whole Blood 80 mg/dL (70-110)
[2024-08-28 20:12] VITALS: RESP 17
--- NOTE | 2024-08-29 04:36 | PN ---
PROGRESS NOTE DATE OF SERVICE: 08/28/2024 SUBJECTIVE: This 59-year-old gentleman admitted with intractable abdominal pain, possibly had infectious gastroenteritis also. No chest pain. No palpitations. No fever. OBJECTIVE: VITAL SIGNS: Pulse is 70, blood pressure 132/64, respirations 18. HEENT: Conjunctivae normal. NECK: No JVD. CARDIOVASCULAR: S1, S2. RESPIRATIONS: Breath sounds diminished at the bases. ABDOMEN: Soft. NERVOUS SYSTEM: Nonfocal. LABORATORY DATA: Reviewed. ASSESSMENT: 1. Intractable diarrhea as well as abdominal pain, possibly acute infectious gastroenteritis. 2. Severe abdominal pain and abdominal distention. 3. Possible midline hernia. 4. Chronic obstructive pulmonary disease. 5. Diabetes mellitus, type 2. 6. Multiple complex medical issues. RECOMMENDATIONS: Recommend to continue current management and repeat labs. Otherwise, continue the antibiotic empirically. Surgical evaluation, possible endoscopies. Further recommendations to follow. MMODL / IJN: [id number] /
[2024-08-29 05:58] LABS: Glucose,Whole Blood 118 mg/dL (70-110)
--- NOTE | 2024-08-29 07:54 | P.PN ---
Subjective Progress Note Date: 08/28/24 Principal diagnosis: Reason for follow-up is leukocytosis and abdominal pain Patient is a 59-year-old male with a past medical history significant for diabetes mellitus reflux hyperlipidemia sleep apnea COPD presenting to the hospital for evaluation of abdominal pain nausea vomiting and diarrhea, initially CT was done without oral contrast did not show any acute abnormality. On today's evaluation that is 08/28/2024,the patient denies any fever or any chills, patient is breathing comfortably on room air, the patient denies chest pain shortness of breath and no significant cough, patient still complaining of epigastric discomfort and some swelling no nausea vomiting did have improvement in the diarrhea No new lab has been obtained today Objective - Vital Signs Vital signs: Vital Signs Temp 98.0 F 08/28/24 20:00 Pulse 67 08/28/24 20:00 Resp 17 08/28/24 20:00 BP 135/78 08/28/24 20:00 Pulse Ox 99 08/28/24 20:00 FiO2 Intake & Output 08/28/24 08/28/24 08/29/24 06:59 18:59 06:59 Intake Total 638 Balance 638 Intake: Oral 638 Other: Voiding Method Toilet Toilet Toilet # Voids 1 4 # Bowel Movements 1 - Exam GENERAL DESCRIPTION: Middle-age male up in bed in no distress RESPIRATORY SYSTEM: Unlabored breathing , decreased breath sounds at bases HEART: S1 S2 regular rate and rhythm , ABDOMEN: Soft , mild epigastric tenderness EXTREMITIES: No edema feet - Labs CBC & Chem 7: 08/28/24 04:38 08/28/24 04:38 Labs: Abnormal Lab Results - Last 24 Hours (Table) 08/28/24 08/28/24 Range/Units 04:38 04:38 RBC 4.18 L (4.40-5.60) X 10*6/uL MCH 33.0 H (27.0-32.0) pg MPV 9.2 L (9.5-12.2) FL BUN 8.5 L (9.0-27.0) mg/dL BUN/Creatinine Ratio 9.44 L (12.00-20.00) Ratio Assessment and Plan (1) Acute infective gastroenteritis Current Visit: Yes Status: Acute Code(s): A09 - INFECTIOUS GASTROENTERITIS AND COLITIS, UNSPECIFIED SNOMED Code(s): 00874692 (2) Leukocytosis Current Visit: Yes Status: Acute Code(s): D72.829 - ELEVATED WHITE BLOOD CELL COUNT, UNSPECIFIED SNOMED Code(s): 706835472 (3) Epigastric hernia Current Visit: Yes Status: Acute Code(s): K43.9 - VENTRAL HERNIA WITHOUT OBSTRUCTION OR GANGRENE SNOMED Code(s): 710799656 Plan: 1patient presented to hospital with abdominal pain nausea vomiting and having diarrhea did have mild elevated white count CT did not show any evidence of colitis or obstruction concerning for possible gastroenteritis questionably viral versus bacterial etiology with a recent outpatient stool for Giardia and Cryptosporidium were negative. 2 stool for C. difficile and stool culture requested not yet completed 3 CT of abdominal pelvis with oral and IV contrast did not show any acute abnormality with the pain most epigastric area and noticed to have a significant epigastric hernia more likely etiology of his pain nursing staff has been advised to apply abdominal binder and will benefit from surgical correction possibly in the outpatient setting patient did have overall resolution of his diarrhea antibiotics can be safely discontinued Dictation was produced using [employer] dictation software. please excuse any gram matical, word or spelling errors.
[2024-08-29 08:39] LABS: BUN/Creat Ratio 11.38 Ratio (12.00-20.00); Blood Urea Nitrogen 9.1 mg/dL (9.0-27.0); Calcium 9.3 mg/dL (8.7-10.3); Carbon Dioxide 26.8 mmol/L (21.6-31.8); Chloride 104 mmol/L (96-109); Glucose 115 mg/dL (70-110); Sodium 140 mmol/L (135-145)
[2024-08-29 08:49] LABS: Basophils # (A) 0.05 X 10*3/uL (0.00-0.10); Basophils % (A) 0.5 %; Eosinophils # (A) 0.26 X 10*3/uL (0.04-0.35); Eosinophils % (A) 2.7 %; HCT 41.9 % (39.6-50.0); HGB 14.2 g/dL (13.0-17.0); Lymphocytes % (A) 25.2 %; MCH 31.7 pg (27.0-32.0); MCHC 33.9 g/dL (32.0-37.0); MCV 93.5 FL (80.0-97.0); Mean Platelet Volume 9.3 FL (9.5-12.2); Monocytes # (A) 1.03 X 10*3/uL (0.20-1.00); Monocytes % (A) 10.8 %; NRBC Per 100 WBC 0 X 10*3/uL (0.00-0.01); Neutrophils # (A) 5.75 X 10*3/uL (1.80-7.70); Neutrophils % (A) 60.5 %; Platelet Count 394 X 10*3/uL (140-440); RBC 4.48 X 10*6/uL (4.40-5.60); RDW 13.1 % (11.5-14.5); WBC 9.52 X 10*3/uL (4.50-10.00)
[2024-08-29] MEDS ORDERED: PROPOFOL 10 MG/ML 20 ML VIAL IV ONE (10:07)
[2024-08-29] MEDS ORDERED: LIDOCAINE 2% (PF) 20 MG/ML 5 ML VIAL ONE (10:07)
--- NOTE | 2024-08-29 10:33 | P.PCN ---
Date of Procedure: 08/29/24 Preoperative Diagnosis: Abdominal pain Nausea, vomiting, diarrhea Postoperative Diagnosis: Hiatal hernia Duodenitis Descending colon polyp Procedure(s) Performed: EGD with biopsy Colonoscopy with polypectomy Anesthesia: MAC Surgeon: America Johnson Pathology: other (Biopsy of duodenum, antrum, GE junction, descending colon polyp) Condition: stable Disposition: same day Indications for Procedure: 59-year-old male admitted to the hospital secondary to abdominal pain, nausea, vomiting, diarrhea. With consistency of symptoms, recommendation was made for further evaluation with upper and lower endoscopy. Risks, benefits and alternatives were provided. All questions answered prior to attending the e ndoscopy suite. Operative Findings: Small hiatal hernia Duodenitis Descending colon polyp Description of Procedure: The patient was brought to the endoscopy suite and placed in left lateral decubitus position and adequate sedation was achieved using conscious sedation. A bite-block was placed and an endoscope was placed in the oropharynx and adv anced under endoscopic visualization. The endoscope was advanced through the esophagus into the stomach, through the gastric antrum and in through the pylorus. The third portion of duodenum was visualized. The endoscope was then slowly withdrawn. The first portion of duodenum was noted to have inflammatory changes. Biopsies were taken. Similarly, the antrum was noted to have mild inflammatory changes. Biopsies were taken. The gastric body distended normally and the gastric folds appeared normal and flattened with insufflation. A retroflexed view of the fundus and GE junction revealed a mild hiatal hernia. The esophagus appeared endoscopically normal and biopsies were taken of the GE junction. Excess air was removed and the scope was withdrawn and the procedure was completed. A digital rectal exam was performed and mild internal hemorrhoids were palpated. An endoscope was then placed in the rectum and advanced to the cecum as identified by landmarks including the appendiceal orifice and the ileocecal valve. The prep was good. The colonoscope was then slowly withdrawn, examining for any mucosal abnormalities. The cecum, ascending, transverse, descending and sigmoid colon were visualized adequately. No large inflammatory masses were noted throughout the colon. Small polyp noted in the descending colon. This was removed with forcep polypectomy. Moderate diverticulosis was noted in the sigmoid colon. No evidence of bleeding. No evidence of stenosis or stricturing. Retroflexion was performed in the rectum and mild internal hemorrhoids were visible. Excess air was removed, the colonoscope withdrawn and the procedure terminated. The patient was then transferred to recovery unit in stable condition. Repeat colonoscopy should be performed in 5 years.
[2024-08-29] MEDS: IV FLUID CONTINUATION 1,000 ML IV ONE (10:34)
[2024-08-29 12:03] LABS: Glucose,Whole Blood 83 mg/dL (70-110)
[2024-08-29 14:58] VITALS: BP 123/61; PULSE 76; TEMP 98.1
--- NOTE | 2024-08-30 13:02 | P.PN ---
Subjective Progress Note Date: 08/29/24 Principal diagnosis: Reason for follow-up is leukocytosis and abdominal pain Patient is a 59-year-old male with a past medical history significant for diabetes mellitus reflux hyperlipidemia sleep apnea COPD presenting to the hospital for evaluation of abdominal pain nausea vomiting and diarrhea, initially CT was done without oral contrast did not show any acute abnormality. On today's evaluation that is 08/29/2024,the patient remains to be afebrile, patient is on room air not requiring supplemental oxygen and denies any shortness of breath no chest pain or cough.Patient denies having any nausea or vomiting, no worsening epigastric pain and did have resolution of his diarrhea patient is status post EGD and colonoscopy completed this morning reports pending. Patient white count is 9.52, creatinine 0.8 stool culture so far negative Objective - Vital Signs Vital signs: Vital Signs Temp 97.8 F 08/29/24 07:15 Pulse 77 08/29/24 07:15 Resp 17 08/29/24 07:15 BP 129/84 08/29/24 07:15 Pulse Ox 97 08/29/24 07:15 FiO2 Intake & Output 08/28/24 08/29/24 08/29/24 18:59 06:59 18:59 Intake Total 638 Balance 638 Intake: Oral 638 Other: Voiding Method Toilet Toilet # Voids 4 2 # Bowel Movements 1 - Exam GENERAL DESCRIPTION: Middle-age male up in bed in no distress RESPIRATORY SYSTEM: Unlabored breathing , decreased breath sounds at bases HEART: S1 S2 regular rate and rhythm , ABDOMEN: Soft , mild epigastric tenderness EXTREMITIES: No edema feet - Labs CBC & Chem 7: 08/29/24 04:49 08/29/24 04:49 Labs: Abnormal Lab Results - Last 24 Hours (Table) 08/29/24 08/29/24 08/29/24 Range/Units 04:49 04:49 05:57 MPV 9.3 L (9.5-12.2) FL Monocytes # 1.03 H (0.20-1.00) X 10*3/uL BUN/Creatinine Ratio 11.38 L (12.00-20.00) Ratio Glucose 115 H (70-110) mg/dL POC Glucose (mg/dL) 118 H (70-110) mg/dL Microbiology - Last 24 Hours (Table) 08/26/24 19:13 Stool Culture - Preliminary Stool Assessment and Plan (1) Acute infective gastroenteritis Status: Acute Code(s): A09 - INFECTIOUS GASTROENTERITIS AND COLITIS, UNSPECIFIED SNOMED Code(s): 04652296 (2) Leukocytosis Status: Acute Code(s): D72.829 - ELEVATED WHITE BLOOD CELL COUNT, UNSPECIFIED SNOMED Code(s): 473448386 (3) Epigastric hernia Status: Acute Code(s): K43.9 - VENTRAL HERNIA WITHOUT OBSTRUCTION OR GANGRENE SNOMED Code(s): 554419211 Plan: 1patient presented to hospital with abdominal pain nausea vomiting and having diarrhea did have mild elevated white count CT did not show any evidence of colitis or obstruction concerning for possible gastroenteritis questionably viral versus bacterial etiology with a recent outpatient stool for Giardia and Cryptosporidium were negative. 2 stool for C. difficile and stool culture so far pending 3 CT of abdominal pelvis with oral and IV contrast did not show any acute abnormality with the pain most epigastric area and noticed to have a significant epigastric hernia more likely etiology of his pain nursing staff has been advised to apply abdominal binder and will benefit from surgical correction possibly in the outpatient setting patient is status post EGD and colonoscopy reports are pending question concern answered Dictation was produced using [employer] dictation software. please excuse any grammatical, word or spelling errors. Time with Patient: Less than 30
--- NOTE | 2024-09-02 09:14 | P.DS ---
Providers Date of admission: 08/23/24 17:54 Expected date of discharge: 08/29/24 Attending physician: Randi Romo Consults: 08/23/24 17:54 Consult Physician Routine Consulting Provider: America Johnson Consult Reason/Comments: abdominal pain Do you want consulting provider notified?: Yes 08/24/24 13:31 Consult Physician Urgent Consulting Provider: Ashanti Yung Consult Reason/Comments: abd pain, inf? Do you want consulting provider notified?: Yes Primary care physician: Elbert Choi Hospital Course: Final diagnosis Intractable diarrhea as well as abdominal pain, possibly acute infectious gastroenteritis, status post EGD colonoscopy showing duodenitis, hiatal hernia, and colon polyp that was biopsied Leukocytosis possibly secondary to above Chronic obstructive pulmonary disease, not in exacerbation Diabetes mellitus, type II Hyperlipidemia Obesity with a BMI 30.1 GI prophylaxis DVT prophylaxis Full code Discharge disposition Patient is being discharged in a stable condition with guarded prognosis to home. Patient will follow-up with Dr. Choi in the outpatient setting upon discharge. Patient is to continue with current medications and outpatient fo llow-up with general surgery as scheduled. Total time taken is greater than 35 minutes. Hospital course This is a 59-year-old male who was recently admitted with abdominal pain with intractable diarrhea being closely monitored. Patient evaluated by general surgery initially no plans for EGD although continued to have persistent abdominal pain and intolerance to diet. Patient is status post EGD/colonoscopy showing a colon polyp that was biopsied along with duodenitis and hiatal hernia. Patient diet has been advanced and tolerating continues with some diffuse abdominal pain although reports to feeling improved. Patient has been cleared by consultations for outpatient follow-up and patient will be going home. Please refer to other consultation notes for further HPI. Patient was mainta ined on empiric antibiotics and will not require antibiotics on discharge. Recommend follow-up with primary care provider this week currently no reports of chest pain, shortness of breath, or palpitations. Patient is afebrile. No reports of nausea or vomiting and patient is tolerating diet. Patient will be discharged home today. Guarded prognosis Physical exam: Gen: This is a 59-year-old male who is awake, alert and oriented x 3, well- developed, appears older than stated age, obese HEENT: Head is atraumatic, normocephalic. Pupils equal, round. Sclerae is anicteric. NECK: Supple. No JVD. No lymphadenopathy. No thyromegaly. LUNGS: Clear to auscultation. No wheezes or rhonchi. No intercostal retractions. HEART: Regular rate and rhythm. No murmur. ABDOMEN: Soft. Bowel sounds are present. No masses. Mild tenderness noted mid epigastric. EXTREMITIES: No pedal edema. No calf tenderness. NEUROLOGICAL: Patient is awake, alert and oriented x3. Cranial nerves 2 through 12 are grossly intact. Please refer to medication reconciliation sheet for a list of medications. The impression and plan of care has been dictated by Malathi Randall, Nurse Practitioner as directed. Dr. Demetrius MD I have performed a history and examination and MDM of this patient, discussed the same with the dictator, and agree with the dictator's assessment and plan as written ,documented as a scribe. Based on total visit time, I have performed more than 50% of the visit. Patient Condition at Discharge: Good Plan - Discharge Summary Discharge Rx Participant: No New Discharge Prescriptions: New Pantoprazole [Protonix] 40 mg PO DAILY #30 tab Sucralfate [Carafate] 1 gm PO AC-TID #90 tab Tamsulosin [Flomax] 0.4 mg PO DAILY #30 cap Continue Multivitamins, Thera [Multivitamin (formulary)] 1 tab PO DAILY Omeprazole Magnesium [PriLOSEC OTC] 20 mg PO DAILY Nicotine 21Mg/24Hr Patch [Habitrol] 1 patch TRANSDERM DAILY Cyanocobalamin (Vitamin B-12) [Vitamin B-12] 1,000 mcg PO DAILY metFORMIN HCL ER [Glucophage XR] 500 mg PO DAILY Sertraline [Zoloft] 100 mg PO DAILY Ondansetron Odt [Zofran ODT] 4 mg PO Q8HR PRN PRN Reason: Nausea And Vomiting Discharge Medication List Cyanocobalamin (Vitamin B-12) [Vitamin B-12] 1,000 mcg PO DAILY 09/29/22 [History] Multivitamins, Thera [Multivitamin (formulary)] 1 tab PO DAILY 09/29/22 [History] Nicotine 21Mg/24Hr Patch [Habitrol] 1 patch TRANSDERM DAILY 08/23/24 [History] Omeprazole Magnesium [PriLOSEC OTC] 20 mg PO DAILY 08/23/24 [History] Ondansetron Odt [Zofran ODT] 4 mg PO Q8HR PRN 08/23/24 [History] Sertraline [Zoloft] 100 mg PO DAILY 08/23/24 [History] metFORMIN HCL ER [Glucophage XR] 500 mg PO DAILY 08/23/24 [History] Pantoprazole [Protonix] 40 mg PO DAILY #30 tab 08/29/24 [Rx] Sucralfate [Carafate] 1 gm PO AC-TID #90 tab 08/29/24 [Rx] Tamsulosin [Flomax] 0.4 mg PO DAILY #30 cap 08/29/24 [Rx] Follow up Appointment(s)/Referral(s): Elbert Choi MD [Primary Care Provider] - 1-2 days Jonathan Davison MD [STAFF PHYSICIAN] - 1 Week (Office will call patient with date and time of appointment) Cheng West DO [Medical Doctor] - 09/13/24 9:00 am (Global referral needed from primary care physician prior to appointment. New patient packet will be mailed to patient. Please bring ID, insurance cards, and list of medications to appointment.) Patient Instructions/Handouts: Hiatal Hernia (GEN), Abdominal Pain (ED), Colonoscopy (DC), Upper Endoscopy (DC) Activity/Diet/Wound Care/Special Instructions: Activity limited until follow-up Follow-up with primary care provider on discharge Follow-up with general surgery for biopsy results in 1 week Follow-up urology outpatient Continue taking medications as prescribed Continue with Tylenol extra strength for pain Slowly advance diet as tolerated Discharge Disposition: HOME SELF-CARE
== END 2024-08-29 16:39 | disposition home or self-care (01) ==
LOC: EC 15:03 → OBSVTOIN 17:54 → 6NMEDSUR 17:54 → INTOOBSV 17:54 → 6NMEDSUR 18:11 → UNDODISIN 08-29 16:39
PROVIDERS: ADMIT Hospitalist; ATTEND Hospitalist
DX: R10.9 Unspecified abdominal pain (principal); R19.7 Diarrhea, unspecified; K29.80 Duodenitis without bleeding; K31.89 Other diseases of stomach and duodenum; K63.5 Polyp of colon; K44.9 Diaphragmatic hernia without obstruction or gangrene; K43.9 Ventral hernia without obstruction or gangrene; D72.829 Elevated white blood cell count, unspecified; J44.9 Chronic obstructive pulmonary disease, unspecified; E11.9 Type 2 diabetes mellitus without complications; E78.5 Hyperlipidemia, unspecified; E66.9 Obesity, unspecified; F17.200 Nicotine dependence, unspecified, uncomplicated; K21.9 Gastro-esophageal reflux disease without esophagitis; F32.A Depression, unspecified; F41.9 Anxiety disorder, unspecified; G47.30 Sleep apnea, unspecified; Z68.30 Body mass index [BMI] 30.0-30.9, adult; Z79.84 Long term (current) use of oral hypoglycemic drugs; Z79.899 Other long term (current) drug therapy
CPT/HCPCS: 96376 ×6; 96365; 96366 ×4; 96367; 96372 ×6; 96375; 99285; 36415; 86900; 86901; 88305; 80053 ×3; 80048 ×3; 80074; 85652; 82150; 83605; 83690; 83735; 84100; 85025 ×6; 85610; 85730; 86850; 86140; 81003; 87045; 87046; 83036; 74018; 76705; 74177 ×2; 45380; 43239; G0378 ×7; S4990 ×6; J2270; J1644 ×6; J2405 ×4; J1956 ×5; J1171 ×8; J0295; J2704; Q9967 ×2; J2003; J2470 ×7; 96361; 96374